=== PATIENT | female | born 1930 | race Caucasian/White ===

== ENCOUNTER 2017-08-19 16:10 | Emergency (ER) | payer MEDICARE ==
--- NOTE | 2017-08-19 16:47 | ER Document Report ---
ED Medical Screen (RME) - General Mode of Arrival: Ambulatory Information source: Patient TRAVEL OUTSIDE OF THE U.S. IN LAST 30 DAYS: No - General Chief Complaint: Laceration Stated Complaint: LEG LACERATION Time Seen by Provider: 08/19/17 16:30 Notes: Patient is an 86 year old female presenting to the emergency department complaining of a laceration to her left leg. Patient states she was sitting down when her daughters dog jumped over her and scratched her left leg. Patient' s daughter states she is currently on blood thinners and is unaware of her last tetanus. I have greeted and performed a rapid initial assessment of this patient. A comprehensive ED assessment and evaluation of the patient, analysis of test results and completion of the medical decision making process will be conducted by additional ED providers. (ALYCIA GAFFNEY) - Related Data Allergies/Adverse Reactions: morphine Allergy (Verified 08/19/17 16:16) phenobarbital Allergy (Verified 08/19/17 16:16) Past Medical History - General Information source: Patient, Relative Physical Exam - General General appearance: Appears well, Alert In distress: None - Extremities General lower extremity: Other - Laceration to the posterior left leg. Triangular shaped with oozing. - Vital signs Vitals: Temp Pulse Resp BP Pulse Ox 98.7 F 93 18 134/85 H 96 08/19/17 16:18 08/19/17 16:18 08/19/17 16:18 08/19/17 16:18 08/19/17 16:18 Course - Re-evaluation Re-evalutation: 08/19/17 18:27 I personally performed the services described in the documentation, reviewed and edited the documentation which was dictated to the scribe in my presence, and it accurately records my words and actions. (LULI HOLGUIN) - Vital Signs Vital signs: Temp Pulse Resp BP Pulse Ox 97.6 F 94 20 114/69 94 08/19/17 17:51 08/19/17 17:51 08/19/17 17:51 08/19/17 17:51 08/19/17 17:51 Doctor's Discharge - Discharge Clinical Impression: Skin laceration Disposition: HOME, SELF-CARE Instructions: Laceration Care ([facility]) Prescriptions: Sulfamethoxazole/Trimethoprim [Bactrim Ds Tablet] 1 each PO BID #14 tablet Scribe Documentation - Scribe Written by Corona:: Corona Monge, 08/19/2017 16:47 acting as scribe for :: Yuly
[2017-08-19] MEDS ORDERED: DIPH/PERTUSS(ACELL)/TETANUS VAC/PF 0.5 ML SYR (>=10YO) IM ONE (16:48)
--- NOTE | 2017-08-19 17:09 | ER Document Report ---
ED Wound - General Chief Complaint: Laceration Stated Complaint: LEG LACERATION Time Seen by Provider: 08/19/17 16:30 Mode of Arrival: Ambulatory Information source: Patient, Relative Notes: 86 years old elderly female was sleeping with her dog and the jaw dog jumped the dog's nail scratched on the left lower leg posteriorly and sustain a small laceration therefore she was brought to the ED. She is not complaining of any pain or discomfort. She is on blood thinners had bled but not currently. TRAVEL OUTSIDE OF THE [place]. IN LAST 30 DAYS: No - Related Data Allergies/Adverse Reactions: morphine Allergy (Verified 08/19/17 16:16) phenobarbital Allergy (Verified 08/19/17 16:16) Past Medical History - General Information source: Patient, Relative - Social History Smoking Status: Never Smoker Chew tobacco use (# tins/day): No Frequency of alcohol use: None Drug Abuse: None Family History: CVA, Hypertension Patient has suicidal ideation: No Patient has homicidal ideation: No Renal/ Medical History: Denies: Hx Peritoneal Dialysis - Kidney transplant Review of Systems - Review of Systems Notes: REVIEW OF SYSTEMS: CONSTITUTIONAL : Denies fever, chills, or sweats. Denies recent illness. EENT: Denies eye, ear, throat, or mouth pain or symptoms. Denies nasal or sinus congestion or discharge. Denies throat, tongue, or mouth swelling or difficulty swallowing. CARDIOVASCULAR: Denies chest pain. Denies palpitations or racing or irregular heart beat. Denies ankle edema. RESPIRATORY: Denies cough, cold, or chest congestion. Denies shortness of breath, difficulty breathing, or wheezing. GASTROINTESTINAL: Denies abdominal pain or distention. Denies nausea, vomiting , or diarrhea. Denies blood in vomitus, stools, or per rectum. Denies black, tarry stools. Denies constipation. GENITOURINARY: Denies difficulty urinating, painful urination, burning, frequency, blood in urine, or discharge. FEMALE GENITOURINARY: Denies vaginal bleeding, heavy or abnormal periods, irregular periods. Denies vaginal discharge or odor. MUSCULOSKELETAL: As per history of complain SKIN: Denies rash, lesions or sores. HEMATOLOGIC : Denies easy bruising or bleeding. LYMPHATIC: Denies swollen, enlarged glands. NEUROLOGICAL: Denies confusion or altered mental status. Denies passing out or loss of consciousness. Denies dizziness or lightheadedness. Denies headache. Denies weakness or paralysis or loss of use of either side. Denies problems with gait or speech. Denies sensory loss, numbness, or tingling. Denies seizures. PSYCHIATRIC: Denies anxiety or stress. Denies depression, suicidal ideation, or homicidal ideation. ALL OTHER SYSTEMS REVIEWED AND NEGATIVE. PHYSICAL EXAMINATION: GENERAL: Elderly female not in any major distress HEAD: Atraumatic, normocephalic. Musculoskeletal: Normal range of motion, no pitting or edema. No cyanosis. NEUROLOGICAL: Cranial nerves grossly intact. Normal speech, normal gait. Normal sensory, motor exams PSYCH: Normal mood, normal affect. SKIN: Skin over the left lower leg has a V-shaped laceration of total length of about 4 cm noted which is a full skin thickness more for skin tag. Dictation was performed using [employer] voice recognition software Physical Exam - Vital signs Vitals: Temp Pulse Resp BP Pulse Ox 98.7 F 93 18 134/85 H 96 08/19/17 16:18 08/19/17 16:18 08/19/17 16:18 08/19/17 16:18 08/19/17 16:18 Course - Re-evaluation Re-evalutation: 08/19/17 17:07 Skin was cleaned and adhered with Steri-Strips, given antibiotic - Vital Signs Vital signs: Temp Pulse Resp BP Pulse Ox 98.7 F 93 18 134/85 H 96 08/19/17 16:18 08/19/17 16:18 08/19/17 16:18 08/19/17 16:18 08/19/17 16:18 Discharge - Discharge Clinical Impression: Skin laceration Disposition: HOME, SELF-CARE Instructions: Laceration Care ([facility]) Prescriptions: Sulfamethoxazole/Trimethoprim [Bactrim Ds Tablet] 1 each PO BID #14 tablet
[2017-08-19 17:52] VITALS: BP 114/69
== END 2017-08-19 18:02 | disposition home or self-care (01) ==
LOC: ER 16:10
DX: S81.812A Laceration without foreign body, left lower leg, initial encounter (principal); W54.1XXA Struck by dog, initial encounter; Y93.84 Activity, sleeping; Z79.01 Long term (current) use of anticoagulants; Z88.5 Allergy status to narcotic agent; Z88.8 Allergy status to other drugs, medicaments and biological substances
CPT/HCPCS: 99283

== ENCOUNTER 2017-12-08 16:03 | Emergency (ER) | payer MEDICARE ==
--- NOTE | 2017-12-08 19:13 | ER Document Report ---
ED Medical Screen (RME) - General Chief Complaint: Shortness Of Breath Stated Complaint: SHORTNESS OF BREATH Time Seen by Provider: 12/08/17 18:59 Notes: Patient presents with heaviness in her chest that is worse with lying down. Patient was recently hospitalized in [place] for pneumonia and was there for approximately 5 days. She was discharged on November 29 and was provided Levaquin until December 03. She states that the heaviness is worse with lying down any has been going on since she left the hospital but it is been worse over the last several days so comes to the emergent she. She also states that the leg swelling bilaterally is become mildly increased from her baseline. She does not have a history of atrial fibrillation but she does have cardiac stents is on Plavix and aspirin with her last stent approximately 2 years ago. I have greeted and performed a rapid initial assessment of this patient. A comprehensive ED assessment and evaluation of the patient, analysis of test results and completion of the medical decision making process will be conducted by additional ED providers. PHYSICAL EXAMINATION: GENERAL: Frail elderly patient and in no acute distress. HEAD: Atraumatic, normocephalic. EYES: Pupils equal round extraocular movements intact, conjunctiva are normal. ENT: Nares patent NECK: Normal range of motion LUNGS: No respiratory distress, lung urban clear Musculoskeletal: Normal range of motion NEUROLOGICAL: Normal speech, normal gait. PSYCH: Normal mood, normal affect. SKIN: Warm, Dry, stasis dermatitis bilateral lower extremities with +1 pedal edema TRAVEL OUTSIDE OF THE U.S. IN LAST 30 DAYS: No - Related Data Allergies/Adverse Reactions: morphine Allergy (Verified 08/19/17 16:16) phenobarbital Allergy (Verified 08/19/17 16:16) Past Medical History - Social History Chew tobacco use (# tins/day): No Frequency of alcohol use: Rare Drug Abuse: None - Past Medical History Cardiac Medical History: Reports: Hx Heart Attack, Hx Hypercholesterolemia, Hx Hypertension - controlled Renal/ Medical History: Denies: Hx Peritoneal Dialysis Past Surgical History: Reports: Hx Kidney (Renal Surgery) - transplant Physical Exam - Vital signs Vitals: Temp Pulse Resp BP Pulse Ox 97.3 F 98 18 107/71 96 12/08/17 16:26 12/08/17 16:26 12/08/17 16:26 12/08/17 16:26 12/08/17 16:26 Course - Vital Signs Vital signs: Temp Pulse Resp BP Pulse Ox 97.3 F 98 18 107/71 96 12/08/17 16:26 12/08/17 16:26 12/08/17 16:26 12/08/17 16:26 12/08/17 16:26
--- NOTE | 2017-12-08 20:40 | ER Document Report ---
ED Respiratory Problem - General Chief Complaint: Shortness Of Breath Stated Complaint: SHORTNESS OF BREATH Time Seen by Provider: 12/08/17 18:59 Mode of Arrival: Ambulatory Information source: Patient, Relative TRAVEL OUTSIDE OF THE [place] IN LAST 30 DAYS: No - HPI Patient complains to provider of: Short of breath Onset: Other - 2-3 days Duration: Intermittent episodes Quality of pain: Pressure Severity: Moderate Context: Hx COPD Short of Breath: Mild Cough: Nonproductive Associated symptoms: Chest pain/discomfort, Short of breath Similar symptoms previously: Yes Recently seen / treated by doctor: Yes Notes: Patient is an 87-year-old female brought to the emergency room by daughter for complaints of chest heaviness with shortness of breath worsens at nighttime when she lies down to go to sleep, it has been going on for the past 3 nights, she was recently admitted at outside hospital for pneumonia, has completed a course of antibiotics on 12/03, denies any fevers, denies any symptoms at present time, she did recently travel to [place] to attend a family , patient does not use oxygen at home but has a history of COPD as well as coronary artery disease, denies a history of atrial fibrillation - Related Data Allergies/Adverse Reactions: morphine Allergy (Verified 08/19/17 16:16) phenobarbital Allergy (Verified 08/19/17 16:16) Past Medical History - General Information source: Patient - Social History Smoking Status: Never Smoker Chew tobacco use (# tins/day): No Frequency of alcohol use: Rare Drug Abuse: None Family History: CVA, Hypertension Patient has suicidal ideation: No Patient has homicidal ideation: No - Past Medical History Cardiac Medical History: Reports: Hx Heart Attack, Hx Hypercholesterolemia, Hx Hypertension - controlled Renal/ Medical History: Denies: Hx Peritoneal Dialysis Past Surgical History: Reports: Hx Kidney (Renal Surgery) - transplant Review of Systems - Review of Systems Constitutional: No symptoms reported EENT: No symptoms reported Cardiovascular: Chest pain Respiratory: Short of breath Gastrointestinal: No symptoms reported Genitourinary: No symptoms reported Female Genitourinary: No symptoms reported Musculoskeletal: No symptoms reported Skin: No symptoms reported Hematologic/Lymphatic: No symptoms reported Neurological/Psychological: No symptoms reported -: Yes All other systems reviewed and negative Physical Exam - Vital signs Vitals: Temp Pulse Resp BP Pulse Ox 97.3 F 98 18 107/71 96 12/08/17 16:26 12/08/17 16:26 12/08/17 16:26 12/08/17 16:26 12/08/17 16:26 Interpretation: Normal - General General appearance: Appears well, Alert - HEENT Head: Normocephalic, Atraumatic Eyes: Normal Pupils: PERRL - Respiratory Respiratory status: No respiratory distress Chest status: Nontender Breath sounds: Normal Chest palpation: Normal - Cardiovascular Rhythm: Regular Heart sounds: Normal auscultation Murmur: No - Abdominal Inspection: Normal Distension: No distension Bowel sounds: Normal Tenderness: Nontender Organomegaly: No organomegaly - Back Back: Normal, Nontender - Extremities General upper extremity: Normal inspection, Nontender, Normal color, Normal ROM , Normal temperature General lower extremity: Nontender, Edema, Normal ROM, Normal temperature. No: Christin's sign - Neurological Neuro grossly intact: Yes Cognition: Normal Orientation: AAOx4 Verna Coma Scale Eye Opening: Spontaneous [place] Coma Scale Verbal: Oriented [place] Coma Scale Motor: Obeys Commands Verna Coma Scale Total: 15 Speech: Normal Motor strength normal: LUE, RUE, LLE, RLE Sensory: Normal - Psychological Associated symptoms: Normal affect, Normal mood - Skin Skin Temperature: Warm Skin Moisture: Dry Skin Color: Normal Course - Re-evaluation Re-evalutation: 12/08/17 22:22 Medical records were received from outside hospital that patient recently stated , EKG is consistent with atrial fibrillation, therefore today's EKG is not new onset A. fib, patient is already on Xarelto, findings today consistent with mild congestive heart failure, findings discussed with patient and daughter at bedside, she was offered IV Lasix which she refused but she was agreeable to taking p.o. Lasix at home, was given a prescription for 1 week's worth and advised to follow-up with her primary care provider for further evaluation and treatment, patient acknowledges understanding and agreement with this plan - Vital Signs Vital signs: Temp Pulse Resp BP Pulse Ox 97.3 F 98 21 H 134/87 H 94 12/08/17 16:26 12/08/17 16:26 12/08/17 23:24 12/08/17 23:24 12/08/17 23:24 - Laboratory Result Diagrams: 12/08/17 21:08 12/08/17 21:08 Laboratory results interpreted by me: 12/08/17 12/08/17 12/08/17 21:08 21:08 21:08 RBC 3.63 L MCV 103 H MCH 34.7 H RDW 15.9 H Carbon Dioxide 31 H Creatinine 0.51 L NT-Pro-B Natriuret Pep 7540 H Total Protein 5.7 L - Diagnostic Test Radiology reviewed: Image reviewed, Reports reviewed - EKG Interpretation by Me Rhythm: A.Fib Additional EKG results interpreted by me: 12/08/17 22:23 Ventricular paced rhythm at a rate of 116 Discharge - Discharge Clinical Impression: Congestive heart failure Qualifiers: Heart failure type: other Qualified Code(s): I50.9 - Heart failure, unspecified Condition: Stable Disposition: HOME, SELF-CARE Instructions: Congestive Heart Failure ([facility]) Additional Instructions: Follow up with your primary care provider in one to 2 days. Return to the emergency room immediately if symptoms worsen or any additional concerns. Prescriptions: Furosemide [Lasix 40 mg Tablet] 40 mg PO QAM #7 tablet
[2017-12-08 21:44] LABS: ABSOLUTE LYMPHOCYTES (AUTO) 1.1 10^3/uL (0.5-4.7); ABSOLUTE MONOCYTES (AUTO) 0.5 10^3/uL (0.1-1.4); BASOPHILS % (AUTO) 0.4 % (0-2); EOSINOPHILS % (AUTO) 0.7 % (0-6); HEMATOCRIT 37.5 % (36.0-47.0); HEMOGLOBIN 12.6 g/dL (12.0-15.5); LYMPHOCYTES % (AUTO) 24.4 % (13-45); MEAN CORPUSCULAR HEMOGLOBIN 34.7 pg (27.0-33.4); MEAN CORPUSCULAR HGB CONC 33.6 g/dL (32.0-36.0); MEAN CORPUSCULAR VOLUME 103 fl (80-97); MONOCYTES % (AUTO) 9.7 % (3-13); PLATELET COUNT 150 10^3/uL (150-450); RED BLOOD COUNT 3.63 10^6/uL (3.72-5.28); RED CELL DISTRIBUTION WIDTH 15.9 % (11.5-14.0); SEGMENTED NEUTROPHILS % (AUTO) 64.8 % (42-78); TOTAL CELLS COUNTED % (AUTO) 100 %; WHITE BLOOD COUNT 4.7 10^3/uL (4.0-10.5)
--- NOTE | 2017-12-08 21:55 | RADIOLOGY REPORT (SQ) ---
EXAM DESCRIPTION: CHEST 2 VIEWS COMPLETED DATE/TIME: 12/08/2017 9:38 pm REASON FOR STUDY: chest heaviness COMPARISON: None. EXAM PARAMETERS: NUMBER OF VIEWS: two views TECHNIQUE: Digital Frontal and Lateral radiographic views of the chest acquired. RADIATION DOSE: NA LIMITATIONS: none FINDINGS: LUNGS AND PLEURA: Interstitial changes. Increased opacification in the medial right base. Minimal right pleural effusion. MEDIASTINUM AND HILAR STRUCTURES: No masses or contour abnormalities. HEART AND VASCULAR STRUCTURES: Cardiomegaly. Pulmonary vascular congestion. No brandon failure. BONES: No acute findings. HARDWARE: None in the chest. OTHER: No other significant finding. IMPRESSION: Cardiomegaly without failure. Chronic lung changes. Cannot exclude a minimal infiltrat e in the medial right base. TECHNICAL DOCUMENTATION: JOB ID: [id number] [employer]- All Rights Reserved Reading location - IP/workstation name: [email or web address]
[2017-12-08 21:59] LABS: INTERNATIONAL RATION (INR) 1.06; PROTHROMBIN TIME 14.4 SEC (11.4-15.4)
[2017-12-08 22:07] LABS: ALANINE AMINOTRANSFERASE 41 U/L (9-52); ALBUMIN 3.7 g/dL (3.5-5.0); ALKALINE PHOSPHATASE 90 U/L (38-126); ANION GAP 7 (5-19); ASPARTATE AMINO TRANSFERASE 35 U/L (14-36); BILIRUBIN,DIRECT 0.2 mg/dL (0.0-0.4); BILIRUBIN,TOTAL 0.4 mg/dL (0.2-1.3); BLOOD UREA NITROGEN 20 mg/dL (7-20); CALCIUM 9.5 mg/dL (8.4-10.2); CARBON DIOXIDE 31 mmol/L (22-30); CHLORIDE 103 mmol/L (98-107); GLUCOSE 90 mg/dL (75-110); POTASSIUM 4.4 mmol/L (3.6-5.0); SODIUM 141.1 mmol/L (137-145); TOTAL PROTEIN 5.7 g/dL (6.3-8.2)
[2017-12-08 22:15] LABS: NT PRO BNP 7540 pg/mL (<450)
[2017-12-08 22:16] LABS: TROPONIN I < 0.012 ng/mL
--- NOTE | 2017-12-08 22:58 | EKG REPORT ---
SEVERITY:- ABNORMAL ECG - ATRIAL FIBRILLATION MULTIFORM VENTRICULAR PREMATURE COMPLEXES LEFT VENTRICULAR HYPERTROPHY : Confirmed by: Ben Purdy 08-Dec-2017 22:57:27
[2017-12-08] MEDS ORDERED: FUROSEMIDE INJ/PF 40 MG/4 ML SDV IV ONE (23:17)
[2017-12-08 23:27] VITALS: BP 134/87
== END 2017-12-09 00:08 | disposition home or self-care (01) ==
LOC: ER 16:03
DX: I50.9 Heart failure, unspecified (principal); R06.02 Shortness of breath; R07.9 Chest pain, unspecified; I48.91 Unspecified atrial fibrillation; E78.00 Pure hypercholesterolemia, unspecified; I11.0 Hypertensive heart disease with heart failure; Z88.6 Allergy status to analgesic agent; I25.2 Old myocardial infarction
CPT/HCPCS: 36415; 71046; 80053; 83735; 83880; 84443; 84484; 85025; 85610; 93005; 93010; 99285

== ENCOUNTER → 2017-12-27 | Outpatient (CLI) | payer MEDICARE ==
[2017-12-27 14:22] LABS: ABSOLUTE MONOCYTES (AUTO) 0.3 10^3/uL (0.1-1.4); ABSOLUTE NEUT (AUTO) 3.2 10^3/uL (1.7-8.2); BASOPHILS % (AUTO) 0.7 % (0-2); EOSINOPHILS % (AUTO) 0.8 % (0-6); HEMOGLOBIN 13.3 g/dL (12.0-15.5); LYMPHOCYTES % (AUTO) 22.3 % (13-45); MEAN CORPUSCULAR HEMOGLOBIN 34.6 pg (27.0-33.4); MEAN CORPUSCULAR HGB CONC 33.3 g/dL (32.0-36.0); MEAN CORPUSCULAR VOLUME 104 fl (80-97); MONOCYTES % (AUTO) 7.1 % (3-13); PLATELET COUNT 146 10^3/uL (150-450); RED BLOOD COUNT 3.85 10^6/uL (3.72-5.28); RED CELL DISTRIBUTION WIDTH 16.1 % (11.5-14.0); SEGMENTED NEUTROPHILS % (AUTO) 69.1 % (42-78); TOTAL CELLS COUNTED % (AUTO) 100 %; WHITE BLOOD COUNT 4.7 10^3/uL (4.0-10.5)
[2017-12-27 14:22] LABS: APPEARANCE,URINE SLIGHTLY-CLOUDY; BILIRUBIN,URINE NEGATIVE (NEGATIVE); COLOR,URINE YELLOW; GLUCOSE, URINE NEGATIVE (NEGATIVE); KETONES,URINE NEGATIVE (NEGATIVE); LEUKOCYTE ESTERASE,URINE LARGE (NEGATIVE); NITRITE,URINE NEGATIVE (NEGATIVE); PROTEIN,URINE 30 mg/dL (NEGATIVE); URINE SPECIFIC GRAVITY 1.021; UROBILINOGEN,URINE NEGATIVE mg/dL (<2.0)
[2017-12-27 14:42] LABS: ALANINE AMINOTRANSFERASE 33 U/L (9-52); ALBUMIN 4.1 g/dL (3.5-5.0); ALKALINE PHOSPHATASE 89 U/L (38-126); ANION GAP 12 (5-19); ASPARTATE AMINO TRANSFERASE 32 U/L (14-36); BILIRUBIN,DIRECT 0.2 mg/dL (0.0-0.4); BILIRUBIN,TOTAL 0.2 mg/dL (0.2-1.3); BLOOD UREA NITROGEN 32 mg/dL (7-20); CALCIUM 9.8 mg/dL (8.4-10.2); CARBON DIOXIDE 30 mmol/L (22-30); CHLORIDE 103 mmol/L (98-107); GLUCOSE 102 mg/dL (75-110); POTASSIUM 4.4 mmol/L (3.6-5.0); SODIUM 145.2 mmol/L (137-145); TOTAL PROTEIN 6.7 g/dL (6.3-8.2)
== END ==
LOC: OD 13:10
PROVIDERS: ATTEND Internal Medicine Nephrology
DX: I50.9 Heart failure, unspecified (principal); R60.9 Edema, unspecified; Z94.0 Kidney transplant status
CPT/HCPCS: 36415; 80053; 81001; 83735; 85025

== ENCOUNTER 2018-01-15 13:56 | Inpatient (IN) | payer MEDICARE ==
--- NOTE | 2018-01-15 14:28 | RADIOLOGY REPORT (SQ) ---
EXAM DESCRIPTION: CHEST SINGLE VIEW COMPLETED DATE/TIME: 01/15/2018 2:17 pm REASON FOR STUDY: cough COMPARISON: None. EXAM PARAMETERS: NUMBER OF VIEWS: One view. TECHNIQUE: Single frontal radiographic view of the chest acquired. RADIATION DOSE: NA LIMITATIONS: None. FINDINGS: LUNGS AND PLEURA: Chronic bibasilar pleuroparenchymal changes. MEDIASTINUM AND HILAR STRUCTURES: No masses. Contour normal. HEART AND VASCULAR STRUCTURES: Cardiomegaly with aortic atherosclerosis. The pulmonary vasculature a ppears less prominent. BONES: Dorsal scoliosis convex left. HARDWARE: None in the chest. OTHER: No other significant finding. IMPRESSION: Cardiomegaly. Chronic bibasilar pleuroparenchymal changes. TECHNICAL DOCUMENTATION: JOB ID: [id number] [employer]- All Rights Reserved Reading location - IP/workstation name: [email or web address]
[2018-01-15] MEDS ORDERED: METOPROLOL TARTRATE PF/INJ 5 MG/5 ML SDV IV ONE (14:42)
--- NOTE | 2018-01-15 14:42 | ER Document Report ---
ED General - General Chief Complaint: General Weakness Stated Complaint: GENERAL WEAKNESS Time Seen by Provider: 01/15/18 14:04 Notes: The patient is an 87-year-old female, past medical history kidney transplant in 1959, prior [place] in the , prior stroke in the , CHF, A fib (on Plavix and 325 mg ASA), presents after having generalized weakness for a few minutes earlier today. Symptoms completely resolved upon arrival to the ER. She recently moved from [facility] to live with her grandchildren. She denies any focal weakness, palpitations, fevers, cough, shortness of breath , nausea, vomiting, ataxia, headache, blurry vision, numbness, tingling or syncope. TRAVEL OUTSIDE OF THE [place] IN LAST 30 DAYS: No - Related Data Allergies/Adverse Reactions: morphine Allergy (Verified 08/19/17 16:16) phenobarbital Allergy (Verified 08/19/17 16:16) Past Medical History - General Information source: Patient, Relative - Social History Smoking Status: Unknown if Ever Smoked Family History: CVA, Hypertension - Past Medical History Cardiac Medical History: Reports: Hx Heart Attack, Hx Hypercholesterolemia, Hx Hypertension - controlled Renal/ Medical History: Denies: Hx Peritoneal Dialysis Past Surgical History: Reports: Hx Kidney (Renal Surgery) - transplant Review of Systems - Review of Systems Notes: REVIEW OF SYSTEMS: CONSTITUTIONAL: -fevers, -chills EENT: -eye pain, -difficulty swallowing, -nasal congestion CARDIOVASCULAR: -chest pain, -syncope. RESPIRATORY: -cough, -SOB GASTROINTESTINAL: -abdominal pain, -nausea, -vomiting, -diarrhea GENITOURINARY: -dysuria, -hematuria MUSCULOSKELETAL: -back pain, -neck pain SKIN: -rash or skin lesions. HEMATOLOGIC: -easy bruising or bleeding. LYMPHATIC: -swollen, enlarged glands. NEUROLOGICAL: -altered mental status or loss of consciousness, -headache, - neurologic symptoms PSYCHIATRIC: -anxiety, -depression. ALL OTHER SYSTEMS REVIEWED AND NEGATIVE. Physical Exam - Vital signs Vitals: Resp Pulse Ox 20 97 01/15/18 14:29 01/15/18 14:29 - Notes Notes: PHYSICAL EXAMINATION: GENERAL: Well-appearing, well-nourished and in no acute distress. HEAD: Atraumatic, normocephalic. EYES: Chronic right eyelid droop, pupils equal round and reactive to light, conjunctiva are normal. ENT: nares patent, oropharynx clear without exudates. Moist mucous membranes. NECK: Normal range of motion, supple without lymphadenopathy LUNGS: Breath sounds clear to auscultation bilaterally and equal. No wheezes rales or rhonchi. HEART: Irregularly irregular rhythm, tachycardia ABDOMEN: Soft, nontender, normoactive bowel sounds. No guarding, no rebound. No masses appreciated. EXTREMITIES: Normal range of motion, no pitting or edema. No cyanosis. NEUROLOGICAL: Cranial nerves grossly intact. Normal speech, normal gait. Normal sensory and motor exams. 5/5 strength in all 4 extremities. Initial tremor present. PSYCH: Normal mood, normal affect. SKIN: Warm, Dry, normal turgor, no rashes or lesions noted. Course - Re-evaluation Re-evalutation: Patient appears well. She has no acute focal neuro symptoms on physical exam. She is in A fib. w/ RVR with rates of 100's-130's. BP is remaining normal. She is unsure if she took her morning Metoprolol dose. 01/15/18 15:10 Pt went into about 8 seconds of polymorphic ventricular tachycardia, consistent with torsades. She was asymptomatic at this time and it resolved spontaneously. Labs are still pending, but patient provided 2 g of magnesium. Spoke to Dr. Byrd (cardiology consult) and he does not recommend beginning antiarrhythmics at this time. He will consult on patient and recommends admission to [place] to [facility]. She has not seen a PMD in [facility] since moving here a few months ago. Pt would like to be a FULL CODE at this time. 01/15/18 16:13 Labs are unremarkable, other than elevated pro-BNP, but she does not appear fluid overloaded and has no pulmonary edema on CXR. Spoke to Clair Walden NP (Hospitalist) and she has accepted patient to [facility] as Inpatient. Pt' s HR is 90's-100's after 2.5 mg IV metoprolol and she remains asymptomatic. - Vital Signs Vital signs: Temp Pulse Resp BP Pulse Ox 21 H 112/77 97 01/15/18 15:48 01/15/18 15:48 01/15/18 15:48 - Laboratory Result Diagrams: 01/15/18 14:58 01/15/18 14:58 Laboratory results interpreted by me: 01/15/18 01/15/18 01/15/18 14:58 14:58 14:58 RBC 3.58 L MCV 103 H MCH 34.3 H RDW 15.8 H Plt Count 127 L BUN 33 H Glucose 112 H Creatine Kinase 23 L NT-Pro-B Natriuret Pep 9530 H Total Protein 6.0 L Urine Protein Urine Ascorbic Acid 01/15/18 15:30 RBC MCV MCH RDW Plt Count BUN Glucose Creatine Kinase NT-Pro-B Natriuret Pep Total Protein Urine Protein 100 H Urine Ascorbic Acid 40 H - Diagnostic Test Radiology reviewed: Image reviewed, Reports reviewed Radiology results interpreted by me: CXR: Cardiomegaly. Chronic bibasilar pleuroparenchymal changes. - EKG Interpretation by Me EKG shows normal: Intervals, ST-T Waves Rate: Tachycardia Rhythm: A.Fib Critical Care Note - Critical Care Note Total time excluding time spent on procedures (mins): 36 Discharge - Discharge Clinical Impression: Polymorphic ventricular tachycardia, Atrial fibrillation with rapid ventricular response, Generalized weakness Condition: Stable Disposition: ADMITTED INPATIENT Admitting Provider: Hospitalist [facility] Unit Admitted: [facility]
[2018-01-15 15:16] LABS: ABSOLUTE MONOCYTES (AUTO) 0.4 10^3/uL (0.1-1.4); ABSOLUTE NEUT (AUTO) 3.6 10^3/uL (1.7-8.2); BASOPHILS % (AUTO) 0.7 % (0-2); EOSINOPHILS % (AUTO) 0.4 % (0-6); HEMATOCRIT 36.8 % (36.0-47.0); HEMOGLOBIN 12.3 g/dL (12.0-15.5); LYMPHOCYTES % (AUTO) 19.7 % (13-45); MEAN CORPUSCULAR HEMOGLOBIN 34.3 pg (27.0-33.4); MEAN CORPUSCULAR HGB CONC 33.4 g/dL (32.0-36.0); MEAN CORPUSCULAR VOLUME 103 fl (80-97); MONOCYTES % (AUTO) 7.8 % (3-13); PLATELET COUNT 127 10^3/uL (150-450); RED BLOOD COUNT 3.58 10^6/uL (3.72-5.28); RED CELL DISTRIBUTION WIDTH 15.8 % (11.5-14.0); SEGMENTED NEUTROPHILS % (AUTO) 71.4 % (42-78); TOTAL CELLS COUNTED % (AUTO) 100 %
[2018-01-15 15:35] LABS: ALANINE AMINOTRANSFERASE 27 U/L (9-52); ALBUMIN 3.5 g/dL (3.5-5.0); ALKALINE PHOSPHATASE 96 U/L (38-126); ANION GAP 11 (5-19); ASPARTATE AMINO TRANSFERASE 28 U/L (14-36); BILIRUBIN,DIRECT 0.3 mg/dL (0.0-0.4); BILIRUBIN,TOTAL 0.5 mg/dL (0.2-1.3); BLOOD UREA NITROGEN 33 mg/dL (7-20); CALCIUM 9.2 mg/dL (8.4-10.2); CARBON DIOXIDE 26 mmol/L (22-30); CHLORIDE 106 mmol/L (98-107); CREATINE KINASE 23 U/L (30-135); GLUCOSE 112 mg/dL (75-110); POTASSIUM 3.9 mmol/L (3.6-5.0); SODIUM 143.2 mmol/L (137-145)
[2018-01-15 15:46] LABS: NT PRO BNP 9530 pg/mL (<450)
[2018-01-15] MEDS: MAGNESIUM SULFATE/D5W 1 GM/100 ML RTUPB IV SCH ×2 (15:47→16:12)
[2018-01-15 15:49] LABS: TROPONIN I < 0.012 ng/mL
[2018-01-15 15:52] LABS: FREE T3 3.72 pg/mL (2.77-5.27); FREE T4 (FREE THYROXINE) 1.5 ng/dL (0.78-2.19)
[2018-01-15 16:01] LABS: APPEARANCE,URINE CLEAR; BILIRUBIN,URINE NEGATIVE (NEGATIVE); COLOR,URINE AMBER; GLUCOSE, URINE NEGATIVE (NEGATIVE); KETONES,URINE NEGATIVE (NEGATIVE); LEUKOCYTE ESTERASE,URINE NEGATIVE (NEGATIVE); NITRITE,URINE NEGATIVE (NEGATIVE); PROTEIN,URINE 100 mg/dL (NEGATIVE); URINE SPECIFIC GRAVITY 1.023; UROBILINOGEN,URINE NEGATIVE mg/dL (<2.0)
[2018-01-15 16:05] LABS: THYROID STIMULATING HORMONE 1.79 uIU/mL (0.47-4.68)
[2018-01-15] MEDS ORDERED: NORMAL SALINE 1000 ML 1,000 ML IV PRN (16:51)
[2018-01-15] MEDS ORDERED: ASPIRIN 81 MG TABLET, CHEWABLE PO ONE (17:15)
[2018-01-15] MEDS ORDERED: CLOPIDOGREL BISULFATE 75 MG TABLET PO ONE (17:15)
--- NOTE | 2018-01-15 17:41 | PDOC H&P ---
History of Present Illness Patient complains of: Generalized weakness History of Present Illness: YAHIR MERAZ is a 87 year old female who was a poor historian; unfortunately , her daughter is also a poor historian and her home medications are not available. It is known that the patient has a past medical history of kidney transplant in the 1960s, prior PR, possible CVA, apparent CHF (although the patient and family member deny), A. fib (on Plavix and aspirin), Gonzalez's palsy and an intention tremor who presented to the emergency department today by EMS for complaint of generalized weakness 24 hours. The patient denies any other symptoms; she denies fever, chills, body aches, chest pain, palpitations, dyspnea, orthopnea, abdominal pain, nausea vomiting or diarrhea. While in the emergency department she was noted on telemetry to be in A. fib with a heart rate of 110-130. She briefly had a period of polymorphic ventricular tachycardia suspicious for torsades. The emergency department has provided 2 g of IV magnesium. Chest x-ray reveals cardiomegaly, chemistry shows a BUN of 33, elevated proBNP of 9530, normal potassium, magnesium, creatinine, and thyroid panel. The patient appears to be cachectic and significantly dehydrated; breath sounds are clear, skin tenting is present, and dry mucous membranes. The emergency department has already consulted Dr. Ryan who is agreed to assist in managing this patient. He recommends initiating diltiazem 30 mg p.o. every 6 hours. She is referred to the hospitalist service for admission and management of generalized weakness, atrial fibrillation, dysrhythmia, and dehydration. Past Medical History Cardiac Medical History: Reports: Atrial Fibrillation, Congestive Heart Failure , Myocardial Infarction, Hyperlipidema, Hypertension Pulmonary Medical History: Reports: None EENT Medical History: Reports: None Neurological Medical History: Reports: Ischemic CVA, Other - Armbrust palsy Denies: Seizures Endocrine Medical History: Reports: None Renal/ Medical History: Reports: Other - Kidney transplant Malignancy Medical History: Reports: None GI Medical History: Reports: None Musculoskeltal Medical History: Reports: None Skin Medical History: Reports: None Psychiatric Medical History: Reports: None Traumatic Medical History: Reports: None Hematology: Reports: None Infectious Medical History: Reports: None Past Surgical History Past Surgical History: Reports: Renal Transplant Denies: Internal Defibrillator, Pacemaker Social History Information Source: Patient, Relative Lives with: Family Smoking Status: Never Smoker Frequency of Alcohol Use: None Hx Recreational Drug Use: No Drugs: None - Advance Directive Resuscitation Status: Full Code Surrogate healthcare decision maker:: The patient's daughter, Kathie Lim, Family History Family History: CVA, Hypertension Family History: Limited 2/2 poor historian Parental Family History Reviewed: Yes Children Family History Reviewed: Yes Sibling(s) Family History Reviewed.: Yes Medication/Allergy Home Medications: Sulfamethoxazole/Trimethoprim [Bactrim Ds Tablet] 1 each PO BID #14 tablet 08/19 Furosemide [Lasix 40 mg Tablet] 40 mg PO QAM #7 tablet 12/08/17 Allergies/Adverse Reactions: morphine Allergy (Verified 08/19/17 16:16) phenobarbital Allergy (Verified 08/19/17 16:16) Review of Systems Constitutional: PRESENT: fatigue, weakness. ABSENT: chills, fever(s), headache( s), weight gain, weight loss Eyes: ABSENT: visual disturbances Ears: ABSENT: hearing changes Cardiovascular: ABSENT: chest pain, dyspnea on exertion, edema, orthropnea, palpitations Respiratory: ABSENT: cough, hemoptysis Gastrointestinal: ABSENT: abdominal pain, constipation, diarrhea, hematemesis, hematochezia, nausea, vomiting Genitourinary: PRESENT: difficulty urinating. ABSENT: dysuria, hematuria Musculoskeletal: ABSENT: joint swelling Integumentary: ABSENT: rash, wounds Neurological: PRESENT: weakness. ABSENT: abnormal gait, abnormal speech, confusion, dizziness, focal weakness, syncope Psychiatric: ABSENT: anxiety, depression, homidical ideation, suicidal ideation Endocrine: ABSENT: cold intolerance, heat intolerance, polydipsia, polyuria Hematologic/Lymphatic: ABSENT: easy bleeding, easy bruising Physical Exam Vital Signs: Temp Pulse Resp BP Pulse Ox 19 99/71 L 96 01/15/18 16:31 01/15/18 16:31 01/15/18 16:31 General appearance: PRESENT: no acute distress, cooperative, disheveled, hard of hearing, well-developed, other - Cachectic, poor hygiene Head exam: PRESENT: atraumatic, normocephalic Eye exam: PRESENT: conjunctiva pink, EOMI, PERRLA, other - Limited elevation of right upper eyelid secondary to Gonzalez's palsy. ABSENT: scleral icterus Ear exam: PRESENT: normal external ear exam Mouth exam: PRESENT: dry mucosa, tongue midline Teeth exam: PRESENT: edentulous Neck exam: ABSENT: carotid bruit, JVD, lymphadenopathy, thyromegaly Respiratory exam: PRESENT: clear to auscultation funmi, symmetrical, unlabored. ABSENT: rales, rhonchi, wheezes Cardiovascular exam: PRESENT: irregular rhythm, +S1, +S2, tachycardia. ABSENT: diastolic murmur, rubs, systolic murmur Pulses: PRESENT: normal dorsalis pedis pul, other - Trace right pedal pulse; unable to find left pedal pulse Vascular exam: PRESENT: normal capillary refill - Bilateral upper extremities and right foot, other - Lt foot dusky, cold to touch, with delayed 4-5 sec cap refill GI/Abdominal exam: PRESENT: normal bowel sounds, soft, other - Left abdominal bulge secondary to kidney transplant. ABSENT: distended, guarding, mass, organolmegaly, rebound, tenderness Rectal exam: PRESENT: deferred Extremities exam: PRESENT: full ROM, pedal edema - Bilateral, Rt>Lt. ABSENT: calf tenderness, clubbing Neurological exam: PRESENT: alert, awake, oriented to person, oriented to place , oriented to time, oriented to situation, CN II-XII grossly intact, other - Forgetful. ABSENT: motor sensory deficit Psychiatric exam: PRESENT: appropriate affect, normal mood. ABSENT: homicidal ideation, suicidal ideation Skin exam: PRESENT: dry, intact, warm, other - Crusts to bilateral upper and lower extremities. +tenting of skin over sternum >10 sec. ABSENT: cyanosis, rash Results Laboratory Results: 01/15/18 14:58 01/15/18 14:58 01/15/18 01/15/18 01/15/18 14:58 14:58 14:58 WBC 5.0 RBC 3.58 L Hgb 12.3 Hct 36.8 MCV 103 H MCH 34.3 H MCHC 33.4 RDW 15.8 H Plt Count 127 L Seg Neutrophils % 71.4 Lymphocytes % 19.7 Monocytes % 7.8 Eosinophils % 0.4 Basophils % 0.7 Absolute Neutrophils 3.6 Absolute Lymphocytes 1.0 Absolute Monocytes 0.4 Absolute Eosinophils 0.0 Absolute Basophils 0.0 Sodium 143.2 Potassium 3.9 Chloride 106 Carbon Dioxide 26 Anion Gap 11 BUN 33 H Creatinine 0.53 Est GFR ( Amer) > 60 Est GFR (Non-Af Amer) > 60 Glucose 112 H Calcium 9.2 Magnesium 2.1 Total Bilirubin 0.5 AST 28 ALT 27 Alkaline Phosphatase 96 Total Protein 6.0 L Albumin 3.5 TSH Free T4 Free T3 pg/mL Urine Color Urine Appearance Urine pH Ur Specific [place] Urine Protein Urine Glucose (UA) Urine Ketones Urine Blood Urine Nitrite Ur Leukocyte Esterase Urine WBC (Auto) Urine RBC (Auto) 01/15/18 01/15/18 14:58 15:30 WBC RBC Hgb Hct MCV MCH MCHC RDW Plt Count Seg Neutrophils % Lymphocytes % Monocytes % Eosinophils % Basophils % Absolute Neutrophils Absolute Lymphocytes Absolute Monocytes Absolute Eosinophils Absolute Basophils Sodium Potassium Chloride Carbon Dioxide Anion Gap BUN Creatinine Est GFR ( Amer) Est GFR (Non-Af Amer) Glucose Calcium Magnesium Total Bilirubin AST ALT Alkaline Phosphatase Total Protein Albumin TSH 1.79 Free T4 1.50 Free T3 pg/mL 3.72 Urine Color JOSE Urine Appearance CLEAR Urine pH 5.0 Ur Specific [place] 1.023 Urine Protein 100 H Urine Glucose (UA) NEGATIVE Urine Ketones NEGATIVE Urine Blood NEGATIVE Urine Nitrite NEGATIVE Ur Leukocyte Esterase NEGATIVE Urine WBC (Auto) 1 Urine RBC (Auto) 2 01/15/18 01/15/18 14:58 14:58 Creatine Kinase 23 L Troponin I < 0.012 NT-Pro-B Natriuret Pep 9530 H Impressions: Chest X-Ray 01/15/18 14:05 IMPRESSION: Cardiomegaly. Chronic bibasilar pleuroparenchymal changes. Assessment & Plan - Diagnosis (1) Atrial fibrillation with rapid ventricular response Is this a current diagnosis for this admission?: Yes Plan: The patient presented with complaint of generalized weakness and was found to be in atrial fibrillation with a rapid ventricular response. She is rhythm unaware. EKG demonstrates atrial fibrillation with a ventricular rate of 77-167, nonspecific T-wave abnormalities to diffuse leads. BMP unremarkable. TSH panel normal. Chest x-ray demonstrates cardiomegaly. Initial troponin is normal. The patient is admitted to [facility] on continuous cardiac telemetry. She is provided supplemental oxygen as needed to maintain oxygen saturations greater than 90%. Cardiology has been consulted; appreciate their evaluation recommendations. I spoke with Dr. Byrd over the phone who recommends that we start the patient on diltiazem 30 mg every 6 hours p.o. Continue daily aspirin and Plavix therapy. Remaining plan per cardiology's recommendations. (2) Polymorphic ventricular tachycardia Is this a current diagnosis for this admission?: Yes Plan: While in the emergency department on cardiac telemetry the patient was noted to have a brief episode of polymorphic ventricular tachycardia consistent with torsades to point the resolved spontaneously. The patient was rhythm aware and did not experience chest pain, palpitations, shortness of breath, dizziness, or worsening weakness during the episode. EKG demonstrates atrial fibrillation with a rapid ventricular rate. BMP and magnesium are unremarkable. ED has provided the patient with 2 g IV magnesium. Will trend troponins. Cardiology has been consulted; appreciate their evaluation recommendations. Remaining plan per cardiology. (3) Generalized weakness Is this a current diagnosis for this admission?: Yes Plan: The patient presented to the emergency department with a complaint of 1 day of generalized weakness. This is likely multifactorial secondary to atrial fibrillation with rapid ventricular response, dehydration, poor nutrition, and admitted noncompliance with cardiac medications. She will be admitted to [facility] on continuous cardiac telemetry. We will address atrial fibrillation and CHF; cardiology has been consulted. Echocardiogram pending. Remaining plan per Dr. Prescott. The patient appears to be severely volume depleted. Will provide gentle IV fluid rehydration. ST/PT/OT are consulted. exercise planner is consulted. (4) CHF (congestive heart failure) Qualifiers: Heart failure type: unspecified Is this a current diagnosis for this admission?: Yes Plan: The patient and family are unaware of diagnosis of CHF. They do not know the complete list of her medications and her pill bottles are not available, however the to know that the patient is on aspirin, Plavix, Toprol, and Lasix. The patient's daughter admits that they frequently skip doses of medications at home "when she does not feel good." Cardiomegaly by chest x-ray. proBNP elevated > 9k Initial troponin is negative Echocardiogram pending. The patient appears to be volume depleted and so I will provide gentle IV fluids ; normal saline at 100 mils per hour 1 L. We will repeat proBNP with a.m. labs. She is placed on a cardiac diet. Strict I's and O's and daily weights. Cardiology has been consulted; appreciate their evaluation recommendations. (5) Dehydration Is this a current diagnosis for this admission?: Yes Plan: Dehydration evidenced by hypotension (Blood pressure is 96/60), tachycardia, elevated BUN, skin tenting, poor capillary refill, dry mucous membranes. Although the patient's BNP is elevated there is no indication of fluid volume overload. Will provide gentle IVF x1L. As the patient appears quite brittle and I am concerned that she will easily become overloaded, will only order 1 L at this time and reevaluate in the morning prior to infusing additional fluids. (6) Underweight Is this a current diagnosis for this admission?: Yes Plan: Evidenced by cachexia, minimal subcutaneous fat, and poor muscle mass. We will ask the registered dietitian to evaluate and make recommendations. (7) Impaired circulation of left lower extremity Is this a current diagnosis for this admission?: Yes Plan: The patient is noted to have bilateral lower extremity edema; +1 on the right, + 2 on left. Upon taking the patient's socks off to examine further, I found that her left foot to her ankle was dusky, cold to touch, with a sluggish cap refill > 4-5 sec. I was unable to palpate pedal or posterior tibial pulses on the left extremity. Pulses are +1 to the right. The patient denies numbness and pain. Will evaluate with duplex ultrasound. (8) History of renal transplant Is this a current diagnosis for this admission?: Yes Plan: The patient reports renal transplant in the 1960s. Patient and family believe that she is on daily Bactrim and prednisone for antirejection. Unfortunately, they do not have the medication list or her pill bottles with her. I have asked the family to try to obtain this information as soon as possible. - Time Time Spent: Greater than 70 Minutes Medications reviewed and adjusted accordingly: No - Medication list/bottles were not available - Inpatient Certification Based on my medical assessment, after consideration of the patient's comorbidities, presenting symptoms, or acuity I expect that the services needed warrant INPATIENT care.: Yes I certify that my determination is in accordance with my understanding of Medicare's requirements for reasonable and necessary INPATIENT services [42 CFR 412.3e].: Yes Medical Necessity: Need Close Monitoring Due to Risk of Patient Decompensation, Need For IV Fluids, Need For Continuous Telemetry Monitoring
[2018-01-15] MEDS: DILTIAZEM HCL 30 MG TABLET PO SCH (18:40)
[2018-01-15] MEDS: HEPARIN SOD (PORCINE) 5,000 UNIT/ML 1 ML SYRINGE SUBCUT SCH (23:17)
--- NOTE | 2018-01-15 23:25 | EKG REPORT ---
SEVERITY:- ABNORMAL ECG - ATRIAL FIBRILLATION, V-RATE 77-167 NONSPECIFIC T ABNORMALITIES, DIFFUSE LEADS : Confirmed by: Bruce Hodge MD 15-Jan-2018 23:23:49
[2018-01-16] MEDS: DILTIAZEM HCL 30 MG TABLET PO SCH ×2 (01:19→06:33)
[2018-01-16 05:08] LABS: ABSOLUTE EOSINOPHILS # (AUTO) 0.1 10^3/uL (0.0-0.6); ABSOLUTE LYMPHOCYTES (AUTO) 1.1 10^3/uL (0.5-4.7); ABSOLUTE MONOCYTES (AUTO) 0.4 10^3/uL (0.1-1.4); ABSOLUTE NEUT (AUTO) 2.8 10^3/uL (1.7-8.2); BASOPHILS % (AUTO) 0.5 % (0-2); EOSINOPHILS % (AUTO) 1.2 % (0-6); HEMATOCRIT 35.3 % (36.0-47.0); HEMOGLOBIN 11.8 g/dL (12.0-15.5); LYMPHOCYTES % (AUTO) 24.5 % (13-45); MEAN CORPUSCULAR HEMOGLOBIN 34.6 pg (27.0-33.4); MEAN CORPUSCULAR HGB CONC 33.3 g/dL (32.0-36.0); MEAN CORPUSCULAR VOLUME 104 fl (80-97); MONOCYTES % (AUTO) 8.4 % (3-13); PLATELET COUNT 111 10^3/uL (150-450); RED CELL DISTRIBUTION WIDTH 16.1 % (11.5-14.0); SEGMENTED NEUTROPHILS % (AUTO) 65.4 % (42-78); TOTAL CELLS COUNTED % (AUTO) 100 %; WHITE BLOOD COUNT 4.3 10^3/uL (4.0-10.5)
[2018-01-16 05:35] LABS: ANION GAP 9 (5-19); BLOOD UREA NITROGEN 31 mg/dL (7-20); CARBON DIOXIDE 28 mmol/L (22-30); CHLORIDE 108 mmol/L (98-107); GLUCOSE 93 mg/dL (75-110); POTASSIUM 4.2 mmol/L (3.6-5.0); SODIUM 144.8 mmol/L (137-145)
[2018-01-16 05:38] LABS: NT PRO BNP 6510 pg/mL (<450)
[2018-01-16 05:43] LABS: TROPONIN I < 0.012 ng/mL
[2018-01-16] MEDS: HEPARIN SOD (PORCINE) 5,000 UNIT/ML 1 ML SYRINGE SUBCUT SCH ×3 (06:34→21:33)
[2018-01-16] MEDS ORDERED: NORMAL SALINE 1000 ML 1,000 ML IV PRN (08:23)
[2018-01-16] MEDS: METOPROLOL TARTRATE 25 MG TABLET PO SCH ×2 (09:22→21:33)
[2018-01-16] MEDS: ASPIRIN 81 MG TABLET, CHEWABLE PO SCH (09:24)
[2018-01-16] MEDS: FAMOTIDINE 20 MG TABLET PO SCH ×2 (09:25→21:33)
[2018-01-16] MEDS: MINERAL OIL/PETROLATUM,WHITE CREAM 114 GM TP SCH (10:39)
--- NOTE | 2018-01-16 13:20 | RADIOLOGY REPORT (SQ) ---
EXAM DESCRIPTION: VENOUS UNILATERAL LOWER COMPLETED DATE/TIME: 01/16/2018 1:00 pm REASON FOR STUDY: LLE edema, erythema, pain COMPARISON: None. TECHNIQUE: Dynamic and static vences scale and color images acquired of the left leg venous system. Se lected spectral images acquired with additional compression and augmentation maneuvers. The contralat eral common femoral vein and saphenofemoral junction were also imaged. Images stored on PACS. LIMITATIONS: None. FINDINGS: COMMON FEMORAL: Normal phasicity, compression and augmentation. No visualized echogenic ma terial on vences scale. No defects on color images. FEMORAL: Normal compression and augmentation. No visualized echogenic material on vences scale. No defe cts on color images. POPLITEAL: Normal compression, augmentation. No visualized echogenic material on vences scale. No defec ts on color images. CALF VESSELS: Normal compression, augmentation. No visualized echogenic material on vences scale. No de fects on color images. GSV and SSV: Thrombus in the greater saphenous vein extending to the saphenous femoral junction. ANY DEEP VENOUS INSUFFICIENCY: Not evaluated. ANY EVIDENCE OF POPLITEAL CYST: No. OTHER: No other significant finding. CONTRALATERAL COMMON FEMORAL VEIN AND SAPHENOFEMORAL JUNCTION: Normal phasicity, compression and augmentation. No visualized echogenic material on vences scale. No de fects on color images. IMPRESSION: Thrombosis greater saphenous vein. No evidence of deep vein thrombosis. TECHNICAL DOCUMENTATION: JOB ID: [id number] [employer]- All Rights Reserved Reading location - IP/workstation name: [email or web address]
[2018-01-16] MEDS ORDERED: ACETAMINOPHEN 325 MG TABLET PO PRN (13:47)
--- NOTE | 2018-01-16 13:57 | PDOC PROGRESS REPORT ---
Subjective Progress Note for:: 01/16/18 Subjective:: The patient is an 87-year-old female with limited past medical history ( secondary to poor historian) but known to have a kidney transplant in the 1960s , prior CT (unknown if she has cardiac stents), possible CVA (family members disagree with regard to this), probable CHF, atrial fibrillation (on Plavix and aspirin), Gonzalez's palsy, an intention tremor, and obvious dementia who was admitted 01/15/18 for generalized weakness, atrial fibrillation with RVR, and dehydration. The patient is seen on morning rounds. She is found sleeping when I enter the room but wakes easily when I say her name. She says that she is feeling well today and denies chest pain, palpitations, dyspnea, orthopnea, abdominal pain, nausea vomiting and diarrhea. She has not yet been out of bed and so does not know if she is feeling stronger today. She is very hard of hearing, difficult to understand, and forgetful. She has no questions or concerns today. Unfortunately, there are no family members present at this time. 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 ABSENT: scleral icterus Ear exam: PRESENT: normal external ear exam Mouth exam: PRESENT: moist, tongue midline Neck exam: ABSENT: carotid bruit, JVD, lymphadenopathy, thyromegaly Respiratory exam: PRESENT: clear to auscultation funmi, symmetrical, unlabored. ABSENT: rales, rhonchi, wheezes Cardiovascular exam: PRESENT: irregular rhythm, +S1, +S2. ABSENT: diastolic murmur, rubs, systolic murmur Pulses: PRESENT: other - +1 pedal pulse to right foot, left foot pedal pulse identified with Doppler Vascular exam: PRESENT: normal capillary refill GI/Abdominal exam: PRESENT: normal bowel sounds, soft. ABSENT: distended, guarding, mass, organolmegaly, rebound, tenderness Rectal exam: PRESENT: deferred Extremities exam: PRESENT: full ROM. ABSENT: calf tenderness, clubbing, pedal edema Neurological exam: PRESENT: alert, awake, oriented to person, oriented to place , oriented to time, oriented to situation, CN II-XII grossly intact, other - Forgetful, easily confused. ABSENT: motor sensory deficit Psychiatric exam: PRESENT: appropriate affect, normal mood. ABSENT: homicidal ideation, suicidal ideation Skin exam: PRESENT: dry, intact, warm, other - Skin tenting present but improved , erythema to left foot which is hot and tender to touch. Skin crusts to bilateral upper and lower extremities. ABSENT: cyanosis, rash Results Laboratory Results: 01/16/18 04:29 01/16/18 04:29 01/16/18 01/16/18 04:29 04:29 WBC 4.3 RBC 3.40 L Hgb 11.8 L Hct 35.3 L MCV 104 H MCH 34.6 H MCHC 33.3 RDW 16.1 H Plt Count 111 L Seg Neutrophils % 65.4 Lymphocytes % 24.5 Monocytes % 8.4 Eosinophils % 1.2 Basophils % 0.5 Absolute Neutrophils 2.8 Absolute Lymphocytes 1.1 Absolute Monocytes 0.4 Absolute Eosinophils 0.1 Absolute Basophils 0.0 Sodium 144.8 Potassium 4.2 Chloride 108 H Carbon Dioxide 28 Anion Gap 9 BUN 31 H Creatinine 0.51 L Est GFR ( Amer) > 60 Est GFR (Non-Af Amer) > 60 Glucose 93 Calcium 9.0 Magnesium 2.6 H 01/15/18 01/16/18 01/16/18 21:11 04:29 10:49 Troponin I < 0.012 < 0.012 < 0.012 NT-Pro-B Natriuret Pep 6510 H Impressions: Chest X-Ray 01/15/18 14:05 IMPRESSION: Cardiomegaly. Chronic bibasilar pleuroparenchymal changes. Venous Doppler Study 01/16/18 00:00 IMPRESSION: Thrombosis greater saphenous vein. No evidence of deep vein thrombosis. Assessment & Plan - Diagnosis (1) Atrial fibrillation with rapid ventricular response Is this a current diagnosis for this admission?: Yes Plan: The patient presented with complaint of generalized weakness and was found to be in atrial fibrillation with a rapid ventricular response. She is rhythm unaware. EKG demonstrates atrial fibrillation with a ventricular rate of 77-167, nonspecific T-wave abnormalities to diffuse leads. BMP unremarkable. TSH panel normal. Chest x-ray demonstrates cardiomegaly. Troponins are negative 4. The patient is admitted to [facility] on continuous cardiac telemetry. She is provided supplemental oxygen as needed to maintain oxygen saturations greater than 90%. Cardiology has been consulted; appreciate their evaluation recommendations. Currently on daily aspirin and Plavix therapy. Remaining plan and medication adjustments per cardiology. (2) Polymorphic ventricular tachycardia Is this a current diagnosis for this admission?: Yes Plan: No further episodes. While in the emergency department on cardiac telemetry the patient was noted to have a brief episode of polymorphic ventricular tachycardia consistent with torsades to point the resolved spontaneously. The patient was rhythm aware and did not experience chest pain, palpitations, shortness of breath, dizziness, or worsening weakness during the episode. EKG demonstrates atrial fibrillation with a rapid ventricular rate. BMP and magnesium are unremarkable. Troponins are negative 4 ED has provided the patient with 2 g IV magnesium. Cardiology has been consulted; appreciate their evaluation recommendations. Medication adjustments per cardiology. (3) Generalized weakness Is this a current diagnosis for this admission?: Yes Plan: The patient presented to the emergency department with a complaint of 1 day of generalized weakness. This is likely multifactorial secondary to atrial fibrillation with rapid ventricular response, dehydration, poor nutrition, and admitted noncompliance with cardiac medications. She will be admitted to [facility] on continuous cardiac telemetry. We will address atrial fibrillation and CHF; cardiology has been consulted. Echocardiogram pending. Remaining plan per Dr. Prescott. The patient appears to be severely volume depleted. Will provide gentle IV fluid rehydration. ST/PT/OT are consulted. interstate planner is consulted. (4) CHF (congestive heart failure) Qualifiers: Heart failure type: unspecified Is this a current diagnosis for this admission?: Yes Plan: The patient and family are unaware of diagnosis of CHF. Cardiomegaly by chest x-ray. proBNP trending down to 6K today. Troponins negative. Echocardiogram pending. The patient tolerated 1 L of IV fluids well; clear lung sounds bilaterally due to evidence of dehydration (poor skin turgor, elevated BUN). Will provide an additional 1 L of IV fluids at 50/h. I did discuss with nursing concern for potential fluid volume overload, they will watch closely for signs and symptoms. We will repeat proBNP with a.m. labs. She is placed on a cardiac diet. Strict I's and O's and daily weights. Holding home dose furosemide. Cardiology has been consulted; appreciate their evaluation recommendations. (5) Dehydration Is this a current diagnosis for this admission?: Yes Plan: Improving. Dehydration evidenced by hypotension (Blood pressure is 96/60), tachycardia, elevated BUN, skin tenting, poor capillary refill, dry mucous membranes. Although the patient's BNP is elevated there is no indication of fluid volume overload. Holding furosemide. The patient has received 1 L of normal saline; tolerated well. We will continue to provide gentle IV fluid hydration with normal saline at 50/ h 1 L. Observe closely for evidence of fluid volume overload. Reassess in the morning for need of additional IV fluids. (6) Underweight Is this a current diagnosis for this admission?: Yes Plan: Evidenced by cachexia, minimal subcutaneous fat, and poor muscle mass. We will ask the registered dietitian to evaluate and make recommendations. (7) History of renal transplant Is this a current diagnosis for this admission?: Yes Plan: The patient reports renal transplant in the 1960s. Potassium is normal, creatinine is stable, BUN trending down. We will resume the patient's home medications; Imuran, daily prednisone, and bactrim for UTI prophylaxis. (8) Impaired circulation of left lower extremity Is this a current diagnosis for this admission?: Yes Plan: Improved; today the left foot is edematous +2 nonpitting, erythematous, hot and and tender to touch. Pedal and posterior tibial pulses were confirmed with handheld Doppler. Yesterday, the left foot was found to be edematous +2, dusky , cool to touch, with delayed capillary refill (45 seconds) and nonpalpable pulses. Doppler revealed thrombus in the greater saphenous vein extending to the saphenous femoral junction. Tylenol as needed for pain. LEEANN hose as tolerated. Early ambulation; PT/OT ordered. Elevate extremities as able when not ambulatory. With extension to the femoral junction, anticoagulation is considered. However , I had previously discussed chronic anticoagulant therapy with Dr. Byrd given the patient's history of atrial fibrillation with CT and possible CVA. He advised against chronic anticoagulation due to bleeding risk. (9) Acute superficial venous thrombosis of left lower extremity Is this a current diagnosis for this admission?: Yes Plan: As above. - Time Time Spent with patient: 25-34 minutes
[2018-01-16] MEDS: ATORVASTATIN CALCIUM 40 MG TABLET PO SCH (21:34)
--- NOTE | 2018-01-16 23:05 | CONSULTATION REPORT E ---
Consultation Report NAME: YAHIR MERAZ : 1930 AGE: 87Y DATE: 01/16/2018 ROOM: 321 B TO: SABAS JAEGER M.D. FROM: Rolando HANNA, Requesting Physician REASON FOR CONSULTATION: The patient reported to have ventricular tachycardia/torsades, and also atrial fibrillation with slightly fast ventricular response. TIME SPENT: Note that the patient was seen at around 3:30 this afternoon. A total of 60 minutes was spent on this patient with more than 50% of the time spent on direct patient care. INFORMANT: Note the patient is not a very good historian, as well as the daughter is not a very good historian but history obtained from the patient and the patient's daughter. HISTORY OF PRESENT ILLNESS: The patient is an 87-year-old female who appears to be chronically ill. Admitted with nonspecific complaints of generalized fatigue and weakness. There are no complaints of chest pain or palpitations or PND or orthopnea or cough or sputum production or shortness of breath. The patient in the ER was found to be in atrial fibrillation with a ventricular response in the 115 range and also an EKG strip in the emergency room was interpreted as ventricular tachycardia/ torsades and the patient was given magnesium. Note that the review of the rhythm strip by me shows that this is artifact and not any ventricular arrhythmia. Of course she does have atrial fibrillation with a ventricular response in the 115 beats per minute range. She does have a history of chronic leg edema, which is intermittent, at present she has some discomfort in the left thigh region and also a little more swelling of the left lower extremity. There is no recurrence of TIA or CVA. There are no anginal symptoms. There is no syncope. PAST MEDICAL HISTORY: Positive for a history of hypertension. She also has a history of atrial fibrillation, at least present since the last 2 years. Looking at her medicines she has not been on any SA or AV salma block agents. At the time when Coumadin was broached with the patient and the patient's daughter they had refused since the patient already had some superficial skin abrasions and they did not want the patient to be on Coumadin. She has had a history of Gonzalez's palsy many years ago but no history of CVA. But 2 years ago the patient was admitted to a [id number] where she was treated for pneumonia and was also told that the patient had a myocardial infarction. Since the patient has a renal transplant they did not do a catheterization and treated her medically with aspirin and Plavix and nitrates. Although she is on isosorbide dinitrate 40 mg once a day. She has a history of hypertension which is well-controlled on Norvasc 2.5 mg p.o. daily. She has a history of renal transplant in 1959 and is on chronic therapy with prednisone and also Bactrim to prevent rejection. There have been no rejections. There is no definite history of congestive heart failure, although she has intermittent leg swelling. There is no history of seizures. There is no history of diabetes mellitus. There is no history of asthma or COPD. There is no history of sleep apnea. SOCIAL HISTORY: The patient does not smoke. ALLERGIES: The patient is allergic to MORPHINE and PHENOBARBITAL. PAST SURGICAL HISTORY: History of renal transplantation. No other surgeries done. FAMILY HISTORY: Positive for aneurysms in the lower extremity arteries and also coronary artery disease and hypertension. Apart from the aneurysm and the hypertension and coronary artery disease, there is no history of CVA in the family. ADVANCE DIRECTIVES: The patient is a full code. Her daughter is the surrogate healthcare decision maker. Her name is Kathie Lim. MEDICATIONS: 1. Tylenol 650 mg p.o. q.4 hours p.r.n. 2. Aspirin 81 mg p.o. daily. 3. Atorvastatin 40 mg at bedtime. 4. Imuran 50 mg p.o. Tuesday, Tuesday, Tuesday. 5. Imuran 25 mg p.o. Tuesday, Tuesday, , and Tuesday. 6. Heparin 5000 units *------*. 7. Pepcid 20 mg a day q.12 hours. 8. She was on Cardizem 30 mg p.o. q.6 hours. 9. Prednisone 2 mg p.o. daily. 10. Bactrim a half a tablet p.o. daily. REVIEW OF SYSTEMS: CONSTITUTIONAL: Complains of generalized fatigue and weakness, but no history of fever, chills, or rigors. HEAD: Denies any headaches or head injury. EYES: No history of amblyopia or diplopia. No history of amaurosis fugax. EARS: The patient does have difficulty in hearing, she is hard of hearing in both ears but can hear if you talk to her loudly. There is no tinnitus. There are no recurrent ear infections. NOSE: There are no nosebleeds. There is no hay fever. There are no nasal polyps. MOUTH: The patient complains of dry mouth. There are no ulcers in the mouth. There is no bleeding from the gums. THROAT: There is no odynophagia or dysphagia. There are no recurrent sore throats. SKIN: There are some superficial skin abrasions, but no petechiae. There is no psoriasis or yellowish discoloration of the skin. No history of pruritus. She does have a dry skin as per history. NECK: No painful or painless enlargement or swelling in the neck. No neck pain. LUNGS: No history of asthma or COPD. No history of wheezing. No history of cough or sputum production. No history of pulmonary embolism. No history of hemoptysis. No history of pleuritic chest pain. No history of sleep apnea. No history of asthma. No history of sleep apnea. CARDIAC: History of hypertension present. History of chronic atrial fibrillation. History of myocardial infarction in the past, treated medically although she does not appear to be on full treatment for coronary artery disease. No anginal symptoms. No history of congestive heart failure. History of leg swelling off and on. As per the patient and the patient's daughter there is a family history of peripheral vascular disease and on the physical examination the patient does have peripheral vascular disease, but she does not have claudication but the patient does not ambulate much. There is no history of syncope. There is no history of PND, orthopnea. Denies any palpitations. GASTROINTESTINAL: No history of peptic ulcer disease. No history of GI bleed. No history of fatty food intolerance. No history of altered bowel movements. No history of hematochezia, melena, or hematemesis. No abdominal pain. No history of cirrhosis. MUSCULOSKELETAL: Denies any arthritis or collagen vascular disease. RENAL: History of renal transplant. Kidney function seems to be normal. There are no symptom of UTI. No history of hematuria, pyuria, or dysuria. METABOLIC: Denies hyperlipidemia or gout. 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 No history of ischemia CVAs per the patient and the family. No history of seizures. No history of headaches, migraines. 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 She has not fallen often, although she does appear to have the propensity to fall. PSYCHIATRIC: No history of anxiety or depression. No suicidal ideation. VASCULAR: Physical exam suggests that the patient has peripheral vascular disease, although asymptomatic, although there is intermittent leg swelling and there is no definite history of DVT in the past, but at present the patient will be getting a DVT done as well as arterial Doppler, the results of which are awaited. HEMATOLOGICAL: The patient has no clotting disorders or bleeding diathesis, but the patient is not a very good candidate for anticoagulation chronically since the patient is very debilitated, chronically ill-looking, very frail, and hence has a high risk of bleeding complications. ENDOCRINE: No history of diabetes mellitus. No history thyroid disease. No history of polydipsia or polyuria. No history of heat or cold intolerance. The rest of the review of systems suggest that the patient appears to be dehydrated. She has not been eating or drinking much in the past few days. She also appears to be chronically ill and debilitated and malnourished. PHYSICAL EXAMINATION: GENERAL: On examination, as mentioned earlier, the patient appears older than her stated age. She appears to be emaciated and debilitated and chronically ill. She is very frail. VITAL SIGNS: She is afebrile with a temperature of 97.4 degrees Fahrenheit, pulse is 115 beats per minute irregularly irregular, blood pressure is 114/79, respirations are 20 per minute, O2 saturations are 98% on 2 liters nasal cannula. HEENT: Head is atraumatic, normocephalic. Eyes: Pupils are equal, round and regular, reactive to light and accommodation. Extraocular movements are normal. Face; there is residual right facial droop due to a prior Gonzalez's palsy. Ears: Tympanic membranes are intact, external auditory canals are clear. Nose: There is no deviation of the nasal septum, there is no inflammation of the nasal mucous membranes. Mouth: Mucous membranes of the mouth are dry, tongue is dry, there is no ulcer, there is no bleeding from the gums. Throat: There is no redness of the oropharynx, there is no exudate. SKIN: The skin appears to be dry. There is no ecchymosis or petechiae, although there are some real superficial abrasions. NECK: Supple. There is no JVD. There is no lymphadenopathy. There is no goiter. Carotids are equal. There is no bruit. There is no neck stiffness. LUNGS: Clear to auscultation and percussion. HEART: S1, S2 is heard. S1 is of variable intensity. There is no S3 gallop. There is no S4 gallop. There is a systolic murmur in the left sternal border and the apex. There is no rub. ABDOMEN: Soft, nontender. There is no hepatosplenomegaly. Bowel sounds are well heard. There are no tender areas or masses. EXTREMITIES: Femorals are very much diminished. There are no femoral bruits. Unable to palpate the left leg pulses, the right is very much diminished. There is 1- edema of the right lower extremity and 1+ edema on the left lower extremity. There is diminished capillary refill in both lower extremities. There is chronic venous stasis dermatitis changes in both lower extremities. There is no evidence of cellulitis. There is no clubbing. There is no cyanosis. There is no calf tenderness. CENTRAL NERVOUS SYSTEM: The patient is conscious, awake, alert. Seems to be oriented x3 with no focal deficits. PSYCHIATRIC: The patient's judgment and insight are intact, although slightly slow. This may be age related but the patient does not appear to be anxious or agitated. DIAGNOSTICS: The patient's chest x-ray shows chronic bibasilar pleural parenchyma changes and cardiomegaly. The patient's EKG shows atrial fibrillation, nonspecific *------* diffuse leads. The patient's white count is 4300, hemoglobin is 11.8, hematocrit is 35.8, MCV is elevated at 104, and the platelet count is 111,000. The patient's sodium is 144, potassium 4.2, chloride 108, CO2 is 28, chloride is 108. The patient's BUN is 31, creatinine 0.51, GFR is greater than 60, glucose is 93, calcium is 9.4. Her magnesium yesterday was 2.1, after she received 2 grams of magnesium sulfate in the emergency room intravenously her magnesium today is 2.6. Her NT-proBNP is 6510. Her troponin I is negative x3. The patient's TSH is 1.79, free T4 is 1.50, free T3 is 3.72. IMPRESSION: 1. Note, no evidence of ventricular tachycardia or torsades, this is artifact. The strips have been reviewed by me. She even had an episode this morning which showed clearly that this is artifact. The patient had no symptoms when she had this. 2. Atrial fibrillation with slightly fast ventricular response. Would recommend adding beta bernadette to the patient to slow down the patient's ventricular response. Note the patient is not a candidate for any chronic anticoagulation due to high risk of bleeding given the patient being frail, chronically ill, debilitated, and probably history of propensity to falls. Also the family does not want the patient to be on anticoagulation as they are aware of the risks of not being on anticoagulation including stroke, which could be massive. 3. Hypertension, which is well-controlled. 4. Coronary artery disease, history of NE. No anginal symptoms. Later once the blood pressure stabilizes we will place the patient on Imdur. Continue the patient on aspirin and Plavix since she has been on it chronically. 5. History of leg swelling. Needs venous Doppler to make sure that she does not have DVT or venous insufficiency causing leg swelling. Also needs an echocardiogram in view of the patient's systolic murmur, atrial fibrillation, and leg edema to make sure that the patient's left ventricular systolic function is preserved. 6. Peripheral vascular disease by exam. Although asymptomatic, would recommend getting a lower extremity arterial Doppler to assess the significance or extend of peripheral vascular disease if at all present. 7. History of renal transplant. The patient on anti-rejection therapy including Imuran, prednisone, and also the patient's on Bactrim. 8. Dehydration. Continue IV fluids. RECOMMENDATIONS: The case discussed with the patient and patient's daughter. Her medications have been reviewed. Discussed the case with the hospitalist. Would not treat the patient as having ventricular tachycardia. Await echo. Her medications have been reviewed and medications have been adjusted and new medications added. Her EKG and chest x-ray have been reviewed by me personally. At least 55 minutes spent on the patient with more than 50% of the time spent on direct patient care. Note medical decision making is of high complexity in view of the multiple medical problems. We will follow with you. Discussed with the hospitalist. DICTATING PHYSICIAN: SABAS JAEGER M.D. [id number] PHY#: [id number] ID: [id number] JOB#: [id number] ACCT: [id number] cc:SABAS JAEGER M.D. >
[2018-01-17] MEDS ORDERED: METOPROLOL TARTRATE 25 MG TABLET PO ONE (00:30)
[2018-01-17 05:25] LABS: HEMATOCRIT 36.6 % (36.0-47.0); HEMOGLOBIN 12.3 g/dL (12.0-15.5); MEAN CORPUSCULAR HEMOGLOBIN 34.6 pg (27.0-33.4); MEAN CORPUSCULAR HGB CONC 33.7 g/dL (32.0-36.0); MEAN CORPUSCULAR VOLUME 103 fl (80-97); PLATELET COUNT 135 10^3/uL (150-450); RED BLOOD COUNT 3.56 10^6/uL (3.72-5.28); RED CELL DISTRIBUTION WIDTH 16.4 % (11.5-14.0); WHITE BLOOD COUNT 5.3 10^3/uL (4.0-10.5)
[2018-01-17 05:50] LABS: ANION GAP 10 (5-19); BLOOD UREA NITROGEN 23 mg/dL (7-20); CALCIUM 9.1 mg/dL (8.4-10.2); CARBON DIOXIDE 25 mmol/L (22-30); CHLORIDE 109 mmol/L (98-107); GLUCOSE 132 mg/dL (75-110); POTASSIUM 4.3 mmol/L (3.6-5.0); SODIUM 143.5 mmol/L (137-145)
[2018-01-17] MEDS: HEPARIN SOD (PORCINE) 5,000 UNIT/ML 1 ML SYRINGE SUBCUT SCH ×3 (05:59→22:57)
[2018-01-17] MEDS: METOPROLOL TARTRATE 25 MG TABLET PO SCH ×2 (09:52→22:54)
[2018-01-17] MEDS: SULFAMETHOXAZOLE/TRIMETHOPRIM 800-160 MG TABLET PO SCH (09:53)
[2018-01-17] MEDS: ASPIRIN 81 MG TABLET, CHEWABLE PO SCH (09:53)
[2018-01-17] MEDS: FAMOTIDINE 20 MG TABLET PO SCH ×2 (09:54→22:57)
[2018-01-17] MEDS: PREDNISONE 1 MG TABLET PO SCH (09:55)
[2018-01-17] MEDS: MINERAL OIL/PETROLATUM,WHITE CREAM 114 GM TP SCH (09:59)
[2018-01-17] MEDS ORDERED: (PENDING PHARMACY ID) (Sulfamethoxazole/Trimethoprim [Bactrim 400-80 Mg Tablet] 1 EACH) PO SCH (10:00)
[2018-01-17] MEDS ORDERED: AZATHIOPRINE 50 MG TABLET PO SCH (10:00)
--- NOTE | 2018-01-17 14:27 | XCELERA REPORT ---
[address] [address] Lower Extremity Arterial Evaluation Name: YAHIR MERAZ Age: 87 yrs Gender: Female : 1930 Patient Status: Inpatient Patient Location: [address] [place] [address] Study Date: 01/17/2018 11:00 AM Procedure: A color flow and duplex scan of the lower extremity arteries was performed bilaterally with velocity and waveform anaylsis. Ankle brachial indicies performed. 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 Biphasic in the Popliteal and to the infrageniculate vessels. lower velocities in the Popliteal and Posterior tibial. Occluded distal Posterior Tibial artery. 0-19 % stenosis . At the Femoral, Sequential disease. Ankle Brachial index is 1.13. In the Dorsalis Pedis, Occluded Posterior Tibial. Left Side Arterial Evaluation Normal velocity and triphasic waveforms noted in the Common Femoral artery. Biphasic in the Popliteal and to the infrageniculate vessels. lower velocities in the Anterior and Posterior tibial. Occluded distal Posterior Tibial artery. 0-19 % stenosis . At the Femoral, Ankle Brachial index is 1.22. Interpretation Summary Moderate hemodynamically significant lesions in the bilateral lower extremities, on duplex imaging, at rest. A bit worse on the right. Vessels calcification noted throughout. : SABAS JAEGER > Jesse Iraheta
--- NOTE | 2018-01-17 14:45 | XCELERA REPORT ---
[address] [address] Transthoracic Echocardiogram Report Name: YAHIR MERAZ Age: 87 yrs Gender: Female : 1930 Patient Status: Inpatient Patient Location: [address] [place] [address] Study Date: 01/17/2018 10:14 AM Height: 60 in Weight: 115 lb BSA: 1.5 m2 Procedure: A two-dimensional transthoracic echocardiogram with color flow and Doppler was performed. The study was technically difficult with many images being suboptimal in quality. Reason For Study: CHF / ATRAIL FIBRILLATION History: CHF / ATRAIL FIBRILLATION. Ordering Physician: SABAS JAEGER Performed By: Hermelinda Thornton Interpretation Summary The left ventricle is normal in size. There is normal left ventricular wall thickness. LV EF is > than 55% Left ventricular systolic function is normal. LV diastolic function could not be adequately assessed due to atrial fibrilation. The left ventricular wall motion is normal. The right ventricle is not well visualized secondary to technical limitations The right atrium is normal. The left atrium is mildly dilated. There is no evidence of mitral valve prolapse. There is no vegetation seen on the mitral valve. There is no mitral valve stenosis. There is a moderate amount of mitral regurgitation The aortic valve is mildly calcified There is no aortic valve stenosis There is no LVOT obstruction. There is a mild amount of aortic regurgitation There is no tricuspid stenosis. There is a moderate amount of tricuspid regurgitation RVSP is 61 mm of Hg , with RA mean of 10. There is moderate pulmonary hypertension by echo There is a mild amount of pulmonic regurgitation There is no pulmonic valvular stenosis. There is no pericardial effusion. MMode/2D Measurements & Calculations RVDd: 3.2 cm LVIDd: 3.9 cm FS: 28.6 % Ao root diam: 2.6 cm IVSd: 1.0 cm LVIDs: 2.8 cm EDV(Teich): LVPWd: 0.95 cm 64.4 ml Ao root area: 5.3 cm2 ESV(Teich): LA dimension: 4.1 cm 28.4 ml EF(Teich): 55.8 % LA A2Cs: LA A4Cs: LA length: 5.3 cmLA Vol Index (BP): 22.3 cm2 21.7 cm2 53.1 ml/m2 LA Volume: 78.3 ml Doppler Measurements & Calculations MV E max driss: MV P1/2t max driss: Ao V2 max: AI max driss: 107.8 cm/sec 108.3 cm/sec 89.6 cm/sec 284.5 cm/sec MV A max driss: MV P1/2t: 50.9 msec Ao max PG: AI max P.0 cm/sec 3.2 mmHg 32.4 mmHg MV E/A: 2.4 MVA(P1/2t): 4.3 cm2 AI dec slope: MV dec slope: 622.4 cm/sec2 142.8 cm/sec2 MV dec time: AI P1/2t: 0.17 sec 583.6 msec LV V1 max PG: PA V2 max: PI end-d driss: TR max driss: 2.3 mmHg 44.7 cm/sec 160.2 cm/sec 354.3 cm/sec LV V1 max: PA max P.80 mmHg TR max P.6 cm/sec 50.2 mmHg Left Ventricle The left ventricle is normal in size. There is normal left ventricular wall thickness. LV EF is > than 55%. Left ventricular systolic function is normal. LV diastolic function could not be adequately assessed due to atrial fibrilation. The left ventricular wall motion is normal. There is no thrombus. Right Ventricle The right ventricle is not well visualized secondary to technical limitations. Atria The right atrium is normal. The left atrium is mildly dilated. Mitral Valve There is no evidence of mitral valve prolapse. There is no vegetation seen on the mitral valve. There is no mitral valve stenosis. There is a moderate amount of mitral regurgitation. Aortic Valve The aortic valve is mildly calcified. There is no aortic valvular vegetation. There is no aortic valve stenosis. There is no LVOT obstruction. There is a mild amount of aortic regurgitation. Tricuspid Valve There is no tricuspid stenosis. There is a moderate amount of tricuspid regurgitation. RVSP is 61 mm of Hg , with RA mean of 10. There is moderate pulmonary hypertension by echo. Pulmonic Valve There is no pulmonic valvular stenosis. There is a mild amount of pulmonic regurgitation. Great Vessels The aortic root is normal size. Effusions There is no pericardial effusion. : SABAS JAEGER > Sabas Jaeger
[2018-01-17] MEDS ORDERED: DIGOXIN INJ 0.5 MG/2 ML AMPULE IV ONE (15:30)
--- NOTE | 2018-01-17 15:40 | PROGRESS NOTE E ---
Progress Note NAME: YAHIR MERAZ : 1930 AGE: 87Y DATE: 01/17/2018 ROOM: 321 SUBJECTIVE: The patient denies any chest pain or discomfort. There is no PND or orthopnea or leg edema. There is no TIA or CVA symptoms. The patient denies any dizziness, syncope, or near syncope. She appears older than her stated age. She appears to be emaciated, debilitated, and chronically ill and malnourished. She is very frail. PHYSICAL EXAMINATION: VITAL SIGNS: She is afebrile with a temperature of 97.3 degrees Fahrenheit. Pulse is 103 beats per minute. Blood pressure is 106/78. Respirations are 20 per minute. O2 sats are 93% on 2 L nasal cannula. HEENT: Head is atraumatic, normocephalic. Eyes - Pupils are equal, round, regular, reactive to light and accommodation. Extraocular movements are normal. There is no conjunctival pallor. There is no scleral icterus. ENT is negative. NECK: Supple. There is no JVD. Carotids are equal. There is no bruit. There is no goiter. There is no lymphadenopathy. Trachea is central. LUNGS: Clear to auscultation and percussion. HEART: S1, S2 is heard. S1 is of variable intensity. There is no S3 gallop. There is no S4 gallop. There is a murmur of mitral regurgitation and tricuspid regurgitation present. There is no rub. ABDOMEN: Soft, nontender. There is no hepatosplenomegaly. Bowel sounds are well heard. There are no tender areas or masses felt. There is no rebound, guarding, or rigidity. EXTREMITIES: Femorals are diminished. There are no femoral bruits. Leg pulses: I cannot feel the right pedal pulses, but the left is weak. There is bilateral trace edema. There is chronic venous stasis and dermatitis changes. There is no cyanosis or clubbing. CENTRAL NERVOUS SYSTEM: The patient is conscious, awake, alert, oriented x3 with no focal deficits. 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 PSYCHIATRIC: The patient's judgement and insight are intact. Her affect is normal. DIAGNOSTICS: The patient's 24-hour intake is 2780 mL, output is 1055 mL. The patient's echocardiogram shows that the left ventricular size is normal. There is no LVH. There is no wall motion abnormality. LV ejection fraction is normal at greater than 55%. There is mild aortic regurgitation with aortic sclerosis without stenosis. There is mild aortic regurgitation. There is moderate tricuspid regurgitation with moderate pulmonary hypertension. Right ventricular systolic pressure is 61 mmHg. There is moderate mitral regurgitation. The patient's lower extremity arterial Doppler shows moderate hemodynamically significant lesions in her bilateral lower extremities on duplex imaging at rest, a bit worse on the right *------*; please see report. The patient's white count is 5300, hemoglobin is 12.3, hematocrit is 36.6, platelet count is 135,000. The patient's sodium is 143.5, potassium 4.3, chloride is 109, CO2 is 25. The patient's BUN is 23, creatinine 0.46, GFR is greater than 60. Glucose is 132, calcium is 9.1. NT-proBNP is down to 6280; this may be because of the patient's pulmonary hypertension. IMPRESSION AND PLAN: 1. Of note, there is no evidence of ventricular arrhythmia. Review of the monitor shows no ventricular ectopic activity of any type. 2. Atrial fibrillation with ventricular response in the 100s. Continue beta bernadette. I will add a small dose of IV digoxin x1 now. We will also place the patient on isosorbide mononitrate from tomorrow at 30 mg p.o. daily. Continue aspirin and Plavix. 3. Hypertension, well controlled. 4. Coronary artery disease. History of ND, most likely [id number] ND since no significant wall motion abnormality is seen on the echo. Patient has no anginal symptoms. Continue aspirin and Plavix. I will place the patient on Imdur from tomorrow. 5. History of leg swelling. The patient has right greater saphenous vein thrombosis which is superficial vein thrombosis. 6. Peripheral vascular disease by physical exam and by the patient's lower extremity Doppler. Patient is symptomatic. 7. History of renal transplant. Patient is on anti-rejection therapy, including Imuran, prednisone, and Bactrim. 8. Dehydration. I would recommend to continue with IV fluids but at a lesser rate. Of note, the echo findings with recommendation as mentioned earlier. We will do a small dose of digoxin IV now x1 and I will start the patient on Imdur, continue aspirin and Plavix and the patient's beta bernadette and Lasix. Continue anti-rejection medications due to renal transplant status. Of note, the patient is not a candidate for any form of chronic anticoagulation in view of the risks of bleeding. The echo findings have been discussed with the patient and the patient's daughter. 9. Pulmonary hypertension. 10. Moderate mitral regurgitation. 11. Moderate tricuspid regurgitation. NOTE: Medical decision making is of high complexity in view of the echo findings and need to adjust treatment. Her medications have been reviewed and medications added. Discussed with the hospitalist taking care of the patient. Note, 35 minutes were spent on the patient with more than 50% of the time spent on direct patient care. Will follow with you. DICTATING PHYSICIAN: SABAS JAEGER M.D. [id number] LISSETT#: [id number] ID: [id number] JOB#: [id number] ACCT: [id number] cc: >
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
[2018-01-17] MEDS: ATORVASTATIN CALCIUM 40 MG TABLET PO SCH (22:54)
[2018-01-18 05:26] LABS: HEMATOCRIT 35.8 % (36.0-47.0); MEAN CORPUSCULAR HEMOGLOBIN 34.3 pg (27.0-33.4); MEAN CORPUSCULAR HGB CONC 33.5 g/dL (32.0-36.0); MEAN CORPUSCULAR VOLUME 103 fl (80-97); PLATELET COUNT 135 10^3/uL (150-450); RED BLOOD COUNT 3.49 10^6/uL (3.72-5.28); RED CELL DISTRIBUTION WIDTH 16.2 % (11.5-14.0); WHITE BLOOD COUNT 4.6 10^3/uL (4.0-10.5)
[2018-01-18 05:48] LABS: ANION GAP 9 (5-19); BLOOD UREA NITROGEN 24 mg/dL (7-20); CALCIUM 9.3 mg/dL (8.4-10.2); CARBON DIOXIDE 27 mmol/L (22-30); CHLORIDE 107 mmol/L (98-107); GLUCOSE 102 mg/dL (75-110); PHOSPHORUS 3.6 mg/dL (2.5-4.5)
[2018-01-18] MEDS: HEPARIN SOD (PORCINE) 5,000 UNIT/ML 1 ML SYRINGE SUBCUT SCH ×2 (06:19→13:52)
[2018-01-18] MEDS: METOPROLOL TARTRATE 25 MG TABLET PO SCH (09:10)
[2018-01-18] MEDS: ASPIRIN 81 MG TABLET, CHEWABLE PO SCH (09:11)
[2018-01-18] MEDS: SULFAMETHOXAZOLE/TRIMETHOPRIM 800-160 MG TABLET PO SCH (09:12)
[2018-01-18] MEDS: FAMOTIDINE 20 MG TABLET PO SCH (09:12)
[2018-01-18] MEDS: PREDNISONE 1 MG TABLET PO SCH (09:16)
[2018-01-18] MEDS: MINERAL OIL/PETROLATUM,WHITE CREAM 114 GM TP SCH (09:21)
[2018-01-18] MEDS ORDERED: AZATHIOPRINE 50 MG TABLET PO SCH (10:00)
[2018-01-18] MEDS ORDERED: FERROUS SULFATE 325 MG TABLET PO SCH (10:00)
[2018-01-18] MEDS ORDERED: CLOPIDOGREL BISULFATE 75 MG TABLET PO SCH (10:00)
[2018-01-18] MEDS ORDERED: ISOSORBIDE MONONITRATE 30 MG TAB.ER.24H PO SCH (10:00)
--- NOTE | 2018-01-18 14:50 | PROGRESS NOTE E ---
Progress Note NAME: YAHIR MERAZ : 1930 AGE: 87Y DATE: 01/18/2018 ROOM: 321 SUBJECTIVE: Note, the patient denies any chest pain or chest discomfort. She is in atrial fibrillation with ventricular response in the 90s. She denies any chest pain or discomfort. There is no PND or orthopnea. There is only trace leg edema present, with chronic venous stasis changes. She continues to be in atrial fibrillation. There are no TIA or CVA symptoms. Note that the patient is not a candidate for chronic anticoagulation. She denies any TIA or CVA symptoms. Monitor reviews show that there are no ventricular arrhythmias seen. OBJECTIVE: GENERAL: On examination, the patient appears to be much older than her stated age. She is debilitated and appears to be chronically ill and malnourished. VITAL SIGNS: She is afebrile, with a temperature of 97.3 degrees Fahrenheit. Her pulse is 96 beats per minute, irregularly irregular. Blood pressure 106/77. Her respirations are 18 per minute. O2 sats are 96% on 2 liters nasal cannula. HEENT: Head is atraumatic, normocephalic. Eyes: Pupils are equal, round, regular and reactive to light and accommodation. Extraocular movements are normal. There is no conjunctival pallor. There is no scleral icterus. ENT is negative. NECK: Supple. There is no JVD. Carotids are equal. There is no bruit. There is no goiter. There is no lymphadenopathy. Trachea is central. LUNGS: Clear to auscultation and percussion. There is no chest wall tenderness. HEART: S1, S2 are heard. S1 is of variable intensity. There is no S3 gallop, there is no S4 gallop. There is murmur of mitral regurgitation present, and a murmur of tricuspid regurgitation also present. There is no rub. ABDOMEN: Soft, nontender. There is no hepatosplenomegaly. Bowel sounds are well-heard. There are no tender areas or masses felt. There is no rebound, guarding or rigidity. EXTREMITIES: Femorals are diminished. There are no femoral bruits. Leg pulses on the left side are weak. On the right side, I cannot feel the pedal pulses. There is bilateral trace edema. There are chronic venous stasis dermatitis changes. There is no cyanosis or clubbing. CENTRAL NERVOUS SYSTEM: The patient is conscious, awake, alert, oriented x3, with no focal deficit. 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 The patient moves all 4 extremities. PSYCHIATRIC: The patient's judgment and insight are intact. Her affect is normal. LABORATORY DATA: The patient's white count is 4600, hemoglobin is 12, hematocrit is 35.8, platelet count is 135,000. The patient's sodium is 143.0, potassium is 5.0, chloride 107, CO2 of 27. The patient's BUN is 24, creatinine 0.48. GFR is greater than 60. Her glucose is 102. Calcium is 9.3, phosphorus 3.6, magnesium is 2.1. IMPRESSION: 1. THERE IS NO EVIDENCE OF VENTRICULAR ARRHYTHMIA AT ANY TIME. Monitor has been reviewed fully. 2. ATRIAL FIBRILLATION WITH VENTRICULAR RESPONSE, NOW MUCH IMPROVED. Continue the patient on Lopressor twice a day. 3. HYPERTENSION, WELL-CONTROLLED. 4. CORONARY ARTERY DISEASE. HISTORY OF MYOCARDIAL INFARCTION. No anginal symptoms. Continue beta blockers. Note, patient has been started on Imdur 30 mg p.o. daily. 5. HISTORY OF LEG SWELLING. Patient has right greater saphenous vein thrombosis, which is superficial vein thrombosis. This is being treated. The patient has no pain in her extremities, on the right side, especially. 6. PERIPHERAL VASCULAR DISEASE, ASYMPTOMATIC. 7. HISTORY OF RENAL TRANSPLANT. Patient is on anti-rejection therapy, including Imuran, prednisone and Bactrim. Would recommend continuing the same. 8. DEHYDRATION. The patient has been rehydrated. 9. PULMONARY HYPERTENSION. 10. MODERATE MITRAL REGURGITATION. 11. MODERATE TRICUSPID REGURGITATION. RECOMMENDATIONS: The patient appears to be stable cardiac-mora. She is not a candidate for chronic anticoagulation therapy for reasons mentioned earlier. Also, the patient is not a candidate for any aggressive treatment. Would recommend continuing medical treatment. The patient and the family desire to follow up with me. Will give the patient an appointment. Her medications have been reviewed. Medical decision-making at present is of moderate complexity. Note, 35 minutes spent on the patient, with more than 50% of the time spent on direct patient care. Her medications have been reviewed, and her plan of care has been discussed with the hospitalist taking care of the patient. Will follow the patient in the office. Will sign off. Thank you. DICTATING PHYSICIAN: SABAS JAEGER M.D. [id number] PHY#: [id number] ID: [id number] JOB#: [id number] ACCT: [id number] cc: >
[2018-01-18 18:38] VITALS: BP 116/83
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
== END 2018-01-18 16:00 | disposition home health service (06) | DRG 309 ==
LOC: ER 13:56 → EH 16:29 → 3W 18:22
PROVIDERS: ADMIT Internal Medicine; ATTEND Internal Medicine
DX: I48.91 Unspecified atrial fibrillation (principal); I82.812 Embolism and thrombosis of superficial veins of left lower extremity; Z94.0 Kidney transplant status; T74.01XA Adult neglect or abandonment, confirmed, initial encounter; I50.9 Heart failure, unspecified; I47.2 Ventricular tachycardia; I11.0 Hypertensive heart disease with heart failure; I27.20 Pulmonary hypertension, unspecified; I08.1 Rheumatic disorders of both mitral and tricuspid valves; E86.0 Dehydration; I73.89 Other specified peripheral vascular diseases; R53.1 Weakness; R63.6 Underweight; G51.0 Bell's palsy; I25.2 Old myocardial infarction; Z79.01 Long term (current) use of anticoagulants; Z79.82 Long term (current) use of aspirin; Z68.23 Body mass index [BMI] 23.0-23.9, adult; Z86.73 Personal history of transient ischemic attack (TIA), and cerebral infarction without residual deficits
CPT/HCPCS: 36415; 71045; 80048; 80053; 81001; 82550; 83735; 83880; 84100; 84439; 84443; 84481; 84484; 85025; 85027; 93005; 93010; 93306; 93925; 93971; 96374; 96375; 96376; 99291; G8978-GP; G8979-GP; G8987-GO; G8988-GO; G8996-GN; G8997-GN; G8998-GN; J1160; J1644; J3475; J3490; J7030; J7500; J7512

== ENCOUNTER 2018-01-19 14:11 | Inpatient (IN) | payer MEDICARE ==
[2018-01-19 15:09] LABS: ABSOLUTE LYMPHOCYTES (AUTO) 0.6 10^3/uL (0.5-4.7); ABSOLUTE MONOCYTES (AUTO) 0.3 10^3/uL (0.1-1.4); ABSOLUTE NEUT (AUTO) 4.7 10^3/uL (1.7-8.2); BASOPHILS % (AUTO) 0.3 % (0-2); EOSINOPHILS % (AUTO) 0.1 % (0-6); HEMATOCRIT 34.7 % (36.0-47.0); HEMOGLOBIN 11.6 g/dL (12.0-15.5); LYMPHOCYTES % (AUTO) 10.8 % (13-45); MEAN CORPUSCULAR HEMOGLOBIN 34.3 pg (27.0-33.4); MEAN CORPUSCULAR HGB CONC 33.3 g/dL (32.0-36.0); MEAN CORPUSCULAR VOLUME 103 fl (80-97); MONOCYTES % (AUTO) 6.1 % (3-13); PLATELET COUNT 160 10^3/uL (150-450); RED BLOOD COUNT 3.37 10^6/uL (3.72-5.28); RED CELL DISTRIBUTION WIDTH 16.1 % (11.5-14.0); SEGMENTED NEUTROPHILS % (AUTO) 82.7 % (42-78); TOTAL CELLS COUNTED % (AUTO) 100 %; WHITE BLOOD COUNT 5.7 10^3/uL (4.0-10.5)
--- NOTE | 2018-01-19 15:13 | ER Document Report ---
ED General <DEREK SANCHEZ - Last Filed: 01/19/18 16:48> - General Mode of Arrival: Ambulatory Information source: Patient TRAVEL OUTSIDE OF THE [place] IN LAST 30 DAYS: No <ALYCIA GAFFNEY - Last Filed: 01/19/18 22:28> - General Chief Complaint: Shortness Of Breath Stated Complaint: DIFFICULTY BREATHING Time Seen by Provider: 01/19/18 14:29 Notes: Patient is an 87 year old female with CHF, chronic a-fib, COPD presents to the emergency department complaining of shortness of breath onset last night. Patient was admitted to the hospital on 01/15/2018 for generalized weakness and discharged on 01/18/2018. Daughter states the patient began to have shortness of breath last night which has progressively worsened today. Daughter also mentions the patient vomiting this afternoon which is abnormal to the patient. Patient is currently taking Prednisone (2mg daily), Plavix, Pepsid, Metoprolol, Imuran. Patient has an appointment with Dr. Tovar on 01/23/[address] Prescott on 01/26/2018. (ALYCIA GAFFNEY) - Related Data Allergies/Adverse Reactions: morphine Allergy (Verified 08/19/17 16:16) phenobarbital Allergy (Verified 08/19/17 16:16) Past Medical History - Social History Smoking Status: Never Smoker Chew tobacco use (# tins/day): No Drug Abuse: None Family History: CVA, Hypertension Patient has suicidal ideation: No Patient has homicidal ideation: No - Past Medical History Cardiac Medical History: Reports: Hx Atrial Fibrillation, Hx Congestive Heart Failure, Hx Heart Attack, Hx Hypercholesterolemia, Hx Hypertension Past Surgical History: Reports: Hx Kidney (Renal Surgery) - transplant in 1975. Denies: Hx Internal Defibrillator <ALYCIA GAFFNEY - Last Filed: 01/19/18 22:28> Physical Exam <DEREK SANCHEZ - Last Filed: 01/19/18 16:48> <ALYCIA GAFFNEY - Last Filed: 01/19/18 22:28> - Vital signs Vitals: Temp Pulse Resp BP Pulse Ox 97.7 F 118 H 22 H 117/70 90 L 01/19/18 14:55 01/19/18 14:55 01/19/18 14:55 01/19/18 14:55 01/19/18 14:55 - Notes Notes: GENERAL: Alert, interacts well. No acute distress. HEAD: Normocephalic, atraumatic. EYES: Pupils equal, round, and reactive to light. Extraocular movements intact. ENT: Oral mucosa moist, tongue midline. NECK: Full range of motion. Supple. Trachea midline. LUNGS: Coarse breath sounds. No respiratory distress. HEART: Irregularly irregular.No murmurs, gallops, or rubs. ABDOMEN: Soft, non-tender. Protuberant abdomen. Non-distended. Bowel sounds present in all 4 quadrants. EXTREMITIES: Moves all 4 extremities spontaneously. 1+ pitting edema.No cyanosis. NEUROLOGICAL: Alert and oriented x3. Normal speech. PSYCH: Normal affect, normal mood. SKIN: Warm, dry. Dry crusting of the BLE and BUE. (ALYCIA GAFFNEY) Course - Laboratory Result Diagrams: 01/19/18 14:47 01/19/18 14:47 - Diagnostic Test Radiology reviewed: Image reviewed, Reports reviewed - Fluid overload or congestive failure with perihilar pulmonary edema moderate bilateral pleural effusions - EKG Interpretation by Ak EKG shows normal: [place], Intervals, QRS Complexes, ST-T Waves Rate: Tachycardia Rhythm: A.Fib, A.Flutter [place]/QRS: Right axis deviation - Consults Dr. Gomez Time consulted: 16:45 Consulted provider: will come to ER <DEREK SANCHEZ - Last Filed: 01/19/18 16:48> - Laboratory Result Diagrams: 01/19/18 14:47 01/19/18 14:47 <ALYCIA GAFFNEY - Last Filed: 01/19/18 22:28> - Vital Signs Vital signs: Temp Pulse Resp BP Pulse Ox 97.7 F 118 H 22 H 117/70 87 L 01/19/18 14:55 01/19/18 14:55 01/19/18 14:55 01/19/18 14:55 01/19/18 14:56 - Laboratory Laboratory results interpreted by me: 01/19/18 01/19/18 01/19/18 14:47 14:47 14:47 RBC 3.37 L Hgb 11.6 L Hct 34.7 L MCV 103 H MCH 34.3 H RDW 16.1 H Seg Neutrophils % 82.7 H Lymphocytes % 10.8 L VBG pH BUN 26 H Creatinine 0.51 L Glucose 154 H Lactic Acid Creatine Kinase < 20 L NT-Pro-B Natriuret Pep 73927 H Total Protein 5.9 L Albumin 3.4 L Urine Ascorbic Acid 01/19/18 01/19/18 01/19/18 14:47 14:47 15:32 RBC Hgb Hct MCV MCH RDW Seg Neutrophils % Lymphocytes % VBG pH 7.47 H BUN Creatinine Glucose Lactic Acid 2.4 H Creatine Kinase NT-Pro-B Natriuret Pep Total Protein Albumin Urine Ascorbic Acid 40 H Critical Care Note - Critical Care Note Total time excluding time spent on procedures (mins): 35 <DEREK SANCHEZ - Last Filed: 01/19/18 16:48> Discharge - Discharge Admitting Provider: Hospitalist Unit Admitted: Telemetry <DEREK SANCHEZ - Last Filed: 01/19/18 16:48> <ALYCIA GAFFNEY - Last Filed: 01/19/18 22:28> - Discharge Clinical Impression: Atrial fibrillation with rapid ventricular response, Shortness of breath Congestive heart failure (CHF) Qualifiers: Heart failure type: diastolic Heart failure chronicity: acute on chronic Qualified Code(s): I50.33 - Acute on chronic diastolic (congestive) heart failure Condition: Stable Disposition: ADMITTED INPATIENT Scribe Attestation: 01/19/18 15:31 I personally performed the services described in the documentation, reviewed and edited the documentation which was dictated to the scribe in my presence, and it accurately records my words and actions. (DEREK SANCHEZ) Scribe Documentation - Scribe Written by Corona:: Corona Monge, 01/19/2018 15:29 acting as scribe for :: Alvin <ALYCIA GAFFNEY - Last Filed: 01/19/18 22:28>
--- NOTE | 2018-01-19 15:15 | RADIOLOGY REPORT (SQ) ---
EXAM DESCRIPTION: CHEST SINGLE VIEW COMPLETED DATE/TIME: 01/19/2018 3:06 pm REASON FOR STUDY: sob COMPARISON: Chest films 01/15/2018, 12/08/2017 EXAM PARAMETERS: NUMBER OF VIEWS: One view. TECHNIQUE: Single frontal radiographic view of the chest acquired. RADIATION DOSE: NA LIMITATIONS: None. FINDINGS: LUNGS AND PLEURA: Moderate bilateral pleural effusions are present. There is perihilar pu lmonary edema bilaterally. Bibasilar consolidation atelectasis versus pneumonia. No pneumothorax. MEDIASTINUM AND HILAR STRUCTURES: No masses. Contour normal. HEART AND VASCULAR STRUCTURES: Moderate cardiomegaly BONES: Osteoporotic. No gross fracture HARDWARE: None in the chest. OTHER: No other significant finding. IMPRESSION: Fluid overload or congestive failure with perihilar pulmonary edema and moderate bilater al pleural effusions. Bibasilar atelectasis/ pneumonia could not be excluded. TECHNICAL DOCUMENTATION: JOB ID: [id number] [employer]- All Rights Reserved Reading location - IP/workstation name: [facility]
[2018-01-19 15:27] LABS: ALANINE AMINOTRANSFERASE 25 U/L (9-52); ALBUMIN 3.4 g/dL (3.5-5.0); ALKALINE PHOSPHATASE 83 U/L (38-126); ANION GAP 12 (5-19); ASPARTATE AMINO TRANSFERASE 23 U/L (14-36); BILIRUBIN,DIRECT 0.3 mg/dL (0.0-0.4); BILIRUBIN,TOTAL 0.3 mg/dL (0.2-1.3); BLOOD UREA NITROGEN 26 mg/dL (7-20); CALCIUM 9.6 mg/dL (8.4-10.2); CARBON DIOXIDE 28 mmol/L (22-30); CHLORIDE 101 mmol/L (98-107); GLUCOSE 154 mg/dL (75-110); POTASSIUM 4.6 mmol/L (3.6-5.0); SODIUM 140.6 mmol/L (137-145); TOTAL PROTEIN 5.9 g/dL (6.3-8.2); VENOUS BLOOD BASE EXCESS 3.7 mmol/L; VENOUS BLOOD HCO3 27.5 mmol/L (20-32); VENOUS BLOOD PCO2 38.8 mmHg (35-63); VENOUS BLOOD PH 7.47 (7.30-7.42)
[2018-01-19 15:31] LABS: CREATINE KINASE < 20 U/L (30-135)
[2018-01-19 15:41] LABS: CREATINE KINASE MB 1.74 ng/mL (<4.55); TROPONIN I 0.015 ng/mL
[2018-01-19] MEDS ORDERED: FUROSEMIDE INJ/PF 40 MG/4 ML SDV IV ONE (15:55)
[2018-01-19] MEDS ORDERED: GLUCAGON,HUMAN RECOMB 1 MG INJ SUBCUT PRN (17:43)
[2018-01-19] MEDS ORDERED: DEXTROSE 50%-WATER 25 GM/50 ML DISP.SYRIN IV PRN ×2 (17:43)
[2018-01-19] MEDS ORDERED: DEXTROSE 40% GEL 15 GM TUBE PO PRN ×2 (17:43)
[2018-01-19 17:54] LABS: APPEARANCE,URINE SLIGHTLY-CLOUDY; BILIRUBIN,URINE NEGATIVE (NEGATIVE); COLOR,URINE YELLOW; GLUCOSE, URINE NEGATIVE (NEGATIVE); KETONES,URINE NEGATIVE (NEGATIVE); LEUKOCYTE ESTERASE,URINE NEGATIVE (NEGATIVE); NITRITE,URINE NEGATIVE (NEGATIVE); PROTEIN,URINE NEGATIVE (NEGATIVE); URINE SPECIFIC GRAVITY 1.013; UROBILINOGEN,URINE NEGATIVE mg/dL (<2.0)
--- NOTE | 2018-01-19 18:02 | EKG REPORT ---
SEVERITY:- ABNORMAL ECG - ATRIAL FIBRILLATION, V-RATE 82-146 BORDERLINE RIGHT AXIS DEVIATION REPOLARIZATION ABNORMALITY, PROB RATE RELATED : Confirmed by: Ben Purdy 19-Jan-2018 18:01:11
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
[2018-01-19] MEDS ORDERED: DIGOXIN INJ 0.5 MG/2 ML AMPULE IV ONE (21:30)
[2018-01-20 04:42] LABS: HEMATOCRIT 37.4 % (36.0-47.0); HEMOGLOBIN 12.6 g/dL (12.0-15.5); MEAN CORPUSCULAR HEMOGLOBIN 34.6 pg (27.0-33.4); MEAN CORPUSCULAR HGB CONC 33.7 g/dL (32.0-36.0); MEAN CORPUSCULAR VOLUME 103 fl (80-97); PLATELET COUNT 156 10^3/uL (150-450); RED BLOOD COUNT 3.64 10^6/uL (3.72-5.28); RED CELL DISTRIBUTION WIDTH 15.7 % (11.5-14.0); WHITE BLOOD COUNT 4.7 10^3/uL (4.0-10.5)
[2018-01-20 04:51] LABS: ANION GAP 11 (5-19); BLOOD UREA NITROGEN 23 mg/dL (7-20); CALCIUM 9.8 mg/dL (8.4-10.2); CARBON DIOXIDE 35 mmol/L (22-30); CHLORIDE 99 mmol/L (98-107); GLUCOSE 87 mg/dL (75-110); POTASSIUM 3.9 mmol/L (3.6-5.0); SODIUM 145.4 mmol/L (137-145)
[2018-01-20] MEDS: ENOXAPARIN SODIUM INJ 40 MG/0.4 ML DISP.SYRIN SUBCUT SCH (09:36)
[2018-01-20] MEDS: METOPROLOL TARTRATE 50 MG TABLET PO SCH ×2 (09:37→22:40)
[2018-01-20] MEDS ORDERED: HYDROCODONE/ACETAMINOPHEN 5-325 MG TABLET PO PRN (09:51)
[2018-01-20] MEDS ORDERED: TRIMETHOPRIM PO SCH (10:00)
[2018-01-20] MEDS ORDERED: [UNRECOGNIZED DRUG - OTHER] PO SCH (10:00)
[2018-01-20] MEDS ORDERED: PRIMIDONE 50 MG TABLET PO SCH (10:00)
[2018-01-20] MEDS ORDERED: (PENDING PHARMACY ID) (Cholecalciferol (Vitamin D3) [Vitamin D3 2000 Unit Tablet] 2,000 UN PO SCH (10:00)
[2018-01-20] MEDS ORDERED: VIT E PO SCH (10:00)
[2018-01-20] MEDS ORDERED: VIT A PO SCH (10:00)
[2018-01-20] MEDS ORDERED: COPPER PO SCH (10:00)
[2018-01-20] MEDS ORDERED: SULFAMETHOXAZOLE PO SCH (10:00)
[2018-01-20] MEDS ORDERED: METOPROLOL TARTRATE 25 MG TABLET PO SCH (10:00)
[2018-01-20] MEDS ORDERED: FUROSEMIDE INJ/PF 20 MG/2 ML SDV IV SCH (10:00)
[2018-01-20] MEDS ORDERED: ZINC PO SCH (10:00)
[2018-01-20] MEDS ORDERED: VIT C PO SCH (10:00)
[2018-01-20] MEDS ORDERED: DIGOXIN INJ 0.5 MG/2 ML AMPULE IV ONE ×2 (10:47→14:00)
[2018-01-20] MEDS ORDERED: ENOXAPARIN SODIUM INJ 40 MG/0.4 ML DISP.SYRIN SUBCUT ONE (11:00)
[2018-01-20] MEDS: ASPIRIN 325 MG TABLET PO SCH (12:43)
[2018-01-20] MEDS: CLOPIDOGREL BISULFATE 75 MG TABLET PO SCH (12:43)
[2018-01-20] MEDS: AZATHIOPRINE 50 MG TABLET PO SCH (12:46)
[2018-01-20] MEDS: PREDNISONE 1 MG TABLET PO SCH (12:48)
[2018-01-20] MEDS: CALCIUM CARBONATE 500 MG TABLET PO SCH (13:11)
[2018-01-20] MEDS: FAMOTIDINE 20 MG TABLET PO SCH ×2 (13:11→22:40)
--- NOTE | 2018-01-20 15:14 | PDOC PROGRESS REPORT ---
Subjective Progress Note for:: 01/20/18 Subjective:: 87 yr old female with Kidney transplant History of [place], CAD A fib on Plavix and Aspirin Gonzalez's palsy Intentional tremor Dementia Lives at home with her daughter and was recently discharge home after being treated for dehydration and Afib RVR. She presented back to the hospital on 01/19/18 for generalized weakness, nausea and dyspnea and was found to have Afib with RVR and bilateral pleural effusions most likely due to diastolic CHF exacerbation secondary to uncontrolled A fib. Reason For Visit: HEART FAILURE Physical Exam Vital Signs: Temp Pulse Resp BP Pulse Ox 98.2 F 100 17 116/85 96 01/20/18 10:00 01/20/18 10:00 01/20/18 10:00 01/20/18 10:00 01/20/18 10:00 Intake & Output 01/19/18 01/20/18 01/21/18 06:59 06:59 06:59 Weight 50.8 kg General appearance: PRESENT: no acute distress, well-developed Head exam: PRESENT: normocephalic Eye exam: ABSENT: scleral icterus Ear exam: PRESENT: normal external ear exam Mouth exam: PRESENT: moist Teeth exam: PRESENT: edentulous Neck exam: ABSENT: JVD, tracheal deviation Respiratory exam: PRESENT: decreased breath sounds, symmetrical, unlabored Cardiovascular exam: PRESENT: irregular rhythm, tachycardia GI/Abdominal exam: PRESENT: normal bowel sounds, soft. ABSENT: tenderness Rectal exam: PRESENT: deferred Extremities exam: ABSENT: calf tenderness Neurological exam: PRESENT: alert, awake Psychiatric exam: PRESENT: appropriate affect Results Laboratory Results: 01/20/18 04:29 01/20/18 04:29 01/19/18 01/20/18 01/20/18 19:50 04:29 04:29 WBC 4.7 RBC 3.64 L Hgb 12.6 Hct 37.4 MCV 103 H MCH 34.6 H MCHC 33.7 RDW 15.7 H Plt Count 156 Sodium 145.4 H Potassium 3.9 Chloride 99 Carbon Dioxide 35 H Anion Gap 11 BUN 23 H Creatinine 0.52 Est GFR ( Amer) > 60 Est GFR (Non-Af Amer) > 60 Glucose 87 Lactic Acid 1.5 Calcium 9.8 01/20/18 04:29 WBC RBC Hgb Hct MCV MCH MCHC RDW Plt Count Sodium Potassium Chloride Carbon Dioxide Anion Gap BUN Creatinine Est GFR ( Amer) Est GFR (Non-Af Amer) Glucose Lactic Acid 1.0 Calcium 01/19/18 19:50 Troponin I 0.014 Impressions: Chest X-Ray 01/19/18 14:26 IMPRESSION: Fluid overload or congestive failure with perihilar pulmonary edema and moderate bilateral pleural effusions. Bibasilar atelectasis/ pneumonia could not be excluded. Assessment & Plan - Diagnosis (1) Diastolic CHF, acute on chronic Is this a current diagnosis for this admission?: Yes Plan: IV Lasix, monitor kidney function and intake and output. (2) Atrial fibrillation with rapid ventricular response Is this a current diagnosis for this admission?: Yes Plan: Continue Metoprolol, did receive 2 doses of IV Digoxin. Cardiology input appreciated (3) Acute superficial venous thrombosis of left lower extremity Is this a current diagnosis for this admission?: No Plan: Seen on recent admission (4) History of renal transplant Is this a current diagnosis for this admission?: Yes Plan: Continue outpatient meds - Time Time Spent with patient: 35 or more minutes
[2018-01-20] MEDS: SULFAMETHOXAZOLE/TRIMETHOPRIM 800-160 MG TABLET PO SCH (18:19)
[2018-01-20] MEDS ORDERED: (PENDING PHARMACY ID) (Pravastatin Sodium [Pravachol] 40 MG) PO SCH (22:00)
[2018-01-20] MEDS: FUROSEMIDE INJ/PF 20 MG/2 ML SDV IV SCH (22:39)
[2018-01-20] MEDS: ATORVASTATIN CALCIUM 10 MG TABLET PO SCH (22:39)
[2018-01-20] MEDS: ISOSORBIDE MONONITRATE 30 MG TAB.ER.24H PO SCH (22:40)
[2018-01-20] MEDS: PRIMIDONE 50 MG TABLET PO SCH (22:44)
[2018-01-21] MEDS: LOSARTAN POTASSIUM 25 MG TABLET PO SCH ×3 (00:48→22:36)
[2018-01-21] MEDS: LANSOPRAZOLE 30 MG TAB.RAP.DR PO SCH (05:57)
[2018-01-21 06:03] LABS: ANION GAP 9 (5-19); BLOOD UREA NITROGEN 26 mg/dL (7-20); CALCIUM 9.7 mg/dL (8.4-10.2); CARBON DIOXIDE 35 mmol/L (22-30); CHLORIDE 95 mmol/L (98-107); GLUCOSE 103 mg/dL (75-110); PHOSPHORUS 4.8 mg/dL (2.5-4.5); POTASSIUM 4.1 mmol/L (3.6-5.0); SODIUM 139.4 mmol/L (137-145)
--- NOTE | 2018-01-21 08:08 | RADIOLOGY REPORT (SQ) ---
EXAM DESCRIPTION: CHEST SINGLE VIEW COMPLETED DATE/TIME: 01/21/2018 6:34 am REASON FOR STUDY: CHF / SOB COMPARISON: CT from 01/21/2018 in x-ray from 01/19/2018 EXAM PARAMETERS: NUMBER OF VIEWS: One view. TECHNIQUE: Single frontal radiographic view of the chest acquired. RADIATION DOSE: NA LIMITATIONS: None. FINDINGS: LUNGS AND PLEURA: Underlying emphysema. Improved aeration of the lung bases with persiste nt pleural effusions. MEDIASTINUM AND HILAR STRUCTURES: No masses. Contour normal. HEART AND VASCULAR STRUCTURES: Heart stable in size. Normal vasculature. BONES: No acute findings. HARDWARE: None in the chest. OTHER: No other significant finding. IMPRESSION: RESULTS PULMONARY EDEMA WITH PERSISTENT PLEURAL EFFUSIONS. TECHNICAL DOCUMENTATION: JOB ID: [id number] [email or web address]- All Rights Reserved Reading location - IP/workstation name: [email or web address]
--- NOTE | 2018-01-21 08:32 | RADIOLOGY REPORT (SQ) ---
EXAM DESCRIPTION: CT CHEST WITHOUT COMPLETED DATE/TIME: 01/21/2018 6:12 am REASON FOR STUDY: HI-RES : Assess Abnormal Chest X-RAy. COMPARISON: Chest radiograph from 01/19/2018. TECHNIQUE: CT scan performed of the chest without intravenous contrast. Images reviewed with lung, soft tissue and bone windows. Reconstructed coronal and sagittal MPR images reviewed. All images st ored on PACS. All CT scanners at this facility use dose modulation, iterative reconstruction, and/or weight based d osing when appropriate to reduce radiation dose to as low as reasonably achievable (ALARA). [facility]: Dose Right [facility]: CareDose [facility]: Dose Right [facility]: Teradose 4D [facility]: Smart [employer] RADIATION DOSE: CT Rad equipment meets quality standard of care and radiation dose reduction techniq ues were employed. CTDIvol: 4.9 mGy. DLP: 200 mGy-cm. mGy. LIMITATIONS: No technical limitations. FINDINGS: LUNGS AND PLEURA: There is a moderate right-sided pleural effusion with associated jaquelin sive atelectasis. There is a trace left-sided pleural effusion. No focal consolidation, significant pulmonary nodules, or mass. No pneumothorax. HILAR AND MEDIASTINAL STRUCTURES: No identified masses or abnormal nodes. No obvious aneurysm. HEART AND VASCULAR STRUCTURES: Multichamber cardiomegaly in the setting of coronary artery calcific d isease. Aortic valvular calcifications. No aneurysm. No pericardial effusion. UPPER ABDOMEN: Marked atrophy of the kidneys. Cholelithiasis. No acute findings. THYROID AND OTHER SOFT TISSUES: No masses. No adenopathy. BONES: Scoliosis and degenerative change of the spine. No acute fracture or suspicious osseous lesio n. HARDWARE: None in the chest. OTHER: No other significant findings. IMPRESSION: INTERVAL IMPROVEMENT OF PREVIOUS IDENTIFIED PULMONARY EDEMA WITH MODERATE RIGHT-SIDED PL EURAL EFFUSION AND TRACE LEFT PLEURAL EFFUSION. ADDITIONAL CHRONIC CHANGES ABOVE. TECHNICAL DOCUMENTATION: JOB ID: [id number] Quality ID # [id number]: Final reports with documentation of one or more dose reduction techniques (e.g., Au tomated exposure control, adjustment of the mA and/or kV according to patient size, use of iterative reconstruction technique) 2010 [employer]- All Rights Reserved Reading location - IP/workstation name: [email or web address]
[2018-01-21] MEDS: METOPROLOL TARTRATE 50 MG TABLET PO SCH ×2 (09:59→22:36)
[2018-01-21] MEDS: ASPIRIN 325 MG TABLET PO SCH (09:59)
[2018-01-21] MEDS: PREDNISONE 1 MG TABLET PO SCH (09:59)
[2018-01-21] MEDS: ENOXAPARIN SODIUM INJ 40 MG/0.4 ML DISP.SYRIN SUBCUT SCH (09:59)
[2018-01-21] MEDS: FUROSEMIDE INJ/PF 20 MG/2 ML SDV IV SCH ×2 (09:59→22:36)
[2018-01-21] MEDS: SULFAMETHOXAZOLE/TRIMETHOPRIM 800-160 MG TABLET PO SCH ×2 (09:59→18:39)
[2018-01-21] MEDS: AZATHIOPRINE 50 MG TABLET PO SCH (10:00)
[2018-01-21] MEDS: FAMOTIDINE 20 MG TABLET PO SCH ×2 (10:00→22:36)
[2018-01-21] MEDS ORDERED: ENOXAPARIN SODIUM INJ 40 MG/0.4 ML DISP.SYRIN SUBCUT SCH (10:00)
[2018-01-21] MEDS: CHOLECALCIFEROL (D3) 1,000 UNIT TABLET PO SCH (10:00)
[2018-01-21] MEDS: CALCIUM CARBONATE 500 MG TABLET PO SCH (10:00)
[2018-01-21] MEDS: CLOPIDOGREL BISULFATE 75 MG TABLET PO SCH (10:01)
[2018-01-21] MEDS: PRIMIDONE 50 MG TABLET PO SCH ×2 (10:01→22:36)
--- NOTE | 2018-01-21 14:44 | PDOC PROGRESS REPORT ---
Subjective Progress Note for:: 01/21/18 Subjective:: 87 yr old female with Kidney transplant History of [place], CAD A fib on Plavix and Aspirin Gonzalez's palsy Intentional tremor Dementia the patient lives at home with her daughter and was recently discharge home after being treated for dehydration and Afib RVR. She presented to the hospital on 01/19/18 for generalized weakness, nausea and dyspnea and was found to have Afib with RVR and bilateral pleural effusions most likely due to diastolic CHF exacerbation secondary to uncontrolled A fib. A fib is being managed by the Cardiology service. Ct of the chest was done by Dr. Prescott and it shows a moderate R sided pleural effusion. Patient feels better overall. Reason For Visit: HEART FAILURE Physical Exam Vital Signs: Temp Pulse Resp BP Pulse Ox 97.8 F 74 18 114/83 96 01/21/18 13:44 01/21/18 13:44 01/21/18 13:44 01/21/18 13:44 01/21/18 13:44 Intake & Output 01/20/18 01/21/18 01/22/18 06:59 06:59 06:59 Intake Total 29 Balance 29 Weight 50.8 kg 49.6 kg General appearance: PRESENT: no acute distress Head exam: PRESENT: normocephalic Eye exam: ABSENT: scleral icterus Ear exam: PRESENT: normal external ear exam Mouth exam: PRESENT: moist Respiratory exam: PRESENT: decreased breath sounds, symmetrical. ABSENT: wheezes Cardiovascular exam: PRESENT: irregular rhythm GI/Abdominal exam: PRESENT: normal bowel sounds, soft. ABSENT: tenderness Rectal exam: PRESENT: deferred Extremities exam: PRESENT: pedal edema Neurological exam: PRESENT: alert, awake, oriented to person, oriented to place , oriented to time Psychiatric exam: PRESENT: appropriate affect Results Laboratory Results: 01/20/18 04:29 01/21/18 04:58 01/21/18 04:58 Sodium 139.4 Potassium 4.1 Chloride 95 L Carbon Dioxide 35 H Anion Gap 9 BUN 26 H Creatinine 0.55 Est GFR ( Amer) > 60 Est GFR (Non-Af Amer) > 60 Glucose 103 Calcium 9.7 Phosphorus 4.8 H Magnesium 1.8 01/19/18 01/21/18 19:50 04:58 Troponin I 0.014 NT-Pro-B Natriuret Pep 4430 H Impressions: Chest CT 01/21/18 06:00 IMPRESSION: INTERVAL IMPROVEMENT OF PREVIOUS IDENTIFIED PULMONARY EDEMA WITH MODERATE RIGHT-SIDED PLEURAL EFFUSION AND TRACE LEFT PLEURAL EFFUSION. ADDITIONAL CHRONIC CHANGES ABOVE. Chest X-Ray 01/21/18 06:00 IMPRESSION: RESULTS PULMONARY EDEMA WITH PERSISTENT PLEURAL EFFUSIONS. Assessment & Plan - Diagnosis (1) Diastolic CHF, acute on chronic Is this a current diagnosis for this admission?: Yes Plan: IV Lasix, monitor kidney function and intake and output. (2) Atrial fibrillation with rapid ventricular response Is this a current diagnosis for this admission?: Yes Plan: Continue Metoprolol, received 2 doses of IV Digoxin. Cardiology input appreciated. Continue to monitor. Not on anticoagulation due to advanced age and fall risk. Continue Aspirin and Plavix. (3) Acute superficial venous thrombosis of left lower extremity Is this a current diagnosis for this admission?: No Plan: Seen on recent admission, no indication for anticoagulation (4) History of renal transplant Is this a current diagnosis for this admission?: Yes Plan: Continue outpatient meds. Monitor renal function. (5) Pleural effusion Is this a current diagnosis for this admission?: Yes Plan: Likely transudative given CHF exacerbation. Pulmonology consult requested for possible thoracentesis. (6) DVT prophylaxis Is this a current diagnosis for this admission?: Yes Plan: Lovenox s/c (7) Full code status Is this a current diagnosis for this admission?: Yes - Time Time Spent with patient: 35 or more minutes
--- NOTE | 2018-01-21 21:34 | PROGRESS NOTE E ---
Progress Note NAME: YAHIR MERAZ : 1930 AGE: 87Y DATE: 01/21/2018 ROOM: 535 SUBJECTIVE: Note that the patient states her shortness of breath is much better. She denies any PND but does have some severe orthopnea. She denies any cough or sputum production. There is no chest pain or discomfort. The patient continues to be in atrial fibrillation with fairly well-controlled heart rate but occasionally the patient's heart rate goes into the 110-115. The patient denies any TIA or CVA symptoms. The patient has no leg edema at present. OBJECTIVE: GENERAL: On examination, the patient appears to be much older than her stated age. She is debilitated and appears to be chronically ill and malnourished. VITAL SIGNS: She is afebrile, with a temperature of 97.8 degrees Fahrenheit. Her pulse is 74 beats per minute. Blood pressure 114/83. Her respirations are 18 per minute. O2 sats are 96% on room air. HEENT: Head is atraumatic, normocephalic. Eyes: Pupils are equal, round, regular and reactive to light and accommodation. Extraocular movements are normal. There is no conjunctival pallor. There is no scleral icterus. ENT is negative. NECK: Supple. There is no JVD. Carotids are equal. There is no bruit. There is no goiter. There is no lymphadenopathy. Trachea is central. LUNGS: Show absent breath sounds in the right base with dullness. The left is fairly clear. The rest of the right lung field is clear. There is no rhonchi, rale or wheezing. HEART: S1, S2 are heard. There is no S3 gallop, there is no S4 gallop. S1 is of variable intensity. There is systolic murmur of mitral regurgitation present. There is no rub. ABDOMEN: Soft, nontender. There is no hepatosplenomegaly. Bowel sounds are well heard. EXTREMITIES: Femorals are diminished. There are no femoral bruits. Leg pulses are very much diminished on the left side. Unable to palpate leg pulse on the right lower extremity. There is no pedal edema. There is no cyanosis or clubbing. There is no DVT. There is no calf tenderness. CENTRAL NERVOUS SYSTEM: The patient is conscious, awake, alert, oriented x3, with no focal deficit. PSYCHIATRIC: The patient's judgment and insight seem to be intact. Her affect is normal. LABORATORY DATA: The patient's sodium is 139.4, potassium 4.1, chloride is 95, CO2 is 35. The patient's BUN is 26, creatinine 0.55. GFR is greater than 60. Glucose is 103. Her calcium is 9.7. Her phosphorous is 4.8. Magnesium is 1.8. Her troponin I was negative on the 31 and 0.014. NT-proBNP is 4,430. Note, the patient's chest x-ray was reviewed by me. Shows a moderate right-sided pleural effusion but left lung is clear. There is no evidence of CHF on this exam. There is cardiomegaly. IMPRESSION: 1. CONGESTIVE HEART FAILURE AT PRESENT/PULMONARY EDEMA, RESOLVED, MOST LIKELY SECONDARY TO OVERHYDRATION AND EFFECT OF MYOCARDIAL DEPRESSION DUE TO THE PATIENT'S HYPOXEMIA AND ALSO THE PATIENT'S MITRAL REGURGITATION AND LOSS OF ATRIAL KICK DUE TO THE PATIENT BEING IN ATRIAL FIBRILLATION AND HENCE ATRIAL NONCONTRIBUTION TO THE CARDIAC OUTPUT. This seemed to be improving at present. The patient's congestive heart failure has resolved. Continue the patient on Lasix 20 mg IV q.12 hours. 2. PLEURAL EFFUSION, MODERATE RIGHT PLEURAL EFFUSION, ? CAUSE. 3. NOTE PATIENT IS ON IMURAN AND STEROIDS BUT THERE IS NO CLEAR CUT X-RAY EVIDENCE OF IMURAN INDUCED NONTOXITY. 4. ATRIAL FIBRILLATION AT PRESENT WITH CONTROLLED HEART VENTRICULAR RESPONSE. 5. CORONARY ARTERY DISEASE WITHOUT ANGINAL SYMPTOMS. SHE HAS A PAST HISTORY OF MYOCARDIAL INFARCTION. Continue the patient on Imdur 30 mg p.o. daily. 6. HISTORY OF LEG SWELLING, MOST LIKELY THIS IS DUE TO CHRONIC VENOUS INSUFFICIENCY. The patient on the last recent admission had a right greater saphenous vein thrombosis. At present, she has no pain in the right groin area. 7. PERIPHERAL VASCULAR DISEASE, ASYMPTOMATIC. 8. HISTORY OF RENAL TRANSPLANT. Patient is on anti-rejection therapy, including Imuran, prednisone and Bactrim. 9. PULMONARY HYPERTENSION WHICH SEEMS TO BE MILD. 10. MODERATE MITRAL REGURGITATION. 11. MODERATE TRICUSPID REGURGITATION. RECOMMENDATIONS: Continue current treatment. Continue Imdur. Continue the patient on metoprolol 50 mg p.o. q.12 hours. Would recommend getting a pulmonary consult to make sure that the patient does not have a atypical pneumonia with a pleural effusion. Discussed with the family that if the etiology of the pleural effusion is still obscure, then the patient may need a pleural symphysis to evaluate and analyze the fluid to see if that gives us a clue as to what pleural effusion is from. Also would recommend getting a pulmonary consult as mentioned earlier. Would continue the patient on aspirin and Plavix. Patient not a candidate for anticoagulation. Would recommend putting the patient on a small dose of digoxin. Note that the patient's MCV was high at 103. Will get B12 levels on her and other iron levels and other anemia workup. Note, that discussed with patient *------* discussed with the hospitalist. Note, 40 minutes spent on the patient, with more than 50% of the time spent on direct patient care. Note, the patient is a FULL CODE. Her daughter is her surrogate healthcare decision-maker. Will follow with you. Thank you. DICTATING PHYSICIAN: SABAS JAEGER M.D. [id number] PHY#: [id number] ID: [id number] JOB#: [id number] ACCT: [id number] cc: >
[2018-01-21] MEDS: ISOSORBIDE MONONITRATE 30 MG TAB.ER.24H PO SCH (22:19)
[2018-01-21] MEDS: ATORVASTATIN CALCIUM 10 MG TABLET PO SCH (22:36)
[2018-01-22] MEDS: LANSOPRAZOLE 30 MG TAB.RAP.DR PO SCH (05:11)
[2018-01-22 06:22] LABS: RETICULOCYTE COUNT (AUTO) 2.15 % (0.66-2.85)
[2018-01-22 06:35] LABS: ANION GAP 9 (5-19); BLOOD UREA NITROGEN 45 mg/dL (7-20); CALCIUM 9.8 mg/dL (8.4-10.2); CARBON DIOXIDE 36 mmol/L (22-30); CHLORIDE 91 mmol/L (98-107); GLUCOSE 101 mg/dL (75-110); IRON(TIBC) 52.4 ug/dL (37-170); POTASSIUM 4.1 mmol/L (3.6-5.0); SODIUM 136.2 mmol/L (137-145)
[2018-01-22] MEDS: FAMOTIDINE 20 MG TABLET PO SCH ×2 (09:43→22:08)
[2018-01-22] MEDS: LOSARTAN POTASSIUM 25 MG TABLET PO SCH ×2 (09:43→22:09)
[2018-01-22] MEDS: CLOPIDOGREL BISULFATE 75 MG TABLET PO SCH (09:43)
[2018-01-22] MEDS: CHOLECALCIFEROL (D3) 1,000 UNIT TABLET PO SCH (09:43)
[2018-01-22] MEDS: METOPROLOL TARTRATE 50 MG TABLET PO SCH ×2 (09:44→22:08)
[2018-01-22] MEDS: ASPIRIN 325 MG TABLET PO SCH (09:44)
[2018-01-22] MEDS: FUROSEMIDE INJ/PF 20 MG/2 ML SDV IV SCH (09:45)
[2018-01-22] MEDS: CALCIUM CARBONATE 500 MG TABLET PO SCH (09:46)
[2018-01-22] MEDS: PRIMIDONE 50 MG TABLET PO SCH ×2 (09:48→22:08)
[2018-01-22] MEDS: SULFAMETHOXAZOLE/TRIMETHOPRIM 800-160 MG TABLET PO SCH ×2 (09:48→18:33)
[2018-01-22] MEDS: PREDNISONE 1 MG TABLET PO SCH (09:49)
[2018-01-22] MEDS: AZATHIOPRINE 50 MG TABLET PO SCH (09:50)
[2018-01-22] MEDS: DIGOXIN 0.125 MG TABLET PO SCH (09:50)
[2018-01-22] MEDS: ENOXAPARIN SODIUM INJ 40 MG/0.4 ML DISP.SYRIN SUBCUT SCH (09:54)
--- NOTE | 2018-01-22 12:39 | RADIOLOGY REPORT (SQ) ---
EXAM DESCRIPTION: CHEST SINGLE VIEW COMPLETED DATE/TIME: 01/22/2018 12:21 pm REASON FOR STUDY: Pleural Effusion COMPARISON: 01/21/2018 EXAM PARAMETERS: NUMBER OF VIEWS: One view. TECHNIQUE: Single frontal radiographic view of the chest acquired. RADIATION DOSE: NA LIMITATIONS: None. FINDINGS: LUNGS AND PLEURA: Underlying emphysema. Stable pleural effusions with associated airspace disease. MEDIASTINUM AND HILAR STRUCTURES: No masses. Contour normal. HEART AND VASCULAR STRUCTURES: Heart stable in size. Normal vasculature. BONES: No acute findings. HARDWARE: None in the chest. OTHER: No other significant finding. IMPRESSION: STABLE APPEARANCE OF THE CHEST WITH PLEURAL EFFUSIONS AND AIRSPACE DISEASE. TECHNICAL DOCUMENTATION: JOB ID: [id number] [employer]- All Rights Reserved Reading location - IP/workstation name: [email or web address]
--- NOTE | 2018-01-22 12:45 | PDOC PROGRESS REPORT ---
Subjective Progress Note for:: 01/22/18 Subjective:: 87 yr old female with Kidney transplant History of [place], CAD A fib on Plavix and Aspirin Gonzalez's palsy Intentional tremor Dementia the patient lives at home with her daughter and was recently discharge home after being treated for dehydration and Afib RVR. She presented to the hospital on 01/19/18 for generalized weakness, nausea and dyspnea and was found to have Afib with RVR and bilateral pleural effusions most likely due to diastolic CHF exacerbation secondary to uncontrolled A fib. The patient feels much better today. Digoxin has been started for better HR control. Not a candidate for anticoagulation due to advanced age and comorbidities Reason For Visit: HEART FAILURE Physical Exam Vital Signs: Temp Pulse Resp BP Pulse Ox 97.7 F 74 18 117/75 96 01/22/18 08:48 01/22/18 08:48 01/22/18 08:48 01/22/18 08:48 01/22/18 08:48 Intake & Output 01/21/18 01/22/18 01/23/18 06:59 06:59 06:59 Intake Total 29 1395 Output Total 1650 Balance 29 -255 Weight 49.6 kg 49.2 kg General appearance: PRESENT: no acute distress, thin Head exam: PRESENT: normocephalic Mouth exam: PRESENT: moist Neck exam: ABSENT: tracheal deviation Respiratory exam: PRESENT: symmetrical, unlabored Cardiovascular exam: PRESENT: irregular rhythm, systolic murmur GI/Abdominal exam: PRESENT: normal bowel sounds, soft. ABSENT: tenderness Rectal exam: PRESENT: deferred Extremities exam: ABSENT: pedal edema Neurological exam: PRESENT: alert, awake, oriented to person, oriented to place , oriented to time, oriented to situation Psychiatric exam: PRESENT: appropriate affect Results Laboratory Results: 01/20/18 04:29 01/22/18 05:49 01/22/18 01/22/18 05:49 05:49 Retic Count (auto) 2.15 Absolute Retic 0.080 Sodium 136.2 L Potassium 4.1 Chloride 91 L Carbon Dioxide 36 H Anion Gap 9 BUN 45 H Creatinine 0.89 Est GFR ( Amer) > 60 Est GFR (Non-Af Amer) > 60 Glucose 101 Calcium 9.8 Iron 52.4 TIBC 312 % Saturation 17 Ferritin 34.60 Vitamin B12 452.0 Folate 12.30 01/19/18 01/21/18 19:50 04:58 Troponin I 0.014 NT-Pro-B Natriuret Pep 4430 H Impressions: Chest CT 01/21/18 06:00 IMPRESSION: INTERVAL IMPROVEMENT OF PREVIOUS IDENTIFIED PULMONARY EDEMA WITH MODERATE RIGHT-SIDED PLEURAL EFFUSION AND TRACE LEFT PLEURAL EFFUSION. ADDITIONAL CHRONIC CHANGES ABOVE. Chest X-Ray 01/22/18 00:00 IMPRESSION: STABLE APPEARANCE OF THE CHEST WITH PLEURAL EFFUSIONS AND AIRSPACE DISEASE. Assessment & Plan - Diagnosis (1) Diastolic CHF, acute on chronic Is this a current diagnosis for this admission?: Yes Plan: Continue Lasix, monitor kidney function and intake and output. (2) Atrial fibrillation with rapid ventricular response Is this a current diagnosis for this admission?: Yes Plan: Continue Metoprolol, Digoxin, ASA and Plavix Continue to monitor. Not on anticoagulation due to advanced age and fall risk. (3) Acute superficial venous thrombosis of left lower extremity Is this a current diagnosis for this admission?: No Plan: Seen on recent admission, no indication for anticoagulation (4) History of renal transplant Is this a current diagnosis for this admission?: Yes Plan: Continue outpatient meds. Monitor renal function. (5) Pleural effusion Is this a current diagnosis for this admission?: Yes Plan: Likely transudative given CHF exacerbation. Pulmonology consult requested for possible thoracentesis. (6) DVT prophylaxis Is this a current diagnosis for this admission?: Yes Plan: Lovenox s/c (7) Full code status Is this a current diagnosis for this admission?: Yes - Time Time Spent with patient: 25-34 minutes
--- NOTE | 2018-01-22 20:29 | PROGRESS NOTE E ---
Progress Note NAME: YAHIR MERAZ : 1930 AGE: 87Y DATE: 01/22/2018 ROOM: 535 SUBJECTIVE: The patient denies any shortness of breath. There is no PND or orthopnea. There is no cough or sputum production. There is no leg edema. There are no anginal symptoms. The patient appears to be in atrial fibrillation, with controlled ventricular response. OBJECTIVE: GENERAL: On examination, the patient appears to be much older than his stated age. She is debilitated and appears to be chronically ill and malnourished. She is very frail. VITAL SIGNS: She is afebrile, with a temperature of 97.7 degrees Fahrenheit. Pulse is 74 beats per minute, blood pressure 117/75, respirations are 18 per minute. O2 sats are 96% on room air. HEENT: Head is atraumatic, normocephalic. Eyes: Pupils are equal, round, regular, react to light and accommodation. Extraocular movements are normal. There is no conjunctival pallor. There is no scleral icterus. ENT is negative. NECK: Supple. There is no JVD. Carotids are equal. There is no bruit. There is no goiter. There is no lymphadenopathy. Trachea is central. LUNGS: Show a small area of absent breath sounds in both bases, which is much smaller than yesterday. There are bibasilar dry crackles. No rales or CHF. CHEST: There is no chest wall tenderness. HEART: S1, S2 heard. There is no S3 gallop. There is no S4 gallop. S1 is of variable intensity. There is a systolic murmur of mitral regurgitation present. There is no rub. ABDOMEN: Soft, nontender. There is no hepatosplenomegaly. Bowel sounds are well-heard. EXTREMITIES: Femorals are diminished. There are no femoral bruits. The pulses on the left are very much diminished; right lower extremity, unable to feel the pulse. There is no pedal edema. There is no cyanosis or clubbing. There is no DVT. There is no calf tenderness. [employer]OR: The patient is conscious, awake, alert, oriented x3, with no focal deficits. PSYCHIATRIC: The patient's judgment and insight are intact. Her affect is normal. The patient's 24-hour intake is 1395 mL, output is 1650 mL. DIAGNOSTICS: The patient's chest x-ray shows bibasilar air space disease, improved. Effusions are much improved compared to yesterday. The patient's sodium is 136.2, potassium is 4.1, chloride 91, CO2 is 36. The patient's BUN is 25, creatinine 0.89. GFR is greater than 62. Glucose is 101. Calcium is 9.8. The patient's iron is 52.4. TIBC is 312, percentage saturation is *------*. The patient's ferritin is 34.6. The patient's B12 is 452. Folate is 12.3. ASSESSMENT: 1. CONGESTIVE HEART FAILURE, MOST LIKELY SECONDARY TO MITRAL REGURGITATION, VOLUME OVERLOAD AND ATRIAL FIBRILLATION, AT PRESENT COMPENSATED. No evidence of congestive heart failure by physical exam or by chest x-ray. Note that chest x-ray shows normal vasculature. 2. PLEURAL EFFUSIONS, MUCH IMPROVED. 3. LOWER LOBE LUNG INFILTRATES, QUESTION PNEUMONIA. 4. NO DEFINITE EVIDENCE OF IMURAN-INDUCED LUNG TOXICITY. 5. ATRIAL FIBRILLATION. At present, controlled ventricular response. Note that the patient is on digoxin. Will recheck the patient's dig level in the a.m. 6. MITRAL REGURGITATION. Note that the patient has been started on an ARB. Will see if this helps the patient's MR. 7. CORONARY ARTERY DISEASE WITHOUT ANGINAL SYMPTOMS. There are no anginal symptoms. There is no evidence of an CT. Continue the patient on Imdur 30 mg p.o. daily. 8. HISTORY OF LEG SWELLING, CHRONIC, MOST LIKELY SECONDARY TO CHRONIC VENOUS INSUFFICIENCY. The patient, last admission, had greater saphenous vein thrombosis, which now the patient is asymptomatic from. Looks like it has resolved. 9. *------*, ASYMPTOMATIC. 10. HISTORY OF RENAL TRANSPLANT. Continue patient in Imuran. Presently on Bactrim. 11. PULMONARY HYPERTENSION. 12. MODERATE MITRAL REGURGITATION. 13. MODERATE TRICUSPID REGURGITATION. RECOMMENDATIONS: Continue metoprolol. Continue digoxin. Continue Imdur. Continue aspirin and Plavix. Would change the Lasix from 20 mg IV q.12 hours to 20 mg p.o. daily, since the BUN is rising. The patient is asymptomatic and clinically, there is no much pleural effusion bilaterally. Await Pulmonary consultation. Discussed with the patient and patient's daughter. Note, 40 minutes spent on the patient, with more than 50% of the time spent in direct patient care. Her medications have been reviewed and medications adjusted. Note, medical decision-making is of moderate complexity. Dr. Spaulding will follow the in the a.m. DICTATING PHYSICIAN: SABAS JAEGER M.D. [id number] PHY#: [id number] ID: [id number] JOB#: [id number] ACCT: [id number] cc: >
[2018-01-22] MEDS: ATORVASTATIN CALCIUM 10 MG TABLET PO SCH (22:08)
[2018-01-22] MEDS: ISOSORBIDE MONONITRATE 30 MG TAB.ER.24H PO SCH (22:09)
[2018-01-23] MEDS: LANSOPRAZOLE 30 MG TAB.RAP.DR PO SCH (06:21)
[2018-01-23 07:09] LABS: ANION GAP 7 (5-19); BLOOD UREA NITROGEN 50 mg/dL (7-20); CALCIUM 9.7 mg/dL (8.4-10.2); CARBON DIOXIDE 38 mmol/L (22-30); CHLORIDE 93 mmol/L (98-107); DIGOXIN 0.96 ng/mL (0.8-2.0); GLUCOSE 91 mg/dL (75-110); POTASSIUM 4.2 mmol/L (3.6-5.0); SODIUM 138.2 mmol/L (137-145)
--- NOTE | 2018-01-23 07:23 | CONSULTATION REPORT E ---
Consultation Report NAME: YAHIR MERAZ : 1930 AGE: 87Y DATE: 01/20/2018 ROOM: 535 A TO: SABAS JAEGER M.D. FROM: Requesting Physician REASON FOR CONSULTATION: Atrial fibrillation with fast ventricular response and also congestive heart failure. HISTORY OF PRESENT ILLNESS: The patient is well-known to me from recent admission. She is an 87-year-old female with a history of renal transplant in 1959 on anti-rejection therapy with Imuran and steroids who was recently admitted with atrial fibrillation with fast ventricular response, dehydration, and generalized weakness. She was discharged on 01/18, and went home and states then, as per the patient and the daughter who are both poor historians, the patient started having more shortness of breath with orthopnea. There was no cough or fever. The daughter states that the oxygen saturations dropped every now and then into the low 80s to the high 70s. She was brought in and found to be in atrial fibrillation with a fast ventricular response and also she had a chest x-ray report perihilar infiltrates suggestive of heart failure and bilateral pleural effusions which are moderate, and bibasilar atelectasis/pneumonia could not be excluded. The patient denies any palpitations, although she is in atrial fibrillation with a ventricular response in the 120s. She does have orthopnea but no PND, no chest pain or discomfort. She denies any cough or sputum production. There is no wheezing. DICTATION ENDED DICTATING PHYSICIAN: SABAS JAEGER M.D. [id number] Y#: [id number] ID: [id number] JOB#: [id number] ACCT: [id number] cc:SABAS JAEGER M.D. >
[2018-01-23] MEDS: CHOLECALCIFEROL (D3) 1,000 UNIT TABLET PO SCH (11:01)
[2018-01-23] MEDS: FAMOTIDINE 20 MG TABLET PO SCH ×2 (11:01→20:38)
[2018-01-23] MEDS: ASPIRIN 325 MG TABLET PO SCH (11:01)
[2018-01-23] MEDS: SULFAMETHOXAZOLE/TRIMETHOPRIM 800-160 MG TABLET PO SCH ×2 (11:02→17:25)
[2018-01-23] MEDS: CLOPIDOGREL BISULFATE 75 MG TABLET PO SCH (11:02)
[2018-01-23] MEDS: FUROSEMIDE 20 MG TABLET PO SCH (11:02)
[2018-01-23] MEDS: LACTOBACILLUS ACIDOPHILUS 250 MG TAB PO SCH ×2 (11:04→17:25)
[2018-01-23] MEDS: METOPROLOL TARTRATE 50 MG TABLET PO SCH ×2 (11:04→20:39)
[2018-01-23] MEDS: DIGOXIN 0.125 MG TABLET PO SCH (11:05)
[2018-01-23] MEDS: MAGNESIUM OXIDE 400 MG TABLET PO SCH (11:05)
[2018-01-23] MEDS: CALCIUM CARBONATE 500 MG TABLET PO SCH (11:05)
[2018-01-23] MEDS: LOSARTAN POTASSIUM 25 MG TABLET PO SCH ×2 (11:06→20:38)
[2018-01-23] MEDS: ENOXAPARIN SODIUM INJ 40 MG/0.4 ML DISP.SYRIN SUBCUT SCH (11:06)
[2018-01-23] MEDS: PRIMIDONE 50 MG TABLET PO SCH ×2 (11:07→20:39)
[2018-01-23] MEDS: PREDNISONE 1 MG TABLET PO SCH (11:08)
[2018-01-23] MEDS: AZATHIOPRINE 50 MG TABLET PO SCH (11:09)
--- NOTE | 2018-01-23 12:17 | PDOC PROGRESS REPORT ---
Subjective Progress Note for:: 01/23/18 Subjective:: 87 yr old female with Kidney transplant History of [place], CAD A fib on Plavix and Aspirin Gonzalez's palsy Intentional tremor Dementia the patient lives at home with her daughter and was recently discharge home after being treated for dehydration and Afib RVR. She presented to the hospital on 01/19/18 for generalized weakness, nausea and dyspnea and was found to have Afib with RVR and bilateral pleural effusions most likely due to diastolic CHF exacerbation secondary to uncontrolled A fib. The patient feels much better today. HR well controlled with Dig and Lopressor Not a candidate for anticoagulation due to advanced age and comorbidities. Has a moderate R sided pleural effusion, possible thoracentesis. No complaints. Feels well. Reason For Visit: HEART FAILURE Physical Exam Vital Signs: Temp Pulse Resp BP Pulse Ox 97.5 F 79 16 118/70 95 01/23/18 08:00 01/23/18 08:00 01/23/18 08:00 01/23/18 08:00 01/23/18 08:00 Intake & Output 01/22/18 01/23/18 01/24/18 06:59 06:59 06:59 Intake Total 1395 1855 Output Total 1650 1850 Balance -255 5 Weight 49.2 kg 48.6 kg General appearance: PRESENT: no acute distress Head exam: PRESENT: normocephalic Eye exam: ABSENT: scleral icterus Ear exam: PRESENT: normal external ear exam Mouth exam: PRESENT: moist Neck exam: ABSENT: tracheal deviation Respiratory exam: PRESENT: symmetrical, unlabored. ABSENT: wheezes Cardiovascular exam: PRESENT: irregular rhythm, systolic murmur GI/Abdominal exam: PRESENT: normal bowel sounds, soft. ABSENT: tenderness Rectal exam: PRESENT: deferred Gentrourinary exam: ABSENT: indwelling catheter Extremities exam: ABSENT: pedal edema Neurological exam: PRESENT: alert, awake, oriented to person, oriented to place , oriented to time, oriented to situation Psychiatric exam: PRESENT: appropriate affect Skin exam: PRESENT: other - chronic venous stasis changes b/l LE Results Laboratory Results: 01/20/18 04:29 01/23/18 05:55 01/23/18 05:55 Sodium 138.2 Potassium 4.2 Chloride 93 L Carbon Dioxide 38 H Anion Gap 7 BUN 50 H Creatinine 0.75 Est GFR ( Amer) > 60 Est GFR (Non-Af Amer) > 60 Glucose 91 Calcium 9.7 01/19/18 01/21/18 19:50 04:58 Troponin I 0.014 NT-Pro-B Natriuret Pep 4430 H Impressions: Chest CT 01/21/18 06:00 IMPRESSION: INTERVAL IMPROVEMENT OF PREVIOUS IDENTIFIED PULMONARY EDEMA WITH MODERATE RIGHT-SIDED PLEURAL EFFUSION AND TRACE LEFT PLEURAL EFFUSION. ADDITIONAL CHRONIC CHANGES ABOVE. Chest X-Ray 01/22/18 00:00 IMPRESSION: STABLE APPEARANCE OF THE CHEST WITH PLEURAL EFFUSIONS AND AIRSPACE DISEASE. Assessment & Plan - Diagnosis (1) Diastolic CHF, acute on chronic Is this a current diagnosis for this admission?: Yes Plan: Continue Lasix, monitor kidney function and intake and output. (2) Atrial fibrillation with rapid ventricular response Is this a current diagnosis for this admission?: Yes Plan: Continue Metoprolol, Digoxin, ASA and Plavix Continue to monitor. Not on anticoagulation due to advanced age and fall risk. (3) Acute superficial venous thrombosis of left lower extremity Is this a current diagnosis for this admission?: No Plan: Seen on recent admission, no indication for anticoagulation. No pain or swelling of lower extremity (4) History of renal transplant Is this a current diagnosis for this admission?: Yes Plan: Continue outpatient meds. Monitor renal function. (5) Pleural effusion Is this a current diagnosis for this admission?: Yes Plan: Likely transudative given CHF exacerbation. Pulmonology consult requested for possible thoracentesis. (6) DVT prophylaxis Is this a current diagnosis for this admission?: Yes Plan: Lovenox s/c (7) Full code status Is this a current diagnosis for this admission?: Yes (8) Moderate mitral regurgitation Is this a current diagnosis for this admission?: Yes Plan: Continue medical management (9) Moderate tricuspid regurgitation Is this a current diagnosis for this admission?: Yes Plan: medical management - Time Time Spent with patient: 25-34 minutes
--- NOTE | 2018-01-23 13:54 | PDOC CONSULTATION ---
Consultation Consult Date: 01/23/18 Attending physician:: SUNITA JAMESON Consult reason:: Shortness of breath History of Present Illness Admission Date/PCP: 01/19/18 17:18 History of Present Illness: YAHIR MERAZ is a 87 year old female,with multiple medical problems she status post renal transplant as he is on Imuran and prednisone she was recently discharged from hospital but returned to the emergency room complaining of shortness of breath orthopnea and restlessness she denies nausea vomiting diarrhea fevers chills chest pain but has chronic edema. She denies any hemoptysis PPD status is unknown no history of chronic lung disease as a child or adolescent. 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 Overall information was limited by patient's limited historical perspective. Past Medical History Cardiac Medical History: Reports: Atrial Fibrillation, Congestive Heart Failure , Myocardial Infarction, Hyperlipidema, Hypertension Neurological Medical History: Denies: Seizures Skin Medical History: Denies: Psoriasis Psychiatric Medical History: Reports: Dementia Denies: Substance Abuse Traumatic Medical History: Denies: Traumatic Brain Injury Hematology: Denies: Hemophilia, Sickle Cell Disease Infectious Medical History: Denies: HIV Past Surgical History Past Surgical History: Denies: Internal Defibrillator, Pacemaker Social History Information Source: [facility] Records Lives with: Family Smoking Status: Never Smoker Frequency of Alcohol Use: None Hx Recreational Drug Use: No Drugs: None Hx Prescription Drug Abuse: No - Advance Directive Resuscitation Status: Full Code Family History Family History: CVA, Hypertension Parental Family History Reviewed: No Children Family History Reviewed: No Sibling(s) Family History Reviewed.: No Medication/Allergy Home Medications: Aspirin [Aspirin 325 mg Tablet] 325 mg PO DAILY 01/19/18 Azathioprine [Imuran 50 mg Tablet] 25 mg PO SUTUTHSA@1000 01/19/18 Azathioprine [Imuran 50 mg Tablet] 50 mg PO MOWEFR@1000 01/19/18 Calcium Carbonate [Os-Matheus 500 mg Tablet (Oyster-Shell)] 500 mg PO DAILY Cholecalciferol (Vitamin D3) [Vitamin D3 2000 unit Tablet] 2,000 unit PO DAILY 01/19/18 Clopidogrel Bisulfate [Plavix 75 mg Tablet] 75 mg PO DAILY 01/19/18 Famotidine [Pepcid 20 mg Tablet] 20 mg PO Q12 01/19/18 Furosemide [Lasix 20 mg Tablet] 20 mg PO DAILY 01/19/18 Hydrocodone/Acetaminophen [[place] 5-325 mg Tablet] 1 tab PO Q4HP PRN 01/19/18 Isosorbide Mononitrate [Imdur 30 mg Tablet.er] 30 mg PO DAILY 01/19/18 Metoprolol Tartrate [Lopressor 25 mg Tablet] 50 mg PO Q12 01/19/18 Omeprazole 40 mg PO DAILY 01/19/18 Pravastatin Sodium [Pravachol] 40 mg PO DAILY 01/19/18 Prednisone [Deltasone 1 mg Tablet] 2 mg PO DAILY 01/19/18 Primidone [Mysoline 50 mg Tablet] 100 mg PO BID 01/19/18 Sulfamethoxazole/Trimethoprim [Bactrim 400-80 mg Tablet] 1 tab PO BID 01/19/18 Vit A/Vit C/Vit E/Zinc/Copper [Preservision Areds Softgel] 1 tab PO Q12 Allergies/Adverse Reactions: morphine Allergy (Verified 08/19/17 16:16) phenobarbital Allergy (Verified 08/19/17 16:16) Review of Systems ROS unobtainable: Due to mental status Physical Exam Vital Signs: Temp Pulse Resp BP Pulse Ox 97.5 F 79 16 118/70 95 01/23/18 08:00 01/23/18 08:00 01/23/18 08:00 01/23/18 08:00 01/23/18 08:00 Intake & Output 01/22/18 01/23/18 01/24/18 06:59 06:59 06:59 Intake Total 1395 1855 Output Total 1650 1850 Balance -255 5 Weight 49.2 kg 48.6 kg General appearance: PRESENT: no acute distress, cooperative, disheveled, hard of hearing, thin Head exam: PRESENT: atraumatic, normocephalic Eye exam: PRESENT: conjunctiva pale, EOMI. ABSENT: nystagmus, periorbital swelling, scleral icterus Mouth exam: PRESENT: dry mucosa, neck supple, tongue midline Neck exam: ABSENT: carotid bruit, JVD, lymphadenopathy, thyromegaly, tracheal deviation, tracheostomy Respiratory exam: PRESENT: decreased breath sounds, prolonged expiratory phas, rhonchi, unlabored. ABSENT: rales, retraction, stridor, tachypnea Cardiovascular exam: PRESENT: RRR, +S1, +S2 Pulses: PRESENT: normal radial pulses GI/Abdominal exam: PRESENT: normal bowel sounds, soft Extremities exam: ABSENT: calf tenderness, clubbing, joint swelling Musculoskeletal exam: ABSENT: deformity, dislocation Neurological exam: PRESENT: awake, oriented to person, oriented to place. ABSENT: alert, oriented to time, oriented to situation Psychiatric exam: PRESENT: flat affect Skin exam: PRESENT: dry, warm Results Laboratory Results: 01/20/18 04:29 01/23/18 05:55 01/23/18 05:55 Sodium 138.2 Potassium 4.2 Chloride 93 L Carbon Dioxide 38 H Anion Gap 7 BUN 50 H Creatinine 0.75 Est GFR ( Amer) > 60 Est GFR (Non-Af Amer) > 60 Glucose 91 Calcium 9.7 01/19/18 01/21/18 19:50 04:58 Troponin I 0.014 NT-Pro-B Natriuret Pep 4430 H Impressions: Chest CT 01/21/18 06:00 IMPRESSION: INTERVAL IMPROVEMENT OF PREVIOUS IDENTIFIED PULMONARY EDEMA WITH MODERATE RIGHT-SIDED PLEURAL EFFUSION AND TRACE LEFT PLEURAL EFFUSION. ADDITIONAL CHRONIC CHANGES ABOVE. Chest X-Ray 01/22/18 00:00 IMPRESSION: STABLE APPEARANCE OF THE CHEST WITH PLEURAL EFFUSIONS AND AIRSPACE DISEASE. Assessment & Plan - Diagnosis (1) Atrial fibrillation with rapid ventricular response Is this a current diagnosis for this admission?: Yes Plan: Ventricular rate stable at this time (2) CHF (congestive heart failure) Qualifiers: Heart failure type: diastolic Heart failure chronicity: acute on chronic Qualified Code(s): I50.33 - Acute on chronic diastolic (congestive) heart failure Is this a current diagnosis for this admission?: Yes Plan: Continue gentle diuresis (3) Pleural effusion Is this a current diagnosis for this admission?: Yes Plan: Patient is clinically stable with no leukocytosis left shift or temperature with follow hoping that it would resolve a CHF resolves (4) History of renal transplant Is this a current diagnosis for this admission?: Yes
--- NOTE | 2018-01-23 18:51 | PDOC PROGRESS REPORT ---
Subjective Progress Note for:: 01/23/18 Subjective:: Patient seems to be doing better with gradual improvement. Pt is denying any chest arm or neck discomfort. Patient denying any PND, orthopnea. Patient denied any sustained palpitations, dizziness, syncope, near syncope. Patient denying any fever chills. Patient denying any other significant discomfort. Patient's telemetry strips were reviewed. Patient had an episode of wide- complex tachycardia but on closer analysis, this was felt to be artifactual. Otherwise no significant tacky or bradycardia arrhythmias noted. Patient does have history of atrial fibrillation. Review of systems: Rest review of systems negative. Medications: Medications have been reviewed. Reason For Visit: HEART FAILURE Physical Exam Vital Signs: Temp Pulse Resp BP Pulse Ox 97.5 F 84 16 118/70 95 01/23/18 08:00 01/23/18 14:00 01/23/18 08:00 01/23/18 08:00 01/23/18 08:00 Intake & Output 01/22/18 01/23/18 01/24/18 06:59 06:59 06:59 Intake Total 1395 1855 Output Total 1650 1850 Balance -255 5 Weight 49.2 kg 48.6 kg Exam: GENERAL: Thin built and in no acute distress. Alert and oriented x3. Patient looks debilitated. HEAD: Atraumatic, normocephalic. EYES: Pupils equal round and reactive to light, extraocular movements intact, sclera anicteric, conjunctiva are normal. ENT: TMs normal, nares patent, oropharynx clear without exudates. Moist mucous membranes. No oral ulcerations or bleeding gums noted NECK: supple without lymphadenopathy. Trachea is central. No cervical or axillary lymphadenopathy noted. Carotids are 2+, JVD WNL LUNGS: Respiration seems nonlabored, no significant accessory muscle action noted. Breath sounds clear to auscultation bilaterally and equal noted. No wheezes rales or rhonchi noted. No significant dullness noted on percussion. CHEST: Palpation of the chest wall shows no significant chest wall tenderness. 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 ABDOMEN: Soft, no significant tenderness appreciated, normoactive bowel sounds. No guarding, no rebound. No rigidity noted . No masses appreciated. EXTREMITIES: Pedal pulses are 1-2+, no calf tenderness noted. No clubbing or cyanosis. negative pedal edema noted NEUROLOGICAL: Focused neurological exam showed no significant neurologic deficit. Normal speech, no focal weakness appreciated. PSYCH: Normal mood, normal affect. Judgment and insight within normal limits. SKIN: No significant ecchymosis, skin is noted to be warm. MUSCULOSKELETAL EXAM: No significant acute joint swelling noted. Results Laboratory Results: 01/20/18 04:29 01/23/18 05:55 01/23/18 05:55 Sodium 138.2 Potassium 4.2 Chloride 93 L Carbon Dioxide 38 H Anion Gap 7 BUN 50 H Creatinine 0.75 Est GFR ( Amer) > 60 Est GFR (Non-Af Amer) > 60 Glucose 91 Calcium 9.7 01/19/18 01/21/18 19:50 04:58 Troponin I 0.014 NT-Pro-B Natriuret Pep 4430 H Impressions: Chest CT 01/21/18 06:00 IMPRESSION: INTERVAL IMPROVEMENT OF PREVIOUS IDENTIFIED PULMONARY EDEMA WITH MODERATE RIGHT-SIDED PLEURAL EFFUSION AND TRACE LEFT PLEURAL EFFUSION. ADDITIONAL CHRONIC CHANGES ABOVE. Chest X-Ray 01/22/18 00:00 IMPRESSION: STABLE APPEARANCE OF THE CHEST WITH PLEURAL EFFUSIONS AND AIRSPACE DISEASE. Assessment & Plan - Diagnosis (1) Atrial fibrillation with rapid ventricular response Is this a current diagnosis for this admission?: Yes (2) CHF (congestive heart failure) Qualifiers: Heart failure type: diastolic Heart failure chronicity: acute on chronic Qualified Code(s): I50.33 - Acute on chronic diastolic (congestive) heart failure Is this a current diagnosis for this admission?: Yes (3) Moderate mitral regurgitation Is this a current diagnosis for this admission?: Yes (4) Moderate tricuspid regurgitation Is this a current diagnosis for this admission?: Yes (5) Pleural effusion Is this a current diagnosis for this admission?: Yes - Notes Notes: Atrial fibrillation with rapid ventricular response: This was noted on admission. Currently ventricular response is well controlled. CHF: Patient still has mild CHF with small bilateral pleural effusion. Do not see much evidence of fluid overload. However recommend continuing current dose of diuretics. Valvular heart disease: Currently is stable. No need for operative intervention. Pleural effusion: This seems improving General debility: Patient has significant general debility. Patient will benefit from physical therapy and general strengthening exercises. - Time Time with patient: 15-25 minutes - CODE STATUS was discussed, patient remains full code. Surrogate decision-maker unchanged. Multiple medical problems were addressed. More than 50% of the time spent coordinating care, discussing management plans with involved caregivers. Management plans discussed with involved personnels. Medical decision making was of moderate to high complexity , patient's has multiple comorbidities. Medications reviewed and adjusted accordingly: Yes
[2018-01-23] MEDS: ATORVASTATIN CALCIUM 10 MG TABLET PO SCH (20:38)
[2018-01-23] MEDS: ISOSORBIDE MONONITRATE 30 MG TAB.ER.24H PO SCH (20:39)
[2018-01-24] MEDS: LANSOPRAZOLE 30 MG TAB.RAP.DR PO SCH (04:59)
[2018-01-24 07:44] LABS: ANION GAP 8 (5-19); BLOOD UREA NITROGEN 47 mg/dL (7-20); CALCIUM 9.7 mg/dL (8.4-10.2); CARBON DIOXIDE 34 mmol/L (22-30); CHLORIDE 96 mmol/L (98-107); GLUCOSE 92 mg/dL (75-110); POTASSIUM 4.3 mmol/L (3.6-5.0); SODIUM 137.6 mmol/L (137-145)
[2018-01-24 09:38] LABS: PHOSPHORUS 3.2 mg/dL (2.5-4.5)
--- NOTE | 2018-01-24 10:33 | PDOC PROGRESS REPORT ---
Subjective Progress Note for:: 01/24/18 Subjective:: denies problem with breathing Reason For Visit: HEART FAILURE Physical Exam Vital Signs: Temp Pulse Resp BP Pulse Ox 98.1 F 85 13 114/67 91 L 01/24/18 03:59 01/24/18 07:00 01/24/18 03:59 01/24/18 03:59 01/24/18 03:59 Intake & Output 01/23/18 01/24/18 01/25/18 06:59 06:59 06:59 Intake Total 1855 680 Output Total 1850 700 Balance 5 -20 Weight 48.6 kg 48.2 kg General appearance: PRESENT: no acute distress, cooperative, disheveled, hard of hearing, thin Head exam: PRESENT: atraumatic, normocephalic Eye exam: PRESENT: conjunctiva pale, EOMI. ABSENT: nystagmus, periorbital swelling, scleral icterus Mouth exam: PRESENT: dry mucosa, neck supple, tongue midline Neck exam: ABSENT: carotid bruit, JVD, lymphadenopathy, thyromegaly, tracheal deviation, tracheostomy Respiratory exam: PRESENT: decreased breath sounds, prolonged expiratory phas, rhonchi, symmetrical - ibasilar decrease breath sound improved slightly last 24 hrs. ABSENT: retraction, stridor Cardiovascular exam: PRESENT: irregular rhythm. ABSENT: tachycardia Pulses: PRESENT: normal radial pulses GI/Abdominal exam: PRESENT: normal bowel sounds, soft Extremities exam: ABSENT: calf tenderness, clubbing, joint swelling Musculoskeletal exam: ABSENT: deformity, dislocation Neurological exam: PRESENT: awake, oriented to person, oriented to place Psychiatric exam: PRESENT: flat affect Skin exam: PRESENT: dry, warm Results Laboratory Results: 01/20/18 04:29 01/24/18 06:35 01/24/18 01/24/18 06:35 06:35 Sodium 137.6 Potassium 4.3 Chloride 96 L Carbon Dioxide 34 H Anion Gap 8 BUN 47 H Creatinine 0.62 Est GFR ( Amer) > 60 Est GFR (Non-Af Amer) > 60 Glucose 92 Calcium 9.7 Phosphorus 3.2 Magnesium 2.6 H 01/19/18 01/21/18 01/24/18 19:50 04:58 06:35 Troponin I 0.014 NT-Pro-B Natriuret Pep 4430 H 2680 H Impressions: Chest CT 01/21/18 06:00 IMPRESSION: INTERVAL IMPROVEMENT OF PREVIOUS IDENTIFIED PULMONARY EDEMA WITH MODERATE RIGHT-SIDED PLEURAL EFFUSION AND TRACE LEFT PLEURAL EFFUSION. ADDITIONAL CHRONIC CHANGES ABOVE. Chest X-Ray 01/22/18 00:00 IMPRESSION: STABLE APPEARANCE OF THE CHEST WITH PLEURAL EFFUSIONS AND AIRSPACE DISEASE. Assessment & Plan - Diagnosis (1) Atrial fibrillation with rapid ventricular response Is this a current diagnosis for this admission?: Yes Plan: stable at this time (2) CHF (congestive heart failure) Qualifiers: Heart failure type: diastolic Heart failure chronicity: acute on chronic Qualified Code(s): I50.33 - Acute on chronic diastolic (congestive) heart failure Is this a current diagnosis for this admission?: Yes Plan: as per cardiology (3) Pleural effusion Is this a current diagnosis for this admission?: Yes Plan: Patient is clinically stable and appears to have slight improvement (4) History of renal transplant Is this a current diagnosis for this admission?: Yes
[2018-01-24] MEDS: CHOLECALCIFEROL (D3) 1,000 UNIT TABLET PO SCH (10:37)
[2018-01-24] MEDS: ENOXAPARIN SODIUM INJ 40 MG/0.4 ML DISP.SYRIN SUBCUT SCH (10:37)
[2018-01-24] MEDS: LACTOBACILLUS ACIDOPHILUS 250 MG TAB PO SCH ×2 (10:37→17:48)
[2018-01-24] MEDS: CLOPIDOGREL BISULFATE 75 MG TABLET PO SCH (10:37)
[2018-01-24] MEDS: ASPIRIN 325 MG TABLET PO SCH (10:38)
[2018-01-24] MEDS: METOPROLOL TARTRATE 50 MG TABLET PO SCH ×2 (10:38→22:04)
[2018-01-24] MEDS: DIGOXIN 0.125 MG TABLET PO SCH (10:39)
[2018-01-24] MEDS: LOSARTAN POTASSIUM 25 MG TABLET PO SCH ×2 (10:39→22:05)
[2018-01-24] MEDS: FUROSEMIDE 20 MG TABLET PO SCH (10:39)
[2018-01-24] MEDS: CALCIUM CARBONATE 500 MG TABLET PO SCH (10:39)
[2018-01-24] MEDS: MAGNESIUM OXIDE 400 MG TABLET PO SCH (10:39)
[2018-01-24] MEDS: FAMOTIDINE 20 MG TABLET PO SCH ×2 (10:39→22:04)
[2018-01-24] MEDS: SULFAMETHOXAZOLE/TRIMETHOPRIM 800-160 MG TABLET PO SCH ×2 (10:39→17:48)
[2018-01-24] MEDS: PREDNISONE 1 MG TABLET PO SCH (10:41)
[2018-01-24] MEDS: PRIMIDONE 50 MG TABLET PO SCH ×2 (10:41→22:05)
[2018-01-24] MEDS: AZATHIOPRINE 50 MG TABLET PO SCH (10:44)
--- NOTE | 2018-01-24 12:56 | PDOC DISCHARGE SUMMARY ---
General - Admit/Disc Date/PCP Admission Date/Primary Care Provider: 01/19/18 17:[address] care [address] Micah Tovar Discharge Date: 01/24/18 - Discharge Diagnosis (1) Diastolic CHF, acute on chronic Is this a current diagnosis for this admission?: Yes Summary: Due to Afib RVR (2) Atrial fibrillation with rapid ventricular response Is this a current diagnosis for this admission?: Yes (3) Acute superficial venous thrombosis of left lower extremity Is this a current diagnosis for this admission?: Yes (4) History of renal transplant Is this a current diagnosis for this admission?: Yes (5) Pleural effusion Is this a current diagnosis for this admission?: Yes Summary: Secondary to diastolic CHF (6) DVT prophylaxis Is this a current diagnosis for this admission?: Yes (7) Full code status Is this a current diagnosis for this admission?: Yes (8) Moderate mitral regurgitation Is this a current diagnosis for this admission?: Yes (9) Moderate tricuspid regurgitation Is this a current diagnosis for this admission?: Yes - Additional Information Resuscitation Status: Full Code Discharge Diet: Cardiac Discharge Activity: Activity As Tolerated, Balance Activity w/Rest, Weigh Daily Prescriptions: Digoxin [Lanoxin 0.125 mg Tablet] 0.125 mg PO DAILY 30 Days #30 tablet Losartan Potassium [Cozaar 25 mg Tablet] 25 mg PO Q12 15 Days #30 tablet Home Medications: Aspirin [Aspirin 325 mg Tablet] 325 mg PO DAILY 01/19/18 Azathioprine [Imuran 50 mg Tablet] 25 mg PO SUTUTHSA@1000 01/19/18 Azathioprine [Imuran 50 mg Tablet] 50 mg PO MOWEFR@1000 01/19/18 Calcium Carbonate [Os-Matheus 500 mg Tablet (Oyster-Shell)] 500 mg PO DAILY Cholecalciferol (Vitamin D3) [Vitamin D3 2000 unit Tablet] 2,000 unit PO DAILY 01/19/18 Clopidogrel Bisulfate [Plavix 75 mg Tablet] 75 mg PO DAILY 01/19/18 Famotidine [Pepcid 20 mg Tablet] 20 mg PO Q12 01/19/18 Furosemide [Lasix 20 mg Tablet] 20 mg PO DAILY 01/19/18 Hydrocodone/Acetaminophen [[place] 5-325 mg Tablet] 1 tab PO Q4HP PRN 01/19/18 Isosorbide Mononitrate [Imdur 30 mg Tablet.er] 30 mg PO DAILY 01/19/18 Metoprolol Tartrate [Lopressor 25 mg Tablet] 50 mg PO Q12 01/19/18 Omeprazole 40 mg PO DAILY 01/19/18 Pravastatin Sodium [Pravachol] 40 mg PO DAILY 01/19/18 Prednisone [Deltasone 1 mg Tablet] 2 mg PO DAILY 01/19/18 Primidone [Mysoline 50 mg Tablet] 100 mg PO BID 01/19/18 Sulfamethoxazole/Trimethoprim [Bactrim 400-80 mg Tablet] 1 tab PO BID 01/19/18 Vit A/Vit C/Vit E/Zinc/Copper [Preservision Areds Softgel] 1 tab PO Q12 Digoxin [Lanoxin 0.125 mg Tablet] 0.125 mg PO DAILY 30 Days #30 tablet 01/24/18 Furosemide [Lasix 20 mg Tablet] 20 mg PO DAILY tablet 01/24/18 Lactobacillus Acidophilus [Bacid 250 mg Tablet] 500 mg PO BID tab 01/24/18 Losartan Potassium [Cozaar 25 mg Tablet] 25 mg PO Q12 15 Days #30 tablet Metoprolol Tartrate [Lopressor 50 mg Tablet] 50 mg PO Q12 tablet 01/24/18 History of Present Illness History of Present Illness: The patient is a very pleasant 87 year old female with past medical history of Kidney transplant History of [place], CAD A fib on Plavix and Aspirin Gonzalez's palsy Intentional tremor Dementia The patient lives at home with her daughter and was recently discharge home after being treated for dehydration and Afib RVR. She presented to the hospital on 01/19/18 for generalized weakness, nausea and dyspnea and was found to have Afib with RVR. and bilateral pleural effusions most likely due to diastolic CHF exacerbation secondary to uncontrolled A fib. This was managed by Dr. Byrd from the Cardiology service HR well controlled with Dig and Lopressor Not a candidate for anticoagulation due to advanced age and comorbidities. Doing much better and stable for discharge home. Had a recently diagnosed superficial R LE thrombus. BMP on 01/27/18 to monitor renal function on ARB+Bactrim. Follow up PCP, Cardiology and Nephrology in 1 week. Home health and Home PT will be ordered Hospital Course Hospital Course: As above Physical Exam Vital Signs: Temp Pulse Resp BP Pulse Ox 98.1 F 85 13 114/67 91 L 01/24/18 03:59 01/24/18 07:00 01/24/18 03:59 01/24/18 03:59 01/24/18 03:59 Intake & Output 01/23/18 01/24/18 01/25/18 06:59 06:59 06:59 Intake Total 1855 680 Output Total 1850 700 Balance 5 -20 Weight 48.6 kg 48.2 kg General appearance: PRESENT: no acute distress Respiratory exam: PRESENT: symmetrical, unlabored. ABSENT: wheezes Results Laboratory Results: 01/20/18 04:29 01/24/18 06:35 01/24/18 01/24/18 06:35 06:35 Sodium 137.6 Potassium 4.3 Chloride 96 L Carbon Dioxide 34 H Anion Gap 8 BUN 47 H Creatinine 0.62 Est GFR ( Amer) > 60 Est GFR (Non-Af Amer) > 60 Glucose 92 Calcium 9.7 Phosphorus 3.2 Magnesium 2.6 H 01/19/18 01/21/18 01/24/18 19:50 04:58 06:35 Troponin I 0.014 NT-Pro-B Natriuret Pep 4430 H 2680 H Impressions: Chest CT 01/21/18 06:00 IMPRESSION: INTERVAL IMPROVEMENT OF PREVIOUS IDENTIFIED PULMONARY EDEMA WITH MODERATE RIGHT-SIDED PLEURAL EFFUSION AND TRACE LEFT PLEURAL EFFUSION. ADDITIONAL CHRONIC CHANGES ABOVE. Chest X-Ray 01/22/18 00:00 IMPRESSION: STABLE APPEARANCE OF THE CHEST WITH PLEURAL EFFUSIONS AND AIRSPACE DISEASE. Qualifiers - * PATIENT BEING DISCHARGED WITH ANY OF THE FOLLOWING DIAGNOSIS: Heart Failure AK Pt discharged ACEI/ARBS?: Yes HF Pt being discharged on ACEI for LVEF less than 40%?: Yes HF Pt being discharged on ARBS for LVEF less than 40%?: Yes HF Pt with Afib discharged with Warfarin?: No Reason(s) for not prescribing Warfarin:: Medical Contraindication HF Pt discharged on evidence-based Beta Anmol:: Yes Plan Time Spent: Greater than 30 Minutes
--- NOTE | 2018-01-24 17:05 | PDOC PROGRESS REPORT ---
Subjective Progress Note for:: 01/24/18 Subjective:: 87 yr old female with Kidney transplant History of [place], CAD A fib on Plavix and Aspirin Gonzalez's palsy Intentional tremor Dementia the patient lives at home with her daughter and was recently discharge home after being treated for dehydration and Afib RVR. She presented to the hospital on 01/19/18 for generalized weakness, nausea and dyspnea and was found to have Afib with RVR and bilateral pleural effusions most likely due to diastolic CHF exacerbation secondary to uncontrolled A fib. Improved with diuretics and HR control. Ready and stable for discharge with home health and home PT and to follow up with PCP Nephrology and Cardiology as outpatient. The family were agreeable with discharge and we discussed plan of care and outpatient follow up this am. Later the nurse told does not agree with discharge because they state that on a prior admission they feel she was released too early and ended up back in the hospital. They have appealed the discharge. Reason For Visit: HEART FAILURE Physical Exam Vital Signs: Temp Pulse Resp BP Pulse Ox 98.1 F 78 13 114/67 91 L 01/24/18 03:59 01/24/18 14:00 01/24/18 03:59 01/24/18 03:59 01/24/18 03:59 Intake & Output 01/23/18 01/24/18 01/25/18 06:59 06:59 06:59 Intake Total 1855 680 Output Total 1850 700 Balance 5 -20 Weight 48.6 kg 48.2 kg General appearance: PRESENT: no acute distress Mouth exam: PRESENT: moist Respiratory exam: PRESENT: symmetrical, unlabored. ABSENT: crackles, wheezes Cardiovascular exam: PRESENT: irregular rhythm, systolic murmur GI/Abdominal exam: PRESENT: normal bowel sounds, soft. ABSENT: tenderness Rectal exam: PRESENT: deferred Neurological exam: PRESENT: alert, awake, oriented to person, oriented to place Results Laboratory Results: 01/20/18 04:29 01/24/18 06:35 01/24/18 01/24/18 06:35 06:35 Sodium 137.6 Potassium 4.3 Chloride 96 L Carbon Dioxide 34 H Anion Gap 8 BUN 47 H Creatinine 0.62 Est GFR ( Amer) > 60 Est GFR (Non-Af Amer) > 60 Glucose 92 Calcium 9.7 Phosphorus 3.2 Magnesium 2.6 H 01/19/18 01/21/1801/24/18 19:50 04:58 06:35 Troponin I 0.014 NT-Pro-B Natriuret Pep 4430 H 2680 H Impressions: Chest CT 01/21/18 06:00 IMPRESSION: INTERVAL IMPROVEMENT OF PREVIOUS IDENTIFIED PULMONARY EDEMA WITH MODERATE RIGHT-SIDED PLEURAL EFFUSION AND TRACE LEFT PLEURAL EFFUSION. ADDITIONAL CHRONIC CHANGES ABOVE. Chest X-Ray 01/22/18 00:00 IMPRESSION: STABLE APPEARANCE OF THE CHEST WITH PLEURAL EFFUSIONS AND AIRSPACE DISEASE. Assessment & Plan - Diagnosis (1) Diastolic CHF, acute on chronic Is this a current diagnosis for this admission?: Yes Plan: Continue Lasix, monitor kidney function and intake and output. (2) Atrial fibrillation with rapid ventricular response Is this a current diagnosis for this admission?: Yes Plan: Continue Metoprolol, Digoxin, ASA and Plavix Continue to monitor. Not on anticoagulation due to advanced age and fall risk. (3) Acute superficial venous thrombosis of left lower extremity Is this a current diagnosis for this admission?: Yes Plan: Seen on recent admission, no indication for anticoagulation. No pain or swelling of lower extremity (4) History of renal transplant Is this a current diagnosis for this admission?: Yes Plan: Continue outpatient meds. Monitor renal function. (5) Pleural effusion Is this a current diagnosis for this admission?: Yes Plan: Likely transudative given CHF exacerbation. Pulmonology consult requested for possible thoracentesis. (6) DVT prophylaxis Is this a current diagnosis for this admission?: Yes Plan: Lovenox s/c (7) Full code status Is this a current diagnosis for this admission?: Yes (8) Moderate mitral regurgitation Is this a current diagnosis for this admission?: Yes Plan: Continue medical management (9) Moderate tricuspid regurgitation Is this a current diagnosis for this admission?: Yes Plan: medical management - Time Time Spent with patient: 35 or more minutes
[2018-01-24] MEDS: ATORVASTATIN CALCIUM 10 MG TABLET PO SCH (22:05)
[2018-01-24] MEDS: ISOSORBIDE MONONITRATE 30 MG TAB.ER.24H PO SCH (22:05)
[2018-01-25] MEDS: LANSOPRAZOLE 30 MG TAB.RAP.DR PO SCH (05:47)
[2018-01-25] MEDS: FAMOTIDINE 20 MG TABLET PO SCH ×2 (09:33→23:14)
[2018-01-25] MEDS: CLOPIDOGREL BISULFATE 75 MG TABLET PO SCH (09:33)
[2018-01-25] MEDS: LACTOBACILLUS ACIDOPHILUS 250 MG TAB PO SCH ×2 (09:33→17:49)
[2018-01-25] MEDS: MAGNESIUM OXIDE 400 MG TABLET PO SCH (09:33)
[2018-01-25] MEDS: CALCIUM CARBONATE 500 MG TABLET PO SCH (09:34)
[2018-01-25] MEDS: ASPIRIN 325 MG TABLET PO SCH (09:34)
[2018-01-25] MEDS: CHOLECALCIFEROL (D3) 1,000 UNIT TABLET PO SCH (09:34)
[2018-01-25] MEDS: ENOXAPARIN SODIUM INJ 40 MG/0.4 ML DISP.SYRIN SUBCUT SCH (09:36)
[2018-01-25] MEDS: FUROSEMIDE 20 MG TABLET PO SCH (09:37)
[2018-01-25] MEDS: AZATHIOPRINE 50 MG TABLET PO SCH (09:37)
[2018-01-25] MEDS: METOPROLOL TARTRATE 50 MG TABLET PO SCH ×2 (09:38→23:15)
[2018-01-25] MEDS: DIGOXIN 0.125 MG TABLET PO SCH (09:38)
[2018-01-25] MEDS: LOSARTAN POTASSIUM 25 MG TABLET PO SCH ×2 (09:38→23:15)
[2018-01-25] MEDS: PRIMIDONE 50 MG TABLET PO SCH ×2 (09:39→23:17)
[2018-01-25] MEDS: PREDNISONE 1 MG TABLET PO SCH (09:39)
[2018-01-25] MEDS: SULFAMETHOXAZOLE/TRIMETHOPRIM 800-160 MG TABLET PO SCH ×2 (09:39→17:49)
--- NOTE | 2018-01-25 12:19 | PDOC PROGRESS REPORT ---
Subjective Progress Note for:: 01/24/18 Subjective:: Patient was seen on morning rounds but somehow dictation was missed. Patient is denying any specific complaints. Patient seems to be doing better with gradual improvement. Pt is denying any chest arm or neck discomfort. Patient denying any PND, orthopnea. Patient denied any sustained palpitations, dizziness, syncope, near syncope. Patient denying any fever chills. Patient denying any other significant discomfort. Patient's telemetry strips were reviewed. Patient is maintaining atrial fibrillation without any ventricular dysrhythmias. Heart rate under reasonable control. Review of systems: Rest review of systems negative. Medications: Medications have been reviewed. Reason For Visit: HEART FAILURE Physical Exam Vital Signs: Temp Pulse Resp BP Pulse Ox 97.6 F 72 12 126/69 H 96 01/25/18 07:56 01/25/18 07:56 01/25/18 07:56 01/25/18 07:56 01/25/18 07:56 Intake & Output 01/24/18 01/25/18 01/26/18 06:59 06:59 06:59 Intake Total 680 930 Output Total 700 1000 Balance -20 -70 Weight 48.2 kg 48.2 kg Exam: GENERAL: Thin built and in no acute distress. Alert and oriented x3 HEAD: Atraumatic, normocephalic. EYES: Pupils equal round and reactive to light, extraocular movements intact, sclera anicteric, conjunctiva are normal. ENT: TMs normal, nares patent, oropharynx clear without exudates. Moist mucous membranes. No oral ulcerations or bleeding gums noted NECK: supple without lymphadenopathy. Trachea is central. No cervical or axillary lymphadenopathy noted. Carotids are 2+, JVD WNL LUNGS: Respiration seems nonlabored, no significant accessory muscle action noted. Few bibasilar fine crackles are noted. No wheezes rales or rhonchi noted. No significant dullness noted on percussion. CHEST: Palpation of the chest wall shows no significant chest wall tenderness. 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 ABDOMEN: Soft, no significant tenderness appreciated, normoactive bowel sounds. No guarding, no rebound. No rigidity noted . No masses appreciated. EXTREMITIES: Pedal pulses are 1-2+, no calf tenderness noted. No clubbing or cyanosis. Trace to 1+ pedal edema noted NEUROLOGICAL: Focused neurological exam showed no significant neurologic deficit. Normal speech, no focal weakness appreciated. PSYCH: Normal mood, normal affect. Judgment and insight within normal limits. SKIN: No significant ecchymosis, skin is noted to be warm. MUSCULOSKELETAL EXAM: No significant acute joint swelling noted. Results Laboratory Results: 01/20/18 04:29 01/24/18 06:35 01/19/18 01/21/18 01/24/18 19:50 04:58 06:35 Troponin I 0.014 NT-Pro-B Natriuret Pep 4430 H 2680 H EKG Comments: Telemetry strip shows atrial fibrillation with controlled ventricular response. Impressions: Chest CT 01/21/18 06:00 IMPRESSION: INTERVAL IMPROVEMENT OF PREVIOUS IDENTIFIED PULMONARY EDEMA WITH MODERATE RIGHT-SIDED PLEURAL EFFUSION AND TRACE LEFT PLEURAL EFFUSION. ADDITIONAL CHRONIC CHANGES ABOVE. Chest X-Ray 01/22/18 00:00 IMPRESSION: STABLE APPEARANCE OF THE CHEST WITH PLEURAL EFFUSIONS AND AIRSPACE DISEASE. Assessment & Plan - Diagnosis (1) Atrial fibrillation with rapid ventricular response Is this a current diagnosis for this admission?: Yes (2) CHF (congestive heart failure) Qualifiers: Heart failure type: diastolic Heart failure chronicity: acute on chronic Qualified Code(s): I50.33 - Acute on chronic diastolic (congestive) heart failure Is this a current diagnosis for this admission?: Yes (3) Moderate mitral regurgitation Is this a current diagnosis for this admission?: Yes (4) Moderate tricuspid regurgitation Is this a current diagnosis for this admission?: Yes (5) Pleural effusion Is this a current diagnosis for this admission?: Yes - Notes Notes: Atrial fibrillation with rapid ventricular response: This was noted on admission. Currently ventricular response is well controlled. No evidence of ventricular dysrhythmia noted. CHF: Chest x-ray from third reviewed. It shows mild CHF with small bilateral pleural effusion. Clinically however do not see much evidence of fluid overload. However recommend continuing current dose of diuretics. Valvular heart disease: Currently is stable. No need for operative intervention. Pleural effusion: This seems improving General debility: Patient has significant general debility. Patient will benefit from physical therapy and general strengthening exercises. - Time Time with patient: 15-25 minutes - CODE STATUS was discussed, patient remains full code. Multiple medical problems were addressed. More than 50% of the time spent coordinating care, discussing management plans with involved caregivers. Management plans discussed with involved personnels. Medical decision making was of moderate to high complexity, patient's has multiple comorbidities. Medications reviewed and adjusted accordingly: Yes
--- NOTE | 2018-01-25 12:24 | PDOC PROGRESS REPORT ---
Subjective Progress Note for:: 01/25/18 Subjective:: Patient claims to have ambulated in the hallway. Patient is denying any specific complaints. Patient seems to be doing better with gradual improvement. Pt is denying any chest arm or neck discomfort. Patient denying any PND, orthopnea. Patient denied any sustained palpitations, dizziness, syncope, near syncope. Patient denying any fever chills. Patient denying any other significant discomfort. Patient's telemetry strips were reviewed. Patient is maintaining atrial fibrillation without any ventricular dysrhythmias. Heart rate under reasonable control. Review of systems: Rest review of systems negative. Medications: Medications have been reviewed. Reason For Visit: HEART FAILURE Physical Exam Vital Signs: Temp Pulse Resp BP Pulse Ox 97.6 F 72 12 126/69 H 96 01/25/18 07:56 01/25/18 07:56 01/25/18 07:56 01/25/18 07:56 01/25/18 07:56 Intake & Output 01/24/18 01/25/18 01/26/18 06:59 06:59 06:59 Intake Total 680 930 Output Total 700 1000 Balance -20 -70 Weight 48.2 kg 48.2 kg Exam: GENERAL: well-nourished and in no acute distress. Alert and oriented x3 HEAD: Atraumatic, normocephalic. EYES: Pupils equal round and reactive to light, extraocular movements intact, sclera anicteric, conjunctiva are normal. ENT: TMs normal, nares patent, oropharynx clear without exudates. Moist mucous membranes. No oral ulcerations or bleeding gums noted NECK: supple without lymphadenopathy. Trachea is central. No cervical or axillary lymphadenopathy noted. Carotids are 2+, JVD WNL LUNGS: Respiration seems nonlabored, no significant accessory muscle action noted. Few bibasilar crackles are noted. No wheezes rales or rhonchi noted. No significant dullness noted on percussion. CHEST: Palpation of the chest wall shows no significant chest wall tenderness. HEART: [place] [employer]IC[employer] DECK, No PSH, 2/6 PAPA aortic area, 1/6 ocasio systolic murmur mitral area , no rubs, no gallops. ABDOMEN: Soft, no significant tenderness appreciated, normoactive bowel sounds. No guarding, no rebound. No rigidity noted . No masses appreciated. EXTREMITIES: Pedal pulses are 1-2+, no calf tenderness noted. No clubbing or cyanosis. Trace pedal edema noted NEUROLOGICAL: Focused neurological exam showed no significant neurologic deficit. Normal speech, no focal weakness appreciated. PSYCH: Normal mood, normal affect. Judgment and insight within normal limits. SKIN: No significant ecchymosis, skin is noted to be warm. MUSCULOSKELETAL EXAM: No significant acute joint swelling noted. Results Laboratory Results: 01/20/18 04:29 01/24/18 06:35 01/19/18 01/21/18 01/24/18 19:50 04:58 06:35 Troponin I 0.014 NT-Pro-B Natriuret Pep 4430 H 2680 H EKG Comments: Telemetry strips were reviewed. Shows patient in chronic atrial fibrillation with controlled heart rate response. Impressions: Chest CT 01/21/18 06:00 IMPRESSION: INTERVAL IMPROVEMENT OF PREVIOUS IDENTIFIED PULMONARY EDEMA WITH MODERATE RIGHT-SIDED PLEURAL EFFUSION AND TRACE LEFT PLEURAL EFFUSION. ADDITIONAL CHRONIC CHANGES ABOVE. Chest X-Ray 01/22/18 00:00 IMPRESSION: STABLE APPEARANCE OF THE CHEST WITH PLEURAL EFFUSIONS AND AIRSPACE DISEASE. Assessment & Plan - Diagnosis (1) Atrial fibrillation with rapid ventricular response Is this a current diagnosis for this admission?: Yes (2) CHF (congestive heart failure) Qualifiers: Heart failure type: diastolic Heart failure chronicity: acute on chronic Qualified Code(s): I50.33 - Acute on chronic diastolic (congestive) heart failure Is this a current diagnosis for this admission?: Yes (3) Moderate mitral regurgitation Is this a current diagnosis for this admission?: Yes (4) Moderate tricuspid regurgitation Is this a current diagnosis for this admission?: Yes (5) Pleural effusion Is this a current diagnosis for this admission?: Yes - Notes Notes: Patient's medical regimen was reviewed. She is noted to be on very good medical regimen. I feel that she is stable from cardiac standpoint. Therefore will sign off. Please reconsult if needed. Will be happy to follow her as an outpatient. Patient may benefit from home health nurse visits. Atrial fibrillation with rapid ventricular response: This was noted on admission. Currently ventricular response is well controlled. All telemetry strips reviewed. No significant ventricular dysrhythmias noted. CHF: Clinically do not see much evidence of fluid overload. However recommend continuing current dose of diuretics. Valvular heart disease: Currently is stable. No need for operative intervention. Pleural effusion: This seems improving General debility: Patient has significant general debility. Patient will benefit from physical therapy and general strengthening exercises. - Time Time with patient: 15-25 minutes - CODE STATUS was discussed, patient remains full code. Multiple medical problems were addressed. More than 50% of the time spent coordinating care, discussing management plans with involved caregivers. Management plans discussed with involved personnels. Medical decision making was of moderate to high complexity, patient's has multiple comorbidities. Medications reviewed and adjusted accordingly: Yes
--- NOTE | 2018-01-25 15:18 | PDOC PROGRESS REPORT ---
Subjective Progress Note for:: 01/25/18 Subjective:: denies problem with breathing Reason For Visit: HEART FAILURE Physical Exam Vital Signs: Temp Pulse Resp BP Pulse Ox 97.6 F 72 12 126/69 H 96 01/25/18 07:56 01/25/18 07:56 01/25/18 07:56 01/25/18 07:56 01/25/18 07:56 Intake & Output 01/24/18 01/25/18 01/26/18 06:59 06:59 06:59 Intake Total 680 930 Output Total 700 1000 Balance -20 -70 Weight 48.2 kg 48.2 kg General appearance: PRESENT: no acute distress, cooperative, disheveled, thin Head exam: PRESENT: atraumatic, normocephalic Eye exam: PRESENT: conjunctiva pale, EOMI. ABSENT: nystagmus, periorbital swelling, scleral icterus Mouth exam: PRESENT: dry mucosa, neck supple, tongue midline Neck exam: ABSENT: carotid bruit, JVD, lymphadenopathy, thyromegaly, tracheal deviation, tracheostomy Respiratory exam: PRESENT: decreased breath sounds, prolonged expiratory phas, rales, rhonchi. ABSENT: retraction, stridor Cardiovascular exam: PRESENT: RRR, +S1, +S2 Pulses: PRESENT: normal radial pulses GI/Abdominal exam: PRESENT: normal bowel sounds, soft Extremities exam: ABSENT: calf tenderness, clubbing, joint swelling Musculoskeletal exam: ABSENT: deformity, dislocation Neurological exam: PRESENT: awake, oriented to person, oriented to place Psychiatric exam: PRESENT: flat affect Skin exam: PRESENT: dry, warm Results Laboratory Results: 01/20/18 04:29 01/24/18 06:35 01/19/18 01/21/18 01/24/18 19:50 04:58 06:35 Troponin I 0.014 NT-Pro-B Natriuret Pep 4430 H 2680 H Impressions: Chest CT 01/21/18 06:00 IMPRESSION: INTERVAL IMPROVEMENT OF PREVIOUS IDENTIFIED PULMONARY EDEMA WITH MODERATE RIGHT-SIDED PLEURAL EFFUSION AND TRACE LEFT PLEURAL EFFUSION. ADDITIONAL CHRONIC CHANGES ABOVE. Chest X-Ray 01/22/18 00:00 IMPRESSION: STABLE APPEARANCE OF THE CHEST WITH PLEURAL EFFUSIONS AND AIRSPACE DISEASE. Assessment & Plan - Diagnosis (1) Atrial fibrillation with rapid ventricular response Is this a current diagnosis for this admission?: Yes Plan: stable at this time (2) CHF (congestive heart failure) Qualifiers: Heart failure type: diastolic Heart failure chronicity: acute on chronic Qualified Code(s): I50.33 - Acute on chronic diastolic (congestive) heart failure Is this a current diagnosis for this admission?: Yes Plan: as per cardiology (3) Pleural effusion Is this a current diagnosis for this admission?: Yes Plan: Patient is clinically stable and appears to have slight improvement (4) History of renal transplant Is this a current diagnosis for this admission?: Yes
--- NOTE | 2018-01-25 15:39 | PDOC PROGRESS REPORT ---
Subjective Progress Note for:: 01/25/18 Subjective:: 87 yr old female with Kidney transplant History of [place], CAD A fib on Plavix and Aspirin Gonzalez's palsy Intentional tremor Dementia The patient lives at home with her daughter and was recently discharge home after being treated for dehydration and Afib RVR. She presented to the hospital on 01/19/18 for generalized weakness, nausea and dyspnea and was found to have Afib with RVR and bilateral pleural effusions most likely due to diastolic CHF exacerbation secondary to uncontrolled A fib. Improved with diuretics and HR control. Ready and stable for discharge with home health and home PT and to follow up with PCP Nephrology and Cardiology as outpatient. The family were agreeable with discharge and we discussed plan of care and outpatient follow on 01/24/18 am Later that day the nurse reported that they not agree with discharge because they state that on a prior admission they feel she was released too early and ended up back in the hospital. They have appealed the discharge and we are awaiting the final decision. Sats on room air at rest were 95% and on room air with ambulation were 96% on January 25, 2018. The patient has no complaints and feels well. She is sitting up in the chair. Reason For Visit: HEART FAILURE Physical Exam Vital Signs: Temp Pulse Resp BP Pulse Ox 97.6 F 69 12 126/69 H 96 01/25/18 07:56 01/25/18 14:00 01/25/18 07:56 01/25/18 07:56 01/25/18 07:56 Intake & Output 01/24/18 01/25/18 01/26/18 06:59 06:59 06:59 Intake Total 680 930 Output Total 700 1000 Balance -20 -70 Weight 48.2 kg 48.2 kg General appearance: PRESENT: no acute distress Ear exam: PRESENT: normal external ear exam Mouth exam: PRESENT: moist Neck exam: ABSENT: tracheal deviation Respiratory exam: PRESENT: symmetrical, unlabored. ABSENT: wheezes Cardiovascular exam: PRESENT: RRR GI/Abdominal exam: PRESENT: normal bowel sounds, soft. ABSENT: tenderness Rectal exam: PRESENT: deferred Extremities exam: ABSENT: pedal edema Neurological exam: PRESENT: alert, awake, oriented to person, oriented to place , oriented to time, oriented to situation Psychiatric exam: PRESENT: appropriate affect Results Laboratory Results: 01/20/18 04:29 01/24/18 06:35 01/19/18 01/21/18 01/24/18 19:50 04:58 06:35 Troponin I 0.014 NT-Pro-B Natriuret Pep 4430 H 2680 H Impressions: Chest CT 01/21/18 06:00 IMPRESSION: INTERVAL IMPROVEMENT OF PREVIOUS IDENTIFIED PULMONARY EDEMA WITH MODERATE RIGHT-SIDED PLEURAL EFFUSION AND TRACE LEFT PLEURAL EFFUSION. ADDITIONAL CHRONIC CHANGES ABOVE. Chest X-Ray 01/22/18 00:00 IMPRESSION: STABLE APPEARANCE OF THE CHEST WITH PLEURAL EFFUSIONS AND AIRSPACE DISEASE. Assessment & Plan - Diagnosis (1) Diastolic CHF, acute on chronic Is this a current diagnosis for this admission?: Yes Plan: Continue Lasix, monitor kidney function and intake and output. (2) Atrial fibrillation with rapid ventricular response Is this a current diagnosis for this admission?: Yes Plan: Continue Metoprolol, Digoxin, ASA and Plavix Not on anticoagulation due to advanced age and fall risk. (3) Acute superficial venous thrombosis of left lower extremity Is this a current diagnosis for this admission?: Yes Plan: Seen on recent admission, no indication for anticoagulation. No pain or swelling of lower extremity (4) History of renal transplant Is this a current diagnosis for this admission?: Yes Plan: Continue outpatient meds. (5) Pleural effusion Is this a current diagnosis for this admission?: Yes Plan: Resolved with diuresis. (6) DVT prophylaxis Is this a current diagnosis for this admission?: Yes Plan: Lovenox s/c (7) Full code status Is this a current diagnosis for this admission?: Yes (8) Moderate mitral regurgitation Is this a current diagnosis for this admission?: Yes Plan: Continue medical management (9) Moderate tricuspid regurgitation Is this a current diagnosis for this admission?: Yes Plan: medical management - Time Time Spent with patient: 25-34 minutes
[2018-01-25] MEDS: ATORVASTATIN CALCIUM 10 MG TABLET PO SCH (23:14)
[2018-01-25] MEDS: ISOSORBIDE MONONITRATE 30 MG TAB.ER.24H PO SCH (23:15)
[2018-01-26] MEDS: LANSOPRAZOLE 30 MG TAB.RAP.DR PO SCH (05:15)
[2018-01-26] MEDS: ENOXAPARIN SODIUM INJ 40 MG/0.4 ML DISP.SYRIN SUBCUT SCH (10:06)
[2018-01-26] MEDS: MAGNESIUM OXIDE 400 MG TABLET PO SCH (10:06)
[2018-01-26] MEDS: CLOPIDOGREL BISULFATE 75 MG TABLET PO SCH (10:32)
[2018-01-26] MEDS: FUROSEMIDE 20 MG TABLET PO SCH (10:32)
[2018-01-26] MEDS: ASPIRIN 325 MG TABLET PO SCH (10:32)
[2018-01-26] MEDS: CALCIUM CARBONATE 500 MG TABLET PO SCH (10:32)
[2018-01-26] MEDS: LACTOBACILLUS ACIDOPHILUS 250 MG TAB PO SCH ×2 (10:32→18:05)
[2018-01-26] MEDS: PREDNISONE 1 MG TABLET PO SCH (10:33)
[2018-01-26] MEDS: SULFAMETHOXAZOLE/TRIMETHOPRIM 800-160 MG TABLET PO SCH ×2 (10:33→18:05)
[2018-01-26] MEDS: CHOLECALCIFEROL (D3) 1,000 UNIT TABLET PO SCH (10:33)
[2018-01-26] MEDS: FAMOTIDINE 20 MG TABLET PO SCH ×2 (10:33→21:20)
[2018-01-26] MEDS: PRIMIDONE 50 MG TABLET PO SCH ×2 (10:33→21:20)
[2018-01-26] MEDS: AZATHIOPRINE 50 MG TABLET PO SCH (10:33)
[2018-01-26] MEDS: LOSARTAN POTASSIUM 25 MG TABLET PO SCH ×2 (10:33→21:21)
[2018-01-26] MEDS: DIGOXIN 0.125 MG TABLET PO SCH (10:34)
[2018-01-26] MEDS: METOPROLOL TARTRATE 50 MG TABLET PO SCH ×2 (10:34→21:21)
--- NOTE | 2018-01-26 11:57 | PDOC PROGRESS REPORT ---
Subjective Progress Note for:: 01/26/18 Subjective:: denies problem with breathing Reason For Visit: HEART FAILURE Physical Exam Vital Signs: Temp Pulse Resp BP Pulse Ox 97.7 F 78 20 115/61 100 01/25/18 23:00 01/26/18 07:00 01/25/18 23:00 01/25/18 23:00 01/25/18 23:00 Intake & Output 01/25/18 01/26/18 01/27/18 06:59 06:59 06:59 Intake Total 930 844 Output Total 1000 950 Balance -70 -106 Weight 48.2 kg 49.5 kg General appearance: PRESENT: no acute distress, cooperative, disheveled, thin Head exam: PRESENT: atraumatic, normocephalic Eye exam: PRESENT: conjunctiva pale, EOMI. ABSENT: nystagmus, periorbital swelling, scleral icterus Mouth exam: PRESENT: dry mucosa, neck supple, tongue midline Neck exam: ABSENT: carotid bruit, JVD, lymphadenopathy, thyromegaly, tracheal deviation, tracheostomy Respiratory exam: PRESENT: decreased breath sounds, prolonged expiratory phas, rhonchi, unlabored. ABSENT: rales, retraction, stridor Cardiovascular exam: PRESENT: RRR, +S1, +S2 Pulses: PRESENT: normal radial pulses GI/Abdominal exam: PRESENT: normal bowel sounds, soft Extremities exam: ABSENT: calf tenderness, clubbing, joint swelling Musculoskeletal exam: ABSENT: deformity, dislocation Neurological exam: PRESENT: awake, oriented to person, oriented to place Psychiatric exam: PRESENT: normal mood Skin exam: PRESENT: dry, warm Results Laboratory Results: 01/20/18 04:29 01/24/18 06:35 01/19/18 01/21/18 01/24/18 19:50 04:58 06:35 Troponin I 0.014 NT-Pro-B Natriuret Pep 4430 H 2680 H Impressions: Chest CT 01/21/18 06:00 IMPRESSION: INTERVAL IMPROVEMENT OF PREVIOUS IDENTIFIED PULMONARY EDEMA WITH MODERATE RIGHT-SIDED PLEURAL EFFUSION AND TRACE LEFT PLEURAL EFFUSION. ADDITIONAL CHRONIC CHANGES ABOVE. Chest X-Ray 01/22/18 00:00 IMPRESSION: STABLE APPEARANCE OF THE CHEST WITH PLEURAL EFFUSIONS AND AIRSPACE DISEASE. Assessment & Plan - Diagnosis (1) Atrial fibrillation with rapid ventricular response Is this a current diagnosis for this admission?: Yes Plan: stable (2) CHF (congestive heart failure) Qualifiers: Heart failure type: diastolic Heart failure chronicity: acute on chronic Qualified Code(s): I50.33 - Acute on chronic diastolic (congestive) heart failure Is this a current diagnosis for this admission?: Yes Plan: as per cardiology (3) Pleural effusion Is this a current diagnosis for this admission?: Yes Plan: Patient is clinically stable and appears to have slight improvement (4) History of renal transplant Is this a current diagnosis for this admission?: Yes
[2018-01-26] MEDS ORDERED: POLYETHYLENE GLYCOL 3350 POWDER 17 GM/1 PACKET PO PRN (12:46)
[2018-01-26] MEDS ORDERED: BISACODYL 10 MG SUPP.RECT PR ONE (13:30)
--- NOTE | 2018-01-26 14:14 | PDOC PROGRESS REPORT ---
Subjective Progress Note for:: 01/26/18 Subjective:: Patient seen resting in bed. Her grandson is at the bedside. She denies any chest pain, shortness of breath or dyspnea. She denies any nausea, vomiting or abdominal pain. She denies any fever or chills overnight. She denies any significant arthralgias or myalgias. Remaining review of systems are negative. Reason For Visit: HEART FAILURE Physical Exam Vital Signs: Temp Pulse Resp BP Pulse Ox 97.3 F 87 20 106/59 L 96 01/26/18 11:33 01/26/18 11:33 01/26/18 11:33 01/26/18 11:33 01/26/18 11:33 Intake & Output 01/25/18 01/26/18 01/27/18 06:59 06:59 06:59 Intake Total 930 844 Output Total 1000 950 Balance -70 -106 Weight 48.2 kg 49.5 kg General appearance: PRESENT: no acute distress, thin, well-developed Head exam: PRESENT: atraumatic, normocephalic Eye exam: PRESENT: conjunctiva pink, EOMI, PERRLA. ABSENT: scleral icterus Ear exam: PRESENT: normal external ear exam Mouth exam: PRESENT: moist, neck supple, tongue midline Teeth exam: PRESENT: edentulous Neck exam: ABSENT: carotid bruit, JVD, lymphadenopathy, thyromegaly Respiratory exam: PRESENT: clear to auscultation funmi, symmetrical, unlabored Cardiovascular exam: PRESENT: RRR. ABSENT: diastolic murmur, rubs, systolic murmur Pulses: PRESENT: normal dorsalis pedis pul Vascular exam: PRESENT: normal capillary refill GI/Abdominal exam: PRESENT: normal bowel sounds, soft. ABSENT: distended, guarding, mass, organolmegaly, rebound, tenderness Rectal exam: PRESENT: deferred Extremities exam: PRESENT: full ROM. ABSENT: calf tenderness, clubbing, pedal edema Musculoskeletal exam: PRESENT: ambulatory, full ROM, normal inspection Neurological exam: PRESENT: alert, awake, oriented to person, oriented to place , oriented to time, oriented to situation, CN II-XII grossly intact. ABSENT: motor sensory deficit Psychiatric exam: PRESENT: appropriate affect, normal mood. ABSENT: homicidal ideation, suicidal ideation Skin exam: PRESENT: dry, intact, warm. ABSENT: cyanosis, rash Results Laboratory Results: 01/20/18 04:29 01/24/18 06:35 01/19/18 01/21/18 01/24/18 19:50 04:58 06:35 Troponin I 0.014 NT-Pro-B Natriuret Pep 4430 H 2680 H Impressions: Chest CT 01/21/18 06:00 IMPRESSION: INTERVAL IMPROVEMENT OF PREVIOUS IDENTIFIED PULMONARY EDEMA WITH MODERATE RIGHT-SIDED PLEURAL EFFUSION AND TRACE LEFT PLEURAL EFFUSION. ADDITIONAL CHRONIC CHANGES ABOVE. Chest X-Ray 01/22/18 00:00 IMPRESSION: STABLE APPEARANCE OF THE CHEST WITH PLEURAL EFFUSIONS AND AIRSPACE DISEASE. Assessment & Plan - Diagnosis (1) Diastolic CHF, acute on chronic Is this a current diagnosis for this admission?: Yes Plan: Patient appears to be euvolemic at the present time. (2) Moderate mitral regurgitation Is this a current diagnosis for this admission?: Yes (3) Moderate tricuspid regurgitation Is this a current diagnosis for this admission?: Yes (4) Underweight Is this a current diagnosis for this admission?: Yes Plan: Continue nutritional supplements. (5) Atrial fibrillation with rapid ventricular response Is this a current diagnosis for this admission?: Yes Plan: Resolved. She is sinus rhythm the present time. She is intermittently A. fib but not on anticoagulation due to advanced age and fall risk (6) Pleural effusion Is this a current diagnosis for this admission?: Yes Plan: Chest x-ray improved with diuresis continue current medication (7) History of renal transplant Is this a current diagnosis for this admission?: Yes Plan: Continue home - Time Time Spent with patient: 25-34 minutes Total Critical Time (Minutes): 20 Anticipated discharge: Home with Homehealth
[2018-01-26] MEDS: DOCUSATE SODIUM 100 MG CAPSULE PO SCH (18:05)
[2018-01-26] MEDS: ATORVASTATIN CALCIUM 10 MG TABLET PO SCH (21:21)
[2018-01-26] MEDS: ISOSORBIDE MONONITRATE 30 MG TAB.ER.24H PO SCH (21:21)
[2018-01-27] MEDS: LANSOPRAZOLE 30 MG TAB.RAP.DR PO SCH (05:45)
[2018-01-27] MEDS: MAGNESIUM OXIDE 400 MG TABLET PO SCH (09:35)
[2018-01-27] MEDS: SULFAMETHOXAZOLE/TRIMETHOPRIM 800-160 MG TABLET PO SCH (09:52)
[2018-01-27] MEDS: ASPIRIN 325 MG TABLET PO SCH (09:52)
[2018-01-27] MEDS: CALCIUM CARBONATE 500 MG TABLET PO SCH (09:53)
[2018-01-27] MEDS: CLOPIDOGREL BISULFATE 75 MG TABLET PO SCH (09:53)
[2018-01-27] MEDS: FUROSEMIDE 20 MG TABLET PO SCH (09:53)
[2018-01-27] MEDS: PREDNISONE 1 MG TABLET PO SCH (09:53)
[2018-01-27] MEDS: METOPROLOL TARTRATE 50 MG TABLET PO SCH (09:53)
[2018-01-27] MEDS: DOCUSATE SODIUM 100 MG CAPSULE PO SCH (09:53)
[2018-01-27] MEDS: PRIMIDONE 50 MG TABLET PO SCH (09:53)
[2018-01-27] MEDS: AZATHIOPRINE 50 MG TABLET PO SCH (09:53)
[2018-01-27] MEDS: LACTOBACILLUS ACIDOPHILUS 250 MG TAB PO SCH (09:53)
[2018-01-27] MEDS: FAMOTIDINE 20 MG TABLET PO SCH (09:53)
[2018-01-27] MEDS: CHOLECALCIFEROL (D3) 1,000 UNIT TABLET PO SCH (09:53)
[2018-01-27] MEDS: DIGOXIN 0.125 MG TABLET PO SCH (09:53)
[2018-01-27] MEDS: ENOXAPARIN SODIUM INJ 40 MG/0.4 ML DISP.SYRIN SUBCUT SCH (09:54)
--- NOTE | 2018-01-27 10:54 | PDOC PROGRESS REPORT ---
Subjective Progress Note for:: 01/27/18 Subjective:: denies problem with breathing Reason For Visit: HEART FAILURE Physical Exam Vital Signs: Temp Pulse Resp BP Pulse Ox 97.5 F 76 18 118/70 94 01/27/18 07:36 01/27/18 07:36 01/27/18 07:36 01/27/18 07:36 01/27/18 07:36 Intake & Output 01/26/18 01/27/18 01/28/18 06:59 06:59 06:59 Intake Total 844 1041 Output Total 950 Balance -106 1041 Weight 49.5 kg 49 kg General appearance: PRESENT: no acute distress, cooperative, disheveled, hard of hearing Head exam: PRESENT: atraumatic, normocephalic Eye exam: PRESENT: conjunctiva pale, EOMI. ABSENT: nystagmus, periorbital swelling, scleral icterus Mouth exam: PRESENT: moist, neck supple, tongue midline Neck exam: ABSENT: carotid bruit, JVD, lymphadenopathy, thyromegaly, tracheal deviation, tracheostomy Respiratory exam: PRESENT: decreased breath sounds, prolonged expiratory phas, rhonchi, unlabored. ABSENT: rales, retraction, stridor, tachypnea Cardiovascular exam: PRESENT: irregular rhythm Pulses: PRESENT: normal radial pulses GI/Abdominal exam: PRESENT: normal bowel sounds, soft Extremities exam: ABSENT: calf tenderness, clubbing Musculoskeletal exam: ABSENT: deformity, dislocation Neurological exam: PRESENT: alert, awake Psychiatric exam: PRESENT: normal mood Skin exam: PRESENT: dry, warm Results Laboratory Results: 01/20/18 04:29 01/24/18 06:35 01/19/18 01/21/18 01/24/18 19:50 04:58 06:35 Troponin I 0.014 NT-Pro-B Natriuret Pep 4430 H 2680 H Impressions: Chest CT 01/21/18 06:00 IMPRESSION: INTERVAL IMPROVEMENT OF PREVIOUS IDENTIFIED PULMONARY EDEMA WITH MODERATE RIGHT-SIDED PLEURAL EFFUSION AND TRACE LEFT PLEURAL EFFUSION. ADDITIONAL CHRONIC CHANGES ABOVE. Chest X-Ray 01/22/18 00:00 IMPRESSION: STABLE APPEARANCE OF THE CHEST WITH PLEURAL EFFUSIONS AND AIRSPACE DISEASE. Assessment & Plan - Diagnosis (1) Atrial fibrillation with rapid ventricular response Is this a current diagnosis for this admission?: Yes Plan: stable (2) CHF (congestive heart failure) Qualifiers: Heart failure type: diastolic Heart failure chronicity: acute on chronic Qualified Code(s): I50.33 - Acute on chronic diastolic (congestive) heart failure Is this a current diagnosis for this admission?: Yes Plan: as per cardiology (3) Pleural effusion Is this a current diagnosis for this admission?: Yes Plan: Patient is clinically stable and appears to have slight improvement (4) History of renal transplant Is this a current diagnosis for this admission?: Yes
[2018-01-27] MEDS: LOSARTAN POTASSIUM 25 MG TABLET PO SCH (12:54)
[2018-01-27 15:22] VITALS: BP 107/66
--- NOTE | 2018-01-27 21:15 | PDOC DISCHARGE SUMMARY ---
General - Admit/Disc Date/PCP Admission Date/Primary Care Provider: 01/19/18 17:18 Discharge Date: 01/27/18 - Discharge Diagnosis (1) Diastolic CHF, acute on chronic Is this a current diagnosis for this admission?: Yes (2) Acute superficial venous thrombosis of left lower extremity Is this a current diagnosis for this admission?: Yes (3) Atrial fibrillation with rapid ventricular response Is this a current diagnosis for this admission?: Yes (4) History of renal transplant Is this a current diagnosis for this admission?: Yes (5) Moderate mitral regurgitation Is this a current diagnosis for this admission?: Yes (6) Moderate tricuspid regurgitation Is this a current diagnosis for this admission?: Yes (7) Pleural effusion Is this a current diagnosis for this admission?: Yes - Additional Information Resuscitation Status: Full Code Discharge Diet: Cardiac Discharge Activity: Activity As Tolerated, Balance Activity w/Rest, Weigh Daily Prescriptions: Digoxin [Lanoxin 0.125 mg Tablet] 0.125 mg PO DAILY 30 Days #30 tablet Losartan Potassium [Cozaar 25 mg Tablet] 25 mg PO Q12 15 Days #30 tablet Home Medications: Aspirin [Aspirin 325 mg Tablet] 325 mg PO DAILY 01/19/18 Azathioprine [Imuran 50 mg Tablet] 25 mg PO SUTUTHSA@1000 01/19/18 Azathioprine [Imuran 50 mg Tablet] 50 mg PO MOWEFR@1000 01/19/18 Calcium Carbonate [Os-Matheus 500 mg Tablet (Oyster-Shell)] 500 mg PO DAILY Cholecalciferol (Vitamin D3) [Vitamin D3 2000 unit Tablet] 2,000 unit PO DAILY 01/19/18 Clopidogrel Bisulfate [Plavix 75 mg Tablet] 75 mg PO DAILY 01/19/18 Famotidine [Pepcid 20 mg Tablet] 20 mg PO Q12 01/19/18 Furosemide [Lasix 20 mg Tablet] 20 mg PO DAILY 01/19/18 Hydrocodone/Acetaminophen [[place] 5-325 mg Tablet] 1 tab PO Q4HP PRN 01/19/18 Isosorbide Mononitrate [Imdur 30 mg Tablet.er] 30 mg PO DAILY 01/19/18 Metoprolol Tartrate [Lopressor 25 mg Tablet] 50 mg PO Q12 01/19/18 Omeprazole 40 mg PO DAILY 01/19/18 Pravastatin Sodium [Pravachol] 40 mg PO DAILY 01/19/18 Prednisone [Deltasone 1 mg Tablet] 2 mg PO DAILY 01/19/18 Primidone [Mysoline 50 mg Tablet] 100 mg PO BID 01/19/18 Sulfamethoxazole/Trimethoprim [Bactrim 400-80 mg Tablet] 1 tab PO BID 01/19/18 Vit A/Vit C/Vit E/Zinc/Copper [Preservision Areds Softgel] 1 tab PO Q12 Digoxin [Lanoxin 0.125 mg Tablet] 0.125 mg PO DAILY 30 Days #30 tablet 01/24/18 Furosemide [Lasix 20 mg Tablet] 20 mg PO DAILY tablet 01/24/18 Lactobacillus Acidophilus [Bacid 250 mg Tablet] 500 mg PO BID tab 01/24/18 Losartan Potassium [Cozaar 25 mg Tablet] 25 mg PO Q12 15 Days #30 tablet Metoprolol Tartrate [Lopressor 50 mg Tablet] 50 mg PO Q12 tablet 01/24/18 History of Present Illness History of Present Illness: YAHIR MERAZ is a 87 year old female Hospital Course Hospital Course: Pleasant 87 year old female with past medical history of Kidney transplant History of AK, CAD A fib on Plavix and Aspirin Gonzalez's palsy Intentional tremor Dementia The patient lives at home with her daughter and was recently discharge home after being treated for dehydration and Afib RVR. She presented to the hospital on 01/19/18 for generalized weakness, nausea and dyspnea and was found to have Afib with RVR. and bilateral pleural effusions most likely due to diastolic CHF exacerbation secondary to uncontrolled A fib. This was managed by Dr. Byrd from the Cardiology service HR well controlled with Dig and Lopressor Not a candidate for anticoagulation due to advanced age and comorbidities. Doing much better and stable for discharge home. She was actually initially discharged on 01/24/18, and apparently the family were agreeable with discharge. However, the nurse later called to say they did not agree with the discharge because they stated that on a prior admission they felt she was released too early and ended up back in the hospital. They been appealed the discharge. The pale has been overturned today. Patient continues to do well. Patient and daughter are ready for patient to go home. Had a recently diagnosed superficial R LE thrombus. Follow up PCP, Cardiology and Nephrology in 1 week. Home health and Home PT Physical Exam Vital Signs: Temp Pulse Resp BP Pulse Ox 98.0 F 79 20 107/66 94 01/27/18 15:20 01/27/18 15:20 01/27/18 15:20 01/27/18 15:20 01/27/18 15:20 Intake & Output 01/26/18 01/27/18 01/28/18 06:59 06:59 06:59 Intake Total 844 1041 Output Total 950 Balance -106 1041 Weight 49.5 kg 49 kg General appearance: PRESENT: no acute distress Mouth exam: PRESENT: moist Respiratory exam: PRESENT: symmetrical, unlabored. ABSENT: crackles, wheezes Cardiovascular exam: PRESENT: irregular rhythm, systolic murmur GI/Abdominal exam: PRESENT: normal bowel sounds, soft. ABSENT: tenderness Neurological exam: PRESENT: alert, awake, oriented to person, oriented to place Results Laboratory Results: 01/20/18 04:29 01/24/18 06:35 01/19/18 01/21/18 01/24/18 19:50 04:58 06:35 Troponin I 0.014 NT-Pro-B Natriuret Pep 4430 H 2680 H Impressions: Chest CT 01/21/18 06:00 IMPRESSION: INTERVAL IMPROVEMENT OF PREVIOUS IDENTIFIED PULMONARY EDEMA WITH MODERATE RIGHT-SIDED PLEURAL EFFUSION AND TRACE LEFT PLEURAL EFFUSION. ADDITIONAL CHRONIC CHANGES ABOVE. Chest X-Ray 01/22/18 00:00 IMPRESSION: STABLE APPEARANCE OF THE CHEST WITH PLEURAL EFFUSIONS AND AIRSPACE DISEASE. Qualifiers - * PATIENT BEING DISCHARGED WITH ANY OF THE FOLLOWING DIAGNOSIS: Heart Failure AK Pt discharged ACEI/ARBS?: Yes HF Pt being discharged on ACEI for LVEF less than 40%?: Yes HF Pt being discharged on ARBS for LVEF less than 40%?: Yes HF Pt with Afib discharged with Warfarin?: No Reason(s) for not prescribing Warfarin:: Medical Contraindication HF Pt discharged on evidence-based Beta Anmol:: Yes
== END 2018-01-27 18:03 | disposition home health service (06) | DRG 292 ==
LOC: ER 14:11 → EH 17:18 → 5 19:41
PROVIDERS: ADMIT Emergency Medicine; ATTEND Emergency Medicine
DX: I11.0 Hypertensive heart disease with heart failure (principal); Z94.0 Kidney transplant status; I82.812 Embolism and thrombosis of superficial veins of left lower extremity; I48.91 Unspecified atrial fibrillation; I50.33 Acute on chronic diastolic (congestive) heart failure; I08.1 Rheumatic disorders of both mitral and tricuspid valves; I73.89 Other specified peripheral vascular diseases; F03.90 Unspecified dementia, unspecified severity, without behavioral disturbance, psychotic disturbance, mood disturbance, and anxiety; E78.5 Hyperlipidemia, unspecified; G51.0 Bell's palsy; G25.2 Other specified forms of tremor; I27.20 Pulmonary hypertension, unspecified; I25.2 Old myocardial infarction; Z79.01 Long term (current) use of anticoagulants; Z79.82 Long term (current) use of aspirin; Z86.73 Personal history of transient ischemic attack (TIA), and cerebral infarction without residual deficits; Z79.02 Long term (current) use of antithrombotics/antiplatelets; Z79.52 Long term (current) use of systemic steroids; Z82.3 Family history of stroke; Z82.49 Family history of ischemic heart disease and other diseases of the circulatory system; Z88.6 Allergy status to analgesic agent; Z79.899 Other long term (current) drug therapy
CPT/HCPCS: 36415; 71045; 71250; 80048; 80053; 80162; 81001; 82550; 82553; 82607; 82728; 82746; 82803; 83540; 83550; 83605; 83735; 83880; 84100; 84484; 85025; 85027; 85045; 87040; 93005; 93010; 99291; G8978-GP; G8979-GP; J1160; J1650; J1940; J3490; J7500; J7512

== ENCOUNTER 2018-03-05 14:27 | Inpatient (IN) | payer MEDICARE ==
[2018-03-05] MEDS ORDERED: NORMAL SALINE 500 ML IV ONE (14:46)
--- NOTE | 2018-03-05 14:48 | ER Document Report ---
ED General - General Stated Complaint: WEAKNESS Time Seen by Provider: 03/05/18 14:39 Mode of Arrival: Medic Information source: Patient Notes: 87-year-old female brought to the emergency department by EMS for complaints of nausea, vomiting, generalized weakness. This all started yesterday. Patient denies any chest pain, shortness of breath, abdominal pain, vision changes, speech changes, numbness, tingling. TRAVEL OUTSIDE OF THE [place] IN LAST 30 DAYS: No - HPI Onset: Yesterday Onset/Duration: Gradual Quality of pain: No pain Severity: None Associated symptoms: Nausea, Vomiting Exacerbated by: Denies Relieved by: Denies Similar symptoms previously: No Recently seen / treated by doctor: No - Related Data Allergies/Adverse Reactions: morphine Allergy (Verified 08/19/17 16:16) phenobarbital Allergy (Verified 08/19/17 16:16) Past Medical History - Social History Smoking Status: Never Smoker Family History: CVA, Hypertension - Past Medical History Cardiac Medical History: Reports: Hx Atrial Fibrillation, Hx Congestive Heart Failure, Hx Heart Attack, Hx Hypercholesterolemia, Hx Hypertension Neurological Medical History: Denies: Hx Seizures Renal/ Medical History: Denies: Hx Peritoneal Dialysis Skin Medical History: Denies Hx Psoriasis Psychiatric Medical History: Reports: Hx Dementia Traumatic Medical History: Denies: Hx Traumatic Brain Injury Infectious Medical History: Denies: Hx HIV Past Surgical History: Reports: Hx Kidney (Renal Surgery) - transplant in 1975. Denies: Hx Internal Defibrillator, Hx Pacemaker Review of Systems - Review of Systems Constitutional: Weakness EENT: No symptoms reported Cardiovascular: No symptoms reported Respiratory: No symptoms reported Gastrointestinal: Nausea, Vomiting Female Genitourinary: No symptoms reported Musculoskeletal: No symptoms reported Skin: No symptoms reported Hematologic/Lymphatic: No symptoms reported Neurological/Psychological: No symptoms reported -: Yes All other systems reviewed and negative Physical Exam - Vital signs Vitals: Temp Pulse Resp BP Pulse Ox 98.2 F 115 H 22 H 139/92 H 93 03/05/18 14:35 03/05/18 14:35 03/05/18 14:35 03/05/18 14:35 03/05/18 14:35 - Notes Notes: PHYSICAL EXAMINATION: GENERAL: Cachetic HEAD: Atraumatic, normocephalic. EYES: Pupils equal round and reactive to light, extraocular movements intact, conjunctiva are normal. ENT: Nares patent, oropharynx clear without exudates. Moist mucous membranes. NECK: Normal range of motion, supple without lymphadenopathy LUNGS: Breath sounds clear to auscultation bilaterally and equal. No wheezes rales or rhonchi. HEART: Irregularly irregular rhythm. ABDOMEN: Soft, nontender, nondistended abdomen. No guarding, no rebound. No masses appreciated. Female : deferred Musculoskeletal: Normal range of motion, no pitting or edema. No cyanosis. NEUROLOGICAL: Cranial nerves grossly intact. Normal speech. Normal sensory, motor exams PSYCH: Normal mood, normal affect. SKIN: Warm, Dry, normal turgor, no rashes or lesions noted. Course - Re-evaluation Re-evalutation: 03/05/18 18:56 Patient in atrial fibrillation. Given a dose of Cardizem and started on Cardizem drip. Urinalysis shows signs of infection. Blood cultures obtained. Patient started on Rocephin. I contacted Dr. Collazo for admission. He is agreeable with admitting the patient. Patient is currently stable. - Vital Signs Vital signs: Temp Pulse Resp BP Pulse Ox 98.2 F 115 H 21 H 147/89 H 93 03/05/18 14:35 03/05/18 14:35 03/05/18 17:01 03/05/18 16:01 03/05/18 16:01 - Laboratory Result Diagrams: 03/05/18 14:41 03/05/18 14:41 Laboratory results interpreted by me: 03/05/18 03/05/18 03/05/18 14:41 14:41 17:07 RBC 3.42 L Hgb 11.9 L Hct 34.7 L MCV 102 H MCH 34.9 H RDW 15.7 H Seg Neutrophils % 83.4 H Lymphocytes % 11.2 L BUN 22 H Creatinine 0.51 L Glucose 147 H Urine Protein 30 H Urine Ketones TRACE H Ur Leukocyte Esterase LARGE H Urine Ascorbic Acid 40 H - EKG Interpretation by Me Additional EKG results interpreted by me: 03/05/18 16:11 EKG: Ventricular rate 119, QRS duration 68, QTc 439, atrial fibrillation. EKG similar to that done on 01/19/2018. Discharge - Discharge Clinical Impression: Generalized weakness Urinary tract infection Qualifiers: Urinary tract infection type: site unspecified Hematuria presence: without hematuria Qualified Code(s): N39.0 - Urinary tract infection, site not specified Atrial fibrillation Qualifiers: Atrial fibrillation type: unspecified Qualified Code(s): I48.91 - Unspecified atrial fibrillation Condition: Stable Disposition: ADMITTED INPATIENT Admitting Provider: [facility] Admitted: [facility]
[2018-03-05 14:56] LABS: ABSOLUTE LYMPHOCYTES (AUTO) 0.6 10^3/uL (0.5-4.7); ABSOLUTE MONOCYTES (AUTO) 0.2 10^3/uL (0.1-1.4); ABSOLUTE NEUT (AUTO) 4.3 10^3/uL (1.7-8.2); BASOPHILS % (AUTO) 0.8 % (0-2); EOSINOPHILS % (AUTO) 0.1 % (0-6); HEMATOCRIT 34.7 % (36.0-47.0); HEMOGLOBIN 11.9 g/dL (12.0-15.5); LYMPHOCYTES % (AUTO) 11.2 % (13-45); MEAN CORPUSCULAR HEMOGLOBIN 34.9 pg (27.0-33.4); MEAN CORPUSCULAR HGB CONC 34.4 g/dL (32.0-36.0); MEAN CORPUSCULAR VOLUME 102 fl (80-97); MONOCYTES % (AUTO) 4.5 % (3-13); PLATELET COUNT 153 10^3/uL (150-450); RED BLOOD COUNT 3.42 10^6/uL (3.72-5.28); RED CELL DISTRIBUTION WIDTH 15.7 % (11.5-14.0); SEGMENTED NEUTROPHILS % (AUTO) 83.4 % (42-78); TOTAL CELLS COUNTED % (AUTO) 100 %; WHITE BLOOD COUNT 5.1 10^3/uL (4.0-10.5)
[2018-03-05 15:11] LABS: ALANINE AMINOTRANSFERASE 24 U/L (9-52); ALBUMIN 3.5 g/dL (3.5-5.0); ALKALINE PHOSPHATASE 77 U/L (38-126); ANION GAP 9 (5-19); ASPARTATE AMINO TRANSFERASE 30 U/L (14-36); BILIRUBIN,DIRECT 0.3 mg/dL (0.0-0.4); BILIRUBIN,TOTAL 0.4 mg/dL (0.2-1.3); BLOOD UREA NITROGEN 22 mg/dL (7-20); CALCIUM 9.4 mg/dL (8.4-10.2); CARBON DIOXIDE 30 mmol/L (22-30); CHLORIDE 103 mmol/L (98-107); GLUCOSE 147 mg/dL (75-110); LIPASE 44.5 U/L (23-300); POTASSIUM 4.2 mmol/L (3.6-5.0); SODIUM 141.7 mmol/L (137-145); TOTAL PROTEIN 6.4 g/dL (6.3-8.2)
--- NOTE | 2018-03-05 15:18 | RADIOLOGY REPORT (SQ) ---
EXAM DESCRIPTION: CHEST SINGLE VIEW COMPLETED DATE/TIME: 03/05/2018 3:08 pm REASON FOR STUDY: weakness COMPARISON: 01/22/2018 and 01/21/2018 NUMBER OF VIEWS: One view. TECHNIQUE: Single frontal radiographic view of the chest acquired. LIMITATIONS: Motion artifact. FINDINGS: LUNGS AND PLEURA: No opacities, masses or pneumothorax. Small right-sided pleural effusio n. Attenuated blood vessels and flattened jamal-diaphragms. MEDIASTINUM AND HILAR STRUCTURES: No masses. Contour normal. HEART AND VASCULAR STRUCTURES: Heart normal in size. Normal vasculature. BONES: No acute findings. HARDWARE: None in the chest. OTHER: No other significant finding. IMPRESSION: Improved radiographic appearance of the chest noting a small residual right-sided pleura l effusion. No evidence of acute cardiopulmonary abnormality. TECHNICAL DOCUMENTATION: JOB ID: [id number] [employer]- All Rights Reserved Reading location - IP/workstation name: [email or web address]
[2018-03-05] MEDS ORDERED: METOPROLOL TARTRATE PF/INJ 5 MG/5 ML SDV IV ONE (16:15)
[2018-03-05 17:25] LABS: APPEARANCE,URINE SLIGHTLY-CLOUDY; BILIRUBIN,URINE NEGATIVE (NEGATIVE); COLOR,URINE YELLOW; GLUCOSE, URINE NEGATIVE (NEGATIVE); KETONES,URINE TRACE mg/dL (NEGATIVE); LEUKOCYTE ESTERASE,URINE LARGE (NEGATIVE); NITRITE,URINE NEGATIVE (NEGATIVE); PROTEIN,URINE 30 mg/dL (NEGATIVE); URINE SPECIFIC GRAVITY 1.014; UROBILINOGEN,URINE NEGATIVE mg/dL (<2.0)
[2018-03-05] MEDS ORDERED: DILTIAZEM HCL INJ 25 MG/5 ML VIAL IV ONE (18:46)
[2018-03-05] MEDS ORDERED: CEFTRIAXONE INJ 1000 MG VIAL IV ONE (18:47)
[2018-03-05] MEDS ORDERED: DILTIAZEM HCL/D5W 125 MG/125 ML RTUINJ IV PRN ×2 (18:47→19:48)
[2018-03-05] MEDS ORDERED: DILTIAZEM HCL/D5W 125 MG/125 ML RTUINJ IV ONE (18:55)
[2018-03-05 20:22] LABS: INTERNATIONAL RATION (INR) 1.16; PROTHROMBIN TIME 15.4 SEC (11.4-15.4)
[2018-03-05 20:23] LABS: PARTIAL THROMBOPLASTIN TIME 30.4 SEC (23.5-35.8)
[2018-03-05 20:36] LABS: LIPASE 48.1 U/L (23-300)
[2018-03-05 20:50] LABS: CREATINE KINASE MB 0.94 ng/mL (<4.55); TROPONIN I 0.023 ng/mL
[2018-03-05 21:06] LABS: FREE T4 (FREE THYROXINE) 1.04 ng/dL (0.78-2.19)
[2018-03-05 21:20] LABS: THYROID STIMULATING HORMONE 0.76 uIU/mL (0.47-4.68)
--- NOTE | 2018-03-06 00:49 | EKG REPORT ---
SEVERITY:- ABNORMAL ECG - ATRIAL FIBRILLATION ABERRANT COMPLEX, POSSIBLY SUPRAVENTRICULAR : Confirmed by: Isabella Byrd MD 06-Mar-2018 00:48:19
[2018-03-06 02:46] LABS: CREATINE KINASE MB 1.5 ng/mL (<4.55); TROPONIN I 0.03 ng/mL
[2018-03-06] MEDS ORDERED: DILTIAZEM HCL INJ 25 MG/5 ML VIAL ONE ×2 (03:53→03:55)
[2018-03-06] MEDS ORDERED: DILTIAZEM HCL/D5W 125 MG/125 ML RTUINJ IV PRN ×2 (03:54→04:16)
[2018-03-06 05:57] LABS: HEMATOCRIT 36.4 % (36.0-47.0); HEMOGLOBIN 12.3 g/dL (12.0-15.5); MEAN CORPUSCULAR HEMOGLOBIN 34.5 pg (27.0-33.4); MEAN CORPUSCULAR HGB CONC 33.7 g/dL (32.0-36.0); MEAN CORPUSCULAR VOLUME 103 fl (80-97); PLATELET COUNT 131 10^3/uL (150-450); RED BLOOD COUNT 3.55 10^6/uL (3.72-5.28); RED CELL DISTRIBUTION WIDTH 15.6 % (11.5-14.0); WHITE BLOOD COUNT 6.5 10^3/uL (4.0-10.5)
[2018-03-06 06:26] LABS: ALANINE AMINOTRANSFERASE 25 U/L (9-52); ALBUMIN 3.4 g/dL (3.5-5.0); ALKALINE PHOSPHATASE 86 U/L (38-126); ANION GAP 10 (5-19); ASPARTATE AMINO TRANSFERASE 28 U/L (14-36); BILIRUBIN,DIRECT 0.2 mg/dL (0.0-0.4); BILIRUBIN,TOTAL 0.4 mg/dL (0.2-1.3); BLOOD UREA NITROGEN 22 mg/dL (7-20); CALCIUM 9.1 mg/dL (8.4-10.2); CARBON DIOXIDE 28 mmol/L (22-30); CHLORIDE 106 mmol/L (98-107); CHOLESTEROL 176.85 mg/dL (0-200); GLUCOSE 91 mg/dL (75-110); POTASSIUM 4.7 mmol/L (3.6-5.0); SODIUM 143.8 mmol/L (137-145); TOTAL PROTEIN 6.1 g/dL (6.3-8.2); TRIGLYCERIDES 111 mg/dL (<150)
[2018-03-06 06:35] LABS: ABSOLUTE LYMPHOCYTES# (MANUAL) 0.5 10^3/uL (0.5-4.7); ABSOLUTE MONOCYTES # (MANUAL) 0.3 10^3/uL (0.1-1.4); ABSOLUTE NEUTROPHILS# (MANUAL) 5.6 10^3/uL (1.7-8.2); BAND NEUTROPHILS % (MANUAL) 1 % (3-5); BASOPHILS % (MANUAL) 0 % (0-2); EOSINOPHILS % (MANUAL) 1 % (0-6); LYMPHOCYTES % (MANUAL) 8 % (13-45); MONOCYTES % (MANUAL) 5 % (3-13); SEGMENTED NEUTROPHILS % (MAN) 85 % (42-78); TOTAL CELLS COUNTED 100
[2018-03-06 06:37] LABS: ANISOCYTOSIS SLIGHT; DIRECT LDL 110 mg/dL (<100); OVALOCYTES 2+; PLATELET COMMENT DECREASED
[2018-03-06] MEDS ORDERED: HYDROCODONE/ACETAMINOPHEN 5-325 MG TABLET PO PRN (08:28)
[2018-03-06] MEDS ORDERED: LANSOPRAZOLE 30 MG TAB.RAP.DR PO ONE (09:00)
[2018-03-06 09:08] LABS: CREATINE KINASE MB 1.73 ng/mL (<4.55); TROPONIN I 0.026 ng/mL
[2018-03-06] MEDS ORDERED: VIT A PO SCH (10:00)
[2018-03-06] MEDS ORDERED: [UNRECOGNIZED DRUG - OTHER] PO SCH (10:00)
[2018-03-06] MEDS ORDERED: VIT E PO SCH (10:00)
[2018-03-06] MEDS ORDERED: CEFTRIAXONE 1 GM/D5W RTU 1 GM/50 ML RTUPB IV SCH (10:00)
[2018-03-06] MEDS ORDERED: ZINC PO SCH (10:00)
[2018-03-06] MEDS ORDERED: (PENDING PHARMACY ID) (Pravastatin Sodium [Pravachol] 40 MG) PO SCH (10:00)
[2018-03-06] MEDS ORDERED: FUROSEMIDE 20 MG TABLET PO SCH (10:00)
[2018-03-06] MEDS ORDERED: COPPER PO SCH (10:00)
[2018-03-06] MEDS ORDERED: VIT C PO SCH (10:00)
[2018-03-06] MEDS: DIGOXIN 0.125 MG TABLET PO SCH (10:44)
[2018-03-06] MEDS: ASPIRIN 325 MG TABLET PO SCH (10:45)
[2018-03-06] MEDS: ISOSORBIDE MONONITRATE 30 MG TAB.ER.24H PO SCH (10:45)
[2018-03-06] MEDS: CLOPIDOGREL BISULFATE 75 MG TABLET PO SCH (10:45)
[2018-03-06] MEDS: METOPROLOL TARTRATE 25 MG TABLET PO SCH ×2 (10:45→21:51)
[2018-03-06] MEDS: AMLODIPINE BESYLATE 5 MG TABLET PO SCH (10:45)
[2018-03-06] MEDS: CHOLECALCIFEROL (D3) 1,000 UNIT TABLET PO SCH (10:45)
[2018-03-06] MEDS: LACTOBACILLUS ACIDOPHILUS 250 MG TAB PO SCH ×2 (10:45→18:00)
[2018-03-06] MEDS: LOSARTAN POTASSIUM 25 MG TABLET PO SCH ×2 (10:46→21:50)
[2018-03-06] MEDS: PRIMIDONE 50 MG TABLET PO SCH ×2 (10:46→18:00)
[2018-03-06] MEDS: AZATHIOPRINE 50 MG TABLET PO SCH (10:46)
[2018-03-06] MEDS: ENOXAPARIN SODIUM INJ 40 MG/0.4 ML DISP.SYRIN SUBCUT SCH (10:47)
[2018-03-06] MEDS: PREDNISONE 1 MG TABLET PO SCH (10:47)
[2018-03-06] MEDS: CEFTRIAXONE SODIUM 1,000 MG in DEXTROSE 5%-WATER 50 ML IV SCH (11:14)
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
--- NOTE | 2018-03-06 13:07 | Physician Advisory Note ---
Physician Advisor ProgressNote .: Pursuant to the plan for Dayanna Ball, I have reviewed the medical record for this patient. Physician Advisor Statement: Nice documentation of chronic diastolic CHF. Please consider documenting, if you agree: 1. Findings that support dx of Acute diastolic CHF, or state if that dx has been ruled out. 2. "immunosuppression from post-transplant meds" 3. Info about pt's abdominal pain - acute or chronic?, location? associated sx? , most likely cause? Is is new on 03/06, or was it present 03/05 too?, ... status: Afib, UTI, acute CHF, weakness/N/V, are all dx.s most consistent with Obs status initially per CMS, to change to Inpt after proving not safe for d/c after 1 MN in hospital. - This Medicare pt, here w/weakness/N/V, has spent 1 MN in hospital w/tx, but still needing hospitalization for a 2nd MN to monitor as she is transitioned off Cardizem drip to just her usual Dig & metoprolol, evaluating heart further given underlying chronic CHF & MR, clarifying appropriate abx, & evaluating for abd pain that appears to have developed since coming in, so appears appropriate for Inpatient status as of today. Thanks! CK
[2018-03-06 14:41] LABS: URINE AMPHETAMINES SCREEN NEGATIVE; URINE BENZODIAZEPINES SCREEN NEGATIVE; URINE COCAINE SCREEN NEGATIVE; URINE MARIJUANA (THC) SCREEN NEGATIVE; URINE METHADONE SCREEN NEGATIVE; URINE PHENCYCLIDINE SCREEN NEGATIVE
[2018-03-06 14:45] LABS: URINE BARBITURATES SCREEN UNCONFIRMED POSITIVE
--- NOTE | 2018-03-06 16:50 | RADIOLOGY REPORT (SQ) ---
EXAM DESCRIPTION: CT ABD/PELVIS ORAL ONLY COMPLETED DATE/TIME: 03/06/2018 3:58 pm REASON FOR STUDY: ABD pain COMPARISON: CT chest examination dated 01/21/2018 TECHNIQUE: CT scan of the abdomen and pelvis performed without intravenous or oral contrast. Images reviewed with lung, soft tissue, and bone windows. Reconstructed coronal and sagittal MPR images revi ewed. All images stored on PACS. All CT scanners at this facility use dose modulation, iterative reconstruction, and/or weight based d osing when appropriate to reduce radiation dose to as low as reasonably achievable (ALARA). [facility]: Dose Right [facility]: CareDose [facility]: Dose Right [facility]: Teradose 4D [facility]: [employer] RADIATION DOSE: CT Rad equipment meets quality standard of care and radiation dose reduction techniq ues were employed. CTDIvol: 5.0 mGy. DLP: 232 mGy-cm.mGy. LIMITATIONS: The patient's arms obscure detail somewhat producing artifact. FINDINGS: LOWER CHEST: Moderate to large right pleural effusion with compressive atelectatic change s in the lower lobe. Increasing mild atelectasis and small pleural effusion on the left. NON-CONTRASTED LIVER, SPLEEN, ADRENALS: Evaluation limited by lack of IV contrast. No identified sign ificant masses. PANCREAS: No masses. No peripancreatic inflammatory changes. GALLBLADDER: The gallbladder is distended. Gallstones. No christen cholecystic fluid. RIGHT KIDNEY AND URETER: Marked atrophic appearing [place] kidney. There appears to be dilatation of the right renal pelvis and the right ureter. Nonobstructing renal calculus. Assessment limited by lack of IV contrast. LEFT KIDNEY AND URETER: Marked atrophy of the left [place] kidney. Intrarenal vascular and nonobstru cting calculi suggested. Transplanted left renal pelvic kidney. Assessment limited by lack of IV co ntrast. AORTA AND RETROPERITONEUM: Atherosclerotic changes involving the abdominal aorta and branch vessels. Small infrarenal 3.0-3.1 cm abdominal aortic aneurysm. The common iliac arteries are ectatic in ap pearance. No retroperitoneal masses or adenopathy. BOWEL AND PERITONEAL CAVITY: Constipation. Colonic diverticulosis without evidence of diverticuliti s. No free fluid. APPENDIX: Normal. PELVIS, BLADDER, AND ABDOMINAL WALL: Fibroid uterus suggested. Multiple urinary bladder diverticula e. No free fluid. BONES: Dextroconvex scoliosis and multilevel degenerative changes. Stable compression deformity inv olving the T12 vertebra. OTHER: No other significant finding. IMPRESSION: 1 Stable moderate to large right pleural effusion with right lower lobe compressive atel ectatic changes. Increasing mild compressive atelectasis and small left pleural effusion, since the previous CT chest study dated 01/21/2018. 2. Cholelithiasis. The gallbladder is mildly distended. 3 Atherosclerotic changes involving the abdominal aorta and branch vessels. Small infrarenal abdomin al aortic 3.0-3.1 cm aneurysm. 4. Fibroid uterus suggested. 5 Multiple urinary bladder diverticulae. 6. Marked atrophy of the [place] kidneys. Left transplanted renal pelvic kidney. 7. The right renal pelvis and ureter appear dilated. Correlation with ultrasound may be helpful. 8. Additional findings as above. COMMENT: Quality ID # [id number]: Final reports with documentation of one or more dose reduction techniques (e.g., Automated exposure control, adjustment of the mA and/or kV according to patient size, use of iterative reconstruction technique) TECHNICAL DOCUMENTATION: JOB ID: [id number] [employer]- All Rights Reserved Reading location - IP/workstation name: [email or web address]
--- NOTE | 2018-03-06 18:26 | PDOC CONSULTATION ---
Consultation Consult Date: 03/06/18 Consult reason:: abdominal pains History of Present Illness Admission Date/PCP: 03/05/18 19:18 History of Present Illness: YAHIR MERAZ is a 87 year old female has been c/o left sided abdominal pains. Had left kidney transplant left side/flank in 1975. Past Medical History Cardiac Medical History: Reports: Atrial Fibrillation, Congestive Heart Failure , Coronary Artery Disease, Myocardial Infarction, Hyperlipidema, Hypertension, Peripheral Vascular Disease Neurological Medical History: Denies: Seizures Renal/ Medical History: Reports: Chronic Kidney Disease GI Medical History: Reports: Gastroesophageal Reflux Disease Musculoskeltal Medical History: Reports: Arthritis Skin Medical History: Denies: Psoriasis Psychiatric Medical History: Reports: Dementia Traumatic Medical History: Denies: Traumatic Brain Injury Hematology: Denies: Hemophilia, Sickle Cell Disease Infectious Medical History: Denies: HIV Past Surgical History Past Surgical History: Denies: Internal Defibrillator, Pacemaker Social History Smoking Status: Never Smoker Frequency of Alcohol Use: None Hx Recreational Drug Use: No Drugs: None Hx Prescription Drug Abuse: No Family History Family History: Reviewed & Not Pertinent, CVA, Hypertension Parental Family History Reviewed: Yes Children Family History Reviewed: No Sibling(s) Family History Reviewed.: No Medication/Allergy Home Medications: Aspirin [Aspirin 325 mg Tablet] 325 mg PO DAILY 01/19/18 Azathioprine [Imuran 50 mg Tablet] 50 mg PO MOWEFR@1000 01/19/18 Cholecalciferol (Vitamin D3) [Vitamin D3 2000 unit Tablet] 2,000 unit PO DAILY 01/19/18 Clopidogrel Bisulfate [Plavix 75 mg Tablet] 75 mg PO DAILY 01/19/18 Furosemide [Lasix 20 mg Tablet] 20 mg PO DAILY 01/19/18 Hydrocodone/Acetaminophen [[place] 5-325 mg Tablet] 1 tab PO Q4HP PRN 01/19/18 Isosorbide Mononitrate [Imdur 30 mg Tablet.er] 30 mg PO DAILY 01/19/18 Metoprolol Tartrate [Lopressor 25 mg Tablet] 50 mg PO Q12 01/19/18 Omeprazole 40 mg PO DAILY 01/19/18 Pravastatin Sodium [Pravachol] 40 mg PO DAILY 01/19/18 Prednisone [Deltasone 1 mg Tablet] 2 mg PO DAILY 01/19/18 Primidone [Mysoline 50 mg Tablet] 100 mg PO BID 01/19/18 Sulfamethoxazole/Trimethoprim [Bactrim 400-80 mg Tablet] 1 tab PO BID 01/19/18 Vit A/Vit C/Vit E/Zinc/Copper [Preservision Areds Softgel] 1 tab PO Q12 Digoxin [Lanoxin 0.125 mg Tablet] 0.125 mg PO DAILY 30 Days #30 tablet 01/24/18 Lactobacillus Acidophilus [Bacid 250 mg Tablet] 500 mg PO BID tab 01/24/18 Losartan Potassium [Cozaar 25 mg Tablet] 25 mg PO Q12 15 Days #30 tablet Amlodipine Besylate 2.5 mg PO QHS 03/05/18 Amlodipine Besylate 5 mg PO DAILY 03/05/18 Allergies/Adverse Reactions: morphine Allergy (Verified 08/19/17 16:16) phenobarbital Allergy (Verified 08/19/17 16:16) Review of Systems Constitutional: PRESENT: other - no fever/chills Ears: PRESENT: other - no visual/hearing changes Cardiovascular: PRESENT: other - no chest pains/cough Gastrointestinal: PRESENT: abdominal pain Genitourinary: PRESENT: other - no dysuria Neurological: PRESENT: other - no seizures Hematologic/Lymphatic: PRESENT: other - no easy bruising Physical Exam Vital Signs: Temp Pulse Resp BP Pulse Ox 97.6 F 64 16 133/92 H 92 03/06/18 15:33 03/06/18 15:33 03/06/18 15:33 03/06/18 15:33 03/06/18 15:33 Intake & Output 03/05/18 03/06/18 03/07/18 06:59 06:59 06:59 Intake Total 10 Output Total 0 Balance 10 Weight 53 kg General appearance: PRESENT: no acute distress Eye exam: PRESENT: conjunctiva pink Mouth exam: PRESENT: moist Neck exam: PRESENT: full ROM Respiratory exam: PRESENT: clear to auscultation funmi Cardiovascular exam: PRESENT: RRR Pulses: PRESENT: normal radial pulses Vascular exam: PRESENT: normal capillary refill GI/Abdominal exam: PRESENT: tenderness - mild tenderness Left flank/abdomen Rectal exam: PRESENT: deferred Extremities exam: PRESENT: full ROM Musculoskeletal exam: PRESENT: ambulatory Neurological exam: PRESENT: alert, oriented to person, oriented to place, oriented to time, oriented to situation Psychiatric exam: PRESENT: appropriate affect Skin exam: PRESENT: normal color, warm Results Laboratory Results: 03/06/18 04:59 03/06/18 04:59 03/05/18 03/05/18 03/05/18 19:55 19:55 19:55 WBC RBC Hgb Hct MCV MCH MCHC RDW Plt Count Seg Neutrophils % Lymphocytes % Monocytes % Eosinophils % Basophils % Absolute Neutrophils Absolute Lymphocytes Absolute Monocytes Absolute Eosinophils Absolute Basophils Sodium Potassium Chloride Carbon Dioxide Anion Gap BUN Creatinine Est GFR ( Amer) Est GFR (Non-Af Amer) Glucose Calcium Phosphorus 3.0 Magnesium 1.9 Total Bilirubin AST ALT Alkaline Phosphatase Ammonia < 8.7 L Total Protein Albumin Triglycerides Cholesterol LDL Cholesterol Direct VLDL Cholesterol HDL Cholesterol Amylase 36 Lipase 48.1 TSH 0.76 Free T4 1.04 03/06/18 03/06/18 04:59 04:59 WBC 6.5 RBC 3.55 L Hgb 12.3 Hct 36.4 MCV 103 H MCH 34.5 H MCHC 33.7 RDW 15.6 H Plt Count 131 L Seg Neutrophils % Not Reportable Lymphocytes % Not Reportable Monocytes % Not Reportable Eosinophils % Not Reportable Basophils % Not Reportable Absolute Neutrophils Not Reportable Absolute Lymphocytes Not Reportable Absolute Monocytes Not Reportable Absolute Eosinophils Not Reportable Absolute Basophils Not Reportable Sodium 143.8 Potassium 4.7 Chloride 106 Carbon Dioxide 28 Anion Gap 10 BUN 22 H Creatinine 0.47 L Est GFR ( Amer) > 60 Est GFR (Non-Af Amer) > 60 Glucose 91 Calcium 9.1 Phosphorus Magnesium Total Bilirubin 0.4 AST 28 ALT 25 Alkaline Phosphatase 86 Ammonia Total Protein 6.1 L Albumin 3.4 L Triglycerides 111 Cholesterol 176.85 LDL Cholesterol Direct 110 H VLDL Cholesterol 22.0 HDL Cholesterol 49 Amylase Lipase TSH Free T4 03/05/18 03/05/18 03/06/18 19:55 19:55 02:00 Creatine Kinase < 20 L 24 L CK-MB (CK-2) 0.94 Troponin I 0.023 03/06/18 03/06/18 03/06/18 02:00 08:25 08:25 Creatine Kinase 29 L CK-MB (CK-2) 1.50 1.73 Troponin I 0.030 0.026 Impressions: Chest X-Ray 03/05/18 14:46 IMPRESSION: Improved radiographic appearance of the chest noting a small residual right-sided pleural effusion. No evidence of acute cardiopulmonary abnormality. Abdomen/Pelvis CT 03/06/18 00:00 IMPRESSION: 1 Stable moderate to large right pleural effusion with right lower lobe compressive atelectatic changes. Increasing mild compressive atelectasis and small left pleural effusion, since the previous CT chest study dated 2017. 2. Cholelithiasis. The gallbladder is mildly distended. 3 Atherosclerotic changes involving the abdominal aorta and branch vessels. Small infrarenal abdominal aortic 3.0-3.1 cm aneurysm. 4. Fibroid uterus suggested. 5 Multiple urinary bladder diverticulae. 6. Marked atrophy of the [place] kidneys. Left transplanted renal pelvic kidney. 7. The right renal pelvis and ureter appear dilated. Correlation with ultrasound may be helpful. 8. Additional findings as above. Assessment & Plan - Time Time Spent: 30 to 50 Minutes - Plan Summary Plan Summary: No bowel obstruction or any collection caution patient's pain. Has a large hernia left flank/abdomen. No surgical abdomen at this time
[2018-03-06] MEDS: ATORVASTATIN CALCIUM 10 MG TABLET PO SCH (21:50)
[2018-03-06] MEDS: AMLODIPINE BESYLATE 2.5 MG TABLET PO SCH (21:50)
[2018-03-07 05:06] LABS: ABSOLUTE LYMPHOCYTES (AUTO) 0.9 10^3/uL (0.5-4.7); ABSOLUTE MONOCYTES (AUTO) 0.4 10^3/uL (0.1-1.4); ABSOLUTE NEUT (AUTO) 3.8 10^3/uL (1.7-8.2); BASOPHILS % (AUTO) 0.5 % (0-2); EOSINOPHILS % (AUTO) 0.7 % (0-6); HEMATOCRIT 34.8 % (36.0-47.0); HEMOGLOBIN 12.2 g/dL (12.0-15.5); MEAN CORPUSCULAR VOLUME 100 fl (80-97); MONOCYTES % (AUTO) 8.3 % (3-13); PLATELET COUNT 142 10^3/uL (150-450); RED BLOOD COUNT 3.49 10^6/uL (3.72-5.28); RED CELL DISTRIBUTION WIDTH 15.1 % (11.5-14.0); SEGMENTED NEUTROPHILS % (AUTO) 72.5 % (42-78); TOTAL CELLS COUNTED % (AUTO) 100 %; WHITE BLOOD COUNT 5.3 10^3/uL (4.0-10.5)
[2018-03-07] MEDS: LANSOPRAZOLE 30 MG TAB.RAP.DR PO SCH (05:16)
[2018-03-07 05:26] LABS: ALANINE AMINOTRANSFERASE 24 U/L (9-52); ALBUMIN 3.3 g/dL (3.5-5.0); ALKALINE PHOSPHATASE 88 U/L (38-126); ANION GAP 10 (5-19); ASPARTATE AMINO TRANSFERASE 25 U/L (14-36); BILIRUBIN,DIRECT 0.2 mg/dL (0.0-0.4); BILIRUBIN,TOTAL 0.5 mg/dL (0.2-1.3); BLOOD UREA NITROGEN 14 mg/dL (7-20); CALCIUM 9.1 mg/dL (8.4-10.2); CARBON DIOXIDE 30 mmol/L (22-30); CHLORIDE 101 mmol/L (98-107); DIGOXIN 0.44 ng/mL (0.8-2.0); GLUCOSE 104 mg/dL (75-110); POTASSIUM 4.2 mmol/L (3.6-5.0); SODIUM 140.8 mmol/L (137-145); TOTAL PROTEIN 5.8 g/dL (6.3-8.2)
--- NOTE | 2018-03-07 08:42 | PDOC PROGRESS REPORT ---
Subjective Progress Note for:: 03/07/18 Subjective:: Patient is currently doing well Since denied any abdominal pain no nausea no vomiting Off the Cardizem drips Seen by the general surgery yesterday because of a questionable some abdominal pain flank pain and a CT scan of the abdomen and pelvis was done which is all stable Patient's otherwise alert awake and oriented Reason For Visit: URINARY TRACT INFECTION,ATRIAL FIBRILLATION, Physical Exam Vital Signs: Temp Pulse Resp BP Pulse Ox 97.4 F 122 H 18 140/84 H 95 03/07/18 07:38 03/07/18 07:38 03/07/18 07:38 03/07/18 07:38 03/07/18 08:20 Intake & Output 03/06/18 03/07/18 03/08/18 06:59 06:59 06:59 Intake Total 10 1429 Output Total 0 350 Balance 10 1079 Weight 53 kg 49.9 kg General appearance: PRESENT: no acute distress, well-developed, well-nourished Head exam: PRESENT: atraumatic, normocephalic Eye exam: PRESENT: conjunctiva pink, EOMI, PERRLA. ABSENT: scleral icterus Ear exam: PRESENT: normal external ear exam Mouth exam: PRESENT: moist, tongue midline Neck exam: PRESENT: full ROM. ABSENT: carotid bruit, JVD, lymphadenopathy, thyromegaly Respiratory exam: PRESENT: clear to auscultation funmi Cardiovascular exam: PRESENT: RRR. ABSENT: diastolic murmur, rubs, systolic murmur Pulses: PRESENT: normal dorsalis pedis pul, +2 pedal pulses bilateral Vascular exam: PRESENT: normal capillary refill GI/Abdominal exam: PRESENT: normal bowel sounds, soft. ABSENT: distended, guarding, mass, organolmegaly, rebound, tenderness Rectal exam: PRESENT: deferred Musculoskeletal exam: PRESENT: ambulatory Neurological exam: PRESENT: alert, awake, oriented to person, oriented to place , oriented to time, oriented to situation, CN II-XII grossly intact. ABSENT: motor sensory deficit Psychiatric exam: PRESENT: appropriate affect, normal mood. ABSENT: homicidal ideation, suicidal ideation Skin exam: PRESENT: dry, intact, warm. ABSENT: cyanosis, rash Results Laboratory Results: 03/07/18 04:47 03/07/18 04:47 07/17/18 07/17/18 04:47 04:47 WBC 5.3 RBC 3.49 L Hgb 12.2 Hct 34.8 L MCV 100 H MCH 35.0 H MCHC 35.0 RDW 15.1 H Plt Count 142 L Seg Neutrophils % 72.5 Lymphocytes % 18.0 Monocytes % 8.3 Eosinophils % 0.7 Basophils % 0.5 Absolute Neutrophils 3.8 Absolute Lymphocytes 0.9 Absolute Monocytes 0.4 Absolute Eosinophils 0.0 Absolute Basophils 0.0 Sodium 140.8 Potassium 4.2 Chloride 101 Carbon Dioxide 30 Anion Gap 10 BUN 14 Creatinine 0.46 L Est GFR ( Amer) > 60 Est GFR (Non-Af Amer) > 60 Glucose 104 Calcium 9.1 Total Bilirubin 0.5 AST 25 ALT 24 Alkaline Phosphatase 88 Total Protein 5.8 L Albumin 3.3 L 03/05/18 03/05/18 03/06/18 19:55 19:55 02:00 Creatine Kinase < 20 L 24 L CK-MB (CK-2) 0.94 Troponin I 0.023 03/06/18 03/06/18 03/06/18 02:00 08:25 08:25 Creatine Kinase 29 L CK-MB (CK-2) 1.50 1.73 Troponin I 0.030 0.026 Impressions: Chest X-Ray 03/05/18 14:46 IMPRESSION: Improved radiographic appearance of the chest noting a small residual right-sided pleural effusion. No evidence of acute cardiopulmonary abnormality. Abdomen/Pelvis CT 03/06/18 00:00 IMPRESSION: 1 Stable moderate to large right pleural effusion with right lower lobe compressive atelectatic changes. Increasing mild compressive atelectasis and small left pleural effusion, since the previous CT chest study dated 2017. 2. Cholelithiasis. The gallbladder is mildly distended. 3 Atherosclerotic changes involving the abdominal aorta and branch vessels. Small infrarenal abdominal aortic 3.0-3.1 cm aneurysm. 4. Fibroid uterus suggested. 5 Multiple urinary bladder diverticulae. 6. Marked atrophy of the [place] kidneys. Left transplanted renal pelvic kidney. 7. The right renal pelvis and ureter appear dilated. Correlation with ultrasound may be helpful. 8. Additional findings as above. Assessment & Plan - Diagnosis (1) Atrial fibrillation with rapid ventricular response Is this a current diagnosis for this admission?: Yes Plan: Currently off the Cardizem drip is currently follow with the cardiology (2) Generalized weakness Is this a current diagnosis for this admission?: Yes Plan: Get the physical therapy evaluations (3) Intention tremor Is this a current diagnosis for this admission?: Yes Plan: Continues to current medications (4) Urinary tract infection Qualifiers: Urinary tract infection type: site unspecified Hematuria presence: without hematuria Qualified Code(s): N39.0 - Urinary tract infection, site not specified Is this a current diagnosis for this admission?: Yes Plan: Wait for the urine culture and start the patient on IV Rocephin (5) CHF (congestive heart failure) Qualifiers: Heart failure type: diastolic Heart failure chronicity: acute on chronic Qualified Code(s): I50.33 - Acute on chronic diastolic (congestive) heart failure Is this a current diagnosis for this admission?: Yes Plan: Continues to Lasix and follow with the cardiology (6) History of renal transplant Is this a current diagnosis for this admission?: Yes Plan: Continues to current medications and follow with the nephrology as outpatient (7) Impaired circulation of left lower extremity Is this a current diagnosis for this admission?: Yes (8) Moderate mitral regurgitation Is this a current diagnosis for this admission?: Yes (9) Pleural effusion Is this a current diagnosis for this admission?: Yes Plan: Episode of a moderate right-sided pleural effusions patient seen by Dr. 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
[2018-03-07] MEDS: METOPROLOL TARTRATE 25 MG TABLET PO SCH (09:16)
[2018-03-07] MEDS: LOSARTAN POTASSIUM 25 MG TABLET PO SCH (09:16)
[2018-03-07] MEDS: CHOLECALCIFEROL (D3) 1,000 UNIT TABLET PO SCH (09:16)
[2018-03-07] MEDS: ASPIRIN 325 MG TABLET PO SCH (09:17)
[2018-03-07] MEDS: PREDNISONE 1 MG TABLET PO SCH (09:17)
[2018-03-07] MEDS: AMLODIPINE BESYLATE 5 MG TABLET PO SCH (09:18)
[2018-03-07] MEDS: CLOPIDOGREL BISULFATE 75 MG TABLET PO SCH (09:18)
[2018-03-07] MEDS: DIGOXIN 0.125 MG TABLET PO SCH (09:18)
[2018-03-07] MEDS: ISOSORBIDE MONONITRATE 30 MG TAB.ER.24H PO SCH (09:18)
[2018-03-07] MEDS: PRIMIDONE 50 MG TABLET PO SCH ×2 (09:18→17:29)
[2018-03-07] MEDS: LACTOBACILLUS ACIDOPHILUS 250 MG TAB PO SCH ×2 (09:19→17:29)
[2018-03-07] MEDS: ENOXAPARIN SODIUM INJ 40 MG/0.4 ML DISP.SYRIN SUBCUT SCH (09:19)
[2018-03-07] MEDS: CEFTRIAXONE SODIUM 1,000 MG in DEXTROSE 5%-WATER 50 ML IV SCH (09:29)
--- NOTE | 2018-03-07 11:41 | PDOC PROGRESS REPORT ---
Subjective Progress Note for:: 03/07/18 Subjective:: Patient seems to be doing better with gradual improvement. Pt is denying any chest arm or neck discomfort. Patient denying any PND, orthopnea. Patient denied any sustained palpitations, dizziness, syncope, near syncope. Patient denying any fever chills. Patient denying any other significant discomfort. Review of systems: Rest review of systems negative. Medications: Medications have been reviewed. Telemetry strips reviewed. Shows atrial fibrillation with somewhat of a rapid ventricular response. Twelve-lead EKG confirms this. Reason For Visit: URINARY TRACT INFECTION,ATRIAL FIBRILLATION, Physical Exam Vital Signs: Temp Pulse Resp BP Pulse Ox 97.4 F 122 H 18 140/84 H 95 03/07/18 07:38 03/07/18 07:38 03/07/18 07:38 03/07/18 07:38 03/07/18 08:20 Intake & Output 03/06/18 03/07/18 03/08/18 06:59 06:59 06:59 Intake Total 10 1429 Output Total 0 350 Balance 10 1079 Weight 53 kg 49.9 kg Exam: GENERAL: well-nourished and in no acute distress. Alert and oriented x3 HEAD: Atraumatic, normocephalic. EYES: Pupils equal round and reactive to light, extraocular movements intact, sclera anicteric, conjunctiva are normal. ENT: TMs normal, nares patent, oropharynx clear without exudates. Moist mucous membranes. No oral ulcerations or bleeding gums noted NECK: supple without lymphadenopathy. Trachea is central. No cervical or axillary lymphadenopathy noted. Carotids are 2+, JVD WNL LUNGS: Respiration seems nonlabored, no significant accessory muscle action noted. Few bibasilar crackles and scattered wheezing noted. No significant dullness noted on percussion. CHEST: Palpation of the chest wall shows no significant chest wall tenderness. 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 ABDOMEN: Soft, no significant tenderness appreciated, normoactive bowel sounds. No guarding, no rebound. No rigidity noted . No masses appreciated. EXTREMITIES: Pedal pulses are 1-2+, no calf tenderness noted. No clubbing or cyanosis. negative pedal edema noted NEUROLOGICAL: Focused neurological exam showed no significant neurologic deficit. Normal speech, no focal weakness appreciated. PSYCH: Normal mood, normal affect. Judgment and insight within normal limits. SKIN: No significant ecchymosis, skin is noted to be warm. MUSCULOSKELETAL EXAM: No significant acute joint swelling noted. Results Laboratory Results: 03/07/18 04:47 03/07/18 04:47 03/07/18 03/07/18 04:47 04:47 WBC 5.3 RBC 3.49 L Hgb 12.2 Hct 34.8 L MCV 100 H MCH 35.0 H MCHC 35.0 RDW 15.1 H Plt Count 142 L Seg Neutrophils % 72.5 Lymphocytes % 18.0 Monocytes % 8.3 Eosinophils % 0.7 Basophils % 0.5 Absolute Neutrophils 3.8 Absolute Lymphocytes 0.9 Absolute Monocytes 0.4 Absolute Eosinophils 0.0 Absolute Basophils 0.0 Sodium 140.8 Potassium 4.2 Chloride 101 Carbon Dioxide 30 Anion Gap 10 BUN 14 Creatinine 0.46 L Est GFR ( Amer) > 60 Est GFR (Non-Af Amer) > 60 Glucose 104 Calcium 9.1 Total Bilirubin 0.5 AST 25 ALT 24 Alkaline Phosphatase 88 Total Protein 5.8 L Albumin 3.3 L 03/05/18 03/05/18 03/06/18 19:55 19:55 02:00 Creatine Kinase < 20 L 24 L CK-MB (CK-2) 0.94 Troponin I 0.023 03/06/18 03/06/18 03/06/18 02:00 08:25 08:25 Creatine Kinase 29 L CK-MB (CK-2) 1.50 1.73 Troponin I 0.030 0.026 EKG Comments: Atrial fibrillation with rapid ventricular response. No acute ST-T wave changes are noted. Impressions: Chest X-Ray 03/05/18 14:46 IMPRESSION: Improved radiographic appearance of the chest noting a small residual right-sided pleural effusion. No evidence of acute cardiopulmonary abnormality. Abdomen/Pelvis CT 03/06/18 00:00 IMPRESSION: 1 Stable moderate to large right pleural effusion with right lower lobe compressive atelectatic changes. Increasing mild compressive atelectasis and small left pleural effusion, since the previous CT chest study dated 2017. 2. Cholelithiasis. The gallbladder is mildly distended. 3 Atherosclerotic changes involving the abdominal aorta and branch vessels. Small infrarenal abdominal aortic 3.0-3.1 cm aneurysm. 4. Fibroid uterus suggested. 5 Multiple urinary bladder diverticulae. 6. Marked atrophy of the [place] kidneys. Left transplanted renal pelvic kidney. 7. The right renal pelvis and ureter appear dilated. Correlation with ultrasound may be helpful. 8. Additional findings as above. Assessment & Plan - Diagnosis (1) Atrial fibrillation Qualifiers: Atrial fibrillation type: unspecified Qualified Code(s): I48.91 - Unspecified atrial fibrillation Is this a current diagnosis for this admission?: Yes (2) Pleural effusion Is this a current diagnosis for this admission?: Yes (3) CHF (congestive heart failure) Qualifiers: Heart failure type: diastolic Heart failure chronicity: acute on chronic Qualified Code(s): I50.33 - Acute on chronic diastolic (congestive) heart failure Is this a current diagnosis for this admission?: Yes (4) Generalized weakness Is this a current diagnosis for this admission?: Yes - Notes Notes: Atrial fibrillation: Currently heart rate somewhat increased. Have switched patient to metoprolol succinate. Recommend chronic anticoagulation. If patient placed on any chronic anticoagulant will recommend stopping clopidogrel and aspirin. Pleural effusion: Bilateral. Left more than right. Possibly related to diastolic CHF versus right-sided CHF. COPD: Patient seems to have this condition based on review of chest x-ray. Generalized weakness: Possibly related to general debility. - Time Time with patient: Greater than 35 minutes - More than 50% of the time spent coordinating care, discussing management plans with involved caregivers. Management plans discussed with involved personnels. Medical decision making was of moderate to high complexity, patient's has multiple comorbidities. Will discuss with Dr. Tovar. This is to discuss chronic anticoagulation in this patient. Especially as regards risk benefits. Medications reviewed and adjusted accordingly: Yes
--- NOTE | 2018-03-07 22:06 | EKG REPORT ---
SEVERITY:- ABNORMAL ECG - ATRIAL FIBRILLATION, V-RATE [id number] : Confirmed by: Ben Purdy 07-Mar-2018 22:05:09
[2018-03-07] MEDS: METOPROLOL SUCCINATE 50 MG TAB.SR.24H PO SCH (22:22)
[2018-03-07] MEDS: ATORVASTATIN CALCIUM 10 MG TABLET PO SCH (22:24)
[2018-03-08] MEDS: LOSARTAN POTASSIUM 25 MG TABLET PO SCH ×3 (03:32→21:50)
[2018-03-08] MEDS: AMLODIPINE BESYLATE 2.5 MG TABLET PO SCH ×2 (03:32→21:46)
[2018-03-08 05:43] LABS: ABSOLUTE LYMPHOCYTES (AUTO) 1.2 10^3/uL (0.5-4.7); ABSOLUTE MONOCYTES (AUTO) 0.5 10^3/uL (0.1-1.4); ABSOLUTE NEUT (AUTO) 3.4 10^3/uL (1.7-8.2); BASOPHILS % (AUTO) 0.6 % (0-2); EOSINOPHILS % (AUTO) 0.5 % (0-6); HEMATOCRIT 36.8 % (36.0-47.0); HEMOGLOBIN 12.6 g/dL (12.0-15.5); LYMPHOCYTES % (AUTO) 22.4 % (13-45); MEAN CORPUSCULAR HEMOGLOBIN 34.6 pg (27.0-33.4); MEAN CORPUSCULAR HGB CONC 34.4 g/dL (32.0-36.0); MEAN CORPUSCULAR VOLUME 101 fl (80-97); MONOCYTES % (AUTO) 10.4 % (3-13); PLATELET COUNT 147 10^3/uL (150-450); RED BLOOD COUNT 3.65 10^6/uL (3.72-5.28); RED CELL DISTRIBUTION WIDTH 15.5 % (11.5-14.0); SEGMENTED NEUTROPHILS % (AUTO) 66.1 % (42-78); TOTAL CELLS COUNTED % (AUTO) 100 %; WHITE BLOOD COUNT 5.2 10^3/uL (4.0-10.5)
[2018-03-08 06:10] LABS: ALANINE AMINOTRANSFERASE 21 U/L (9-52); ALBUMIN 3.3 g/dL (3.5-5.0); ALKALINE PHOSPHATASE 87 U/L (38-126); ANION GAP 12 (5-19); ASPARTATE AMINO TRANSFERASE 24 U/L (14-36); BILIRUBIN,DIRECT 0.3 mg/dL (0.0-0.4); BILIRUBIN,TOTAL 0.5 mg/dL (0.2-1.3); BLOOD UREA NITROGEN 15 mg/dL (7-20); CALCIUM 9.1 mg/dL (8.4-10.2); CARBON DIOXIDE 26 mmol/L (22-30); CHLORIDE 106 mmol/L (98-107); GLUCOSE 112 mg/dL (75-110); POTASSIUM 4.1 mmol/L (3.6-5.0); SODIUM 143.7 mmol/L (137-145)
[2018-03-08] MEDS: LANSOPRAZOLE 30 MG TAB.RAP.DR PO SCH (06:18)
--- NOTE | 2018-03-08 07:00 | RADIOLOGY REPORT (SQ) ---
Ultrasound chest on 03/08/2018 CLINICAL INDICATION: Quantify right pleural effusion COMPARISON: CT from 03/06/2018 FINDINGS: Limited sonographic imaging is performed throughout bilateral chest. There is a small right pleural effusion that is likely not significantly changed when compared with the recent CT. No left pleural effusion is noted. IMPRESSION: Small right pleural effusion likely stable when compared with the recent CT.
--- NOTE | 2018-03-08 07:17 | RADIOLOGY REPORT (SQ) ---
EXAM DESCRIPTION: U/S ABDOMEN COMPLETE W/O DOP COMPLETED DATE/TIME: 03/08/2018 6:37 am REASON FOR STUDY: abd pain COMPARISON: CT chest 01/21/2018 CT abdomen pelvis 03/06/2018 TECHNIQUE: Dynamic and static grayscale images acquired of the abdomen and recorded on PACS. Additio nal selected color Doppler and spectral images recorded. LIMITATIONS: Midline bowel gas FINDINGS: PANCREAS: Midline pancreas unremarkable LIVER: No masses. Echotexture normal. LIVER VASCULATURE: Normal directional flow of the main portal vein and hepatic veins. GALLBLADDER: Multiple tiny stones layer dependently in the gallbladder. No gallbladder wall thickeni ng or pericholecystic fluid. ULTRASOUND-DETECTED SILVA'S SIGN: Not documented. INTRAHEPATIC DUCTS AND COMMON DUCT: No intrahepatic biliary ductal dilatation. Common bile duct at t he stephane hepatis 7 mm in diameter. Distal most common duct not well seen. INFERIOR VENA CAVA: Normal flow. AORTA: Infrarenal abdominal aorta measures 2.5 cm in greatest diameter RIGHT KIDNEY: [place] right kidney difficult to visualize, very small and echogenic. LEFT KIDNEY: [place] left kidney difficult to visualize, very small and echogenic. There is a left l ower quadrant transplant kidney 10 cm in length. Normal cortical thickness. No hydronephrosis. Nor mal resistive indices on limited transplant renal artery Doppler. SPLEEN: Normal size. No solid masses. PERITONEAL AND PLEURAL SPACES: No ascites or effusions. OTHER: No other significant finding. IMPRESSION: Multiple tiny stones in the gallbladder without definite gallbladder wall thickening or pericholecystic fluid Distal common duct not well seen due to duodenum gas. Distal ductal stone could not be excluded. Normal size left lower quadrant transplant kidney with normal transplant kidney renal artery resistiv e indices. TECHNICAL DOCUMENTATION: JOB ID: [id number]- All Rights Reserved Reading location - IP/workstation name: [email or web address]
[2018-03-08] MEDS: METOPROLOL SUCCINATE 50 MG TAB.SR.24H PO SCH ×2 (09:45→21:47)
[2018-03-08] MEDS: PRIMIDONE 50 MG TABLET PO SCH ×2 (09:45→17:24)
[2018-03-08] MEDS: LACTOBACILLUS ACIDOPHILUS 250 MG TAB PO SCH ×2 (09:45→17:25)
[2018-03-08] MEDS: DIGOXIN 0.125 MG TABLET PO SCH (09:46)
[2018-03-08] MEDS: CLOPIDOGREL BISULFATE 75 MG TABLET PO SCH (09:46)
[2018-03-08] MEDS: ISOSORBIDE MONONITRATE 30 MG TAB.ER.24H PO SCH (09:46)
[2018-03-08] MEDS: CEFTRIAXONE SODIUM 1,000 MG in DEXTROSE 5%-WATER 50 ML IV SCH (09:47)
[2018-03-08] MEDS: AZATHIOPRINE 50 MG TABLET PO SCH (09:47)
[2018-03-08] MEDS: AMLODIPINE BESYLATE 5 MG TABLET PO SCH (09:48)
[2018-03-08] MEDS: ASPIRIN 325 MG TABLET PO SCH (09:48)
[2018-03-08] MEDS: PREDNISONE 1 MG TABLET PO SCH (09:48)
[2018-03-08] MEDS: ENOXAPARIN SODIUM INJ 40 MG/0.4 ML DISP.SYRIN SUBCUT SCH (09:48)
[2018-03-08] MEDS: CHOLECALCIFEROL (D3) 1,000 UNIT TABLET PO SCH (09:49)
--- NOTE | 2018-03-08 12:44 | PDOC PROGRESS REPORT ---
Subjective Progress Note for:: 03/08/18 Subjective:: Patient is currently doing well Patient ultrasound of the abdomen shows a tiny gallstones without any cholecystitis Since denied any abdominal pain no nausea no vomiting Reason For Visit: URINARY TRACT INFECTION,ATRIAL FIBRILLATION, Physical Exam Vital Signs: Temp Pulse Resp BP Pulse Ox 97.8 F 84 15 86/56 L 93 03/08/18 11:40 03/08/18 11:40 03/08/18 11:40 03/08/18 11:40 03/08/18 11:40 Intake & Output 03/07/18 03/08/18 03/09/18 06:59 06:59 06:59 Intake Total 1429 1584 737 Output Total 350 Balance 1079 1584 737 Weight 49.9 kg 52.6 kg General appearance: PRESENT: no acute distress, well-developed, well-nourished Head exam: PRESENT: atraumatic, normocephalic Eye exam: PRESENT: conjunctiva pink, EOMI, PERRLA. ABSENT: scleral icterus Ear exam: PRESENT: normal external ear exam Mouth exam: PRESENT: moist, tongue midline Neck exam: PRESENT: full ROM. ABSENT: carotid bruit, JVD, lymphadenopathy, thyromegaly Respiratory exam: PRESENT: clear to auscultation funmi Cardiovascular exam: PRESENT: RRR. ABSENT: diastolic murmur, rubs, systolic murmur Pulses: PRESENT: normal dorsalis pedis pul, +2 pedal pulses bilateral Vascular exam: PRESENT: normal capillary refill GI/Abdominal exam: PRESENT: normal bowel sounds, soft. ABSENT: distended, guarding, mass, organolmegaly, rebound, tenderness Rectal exam: PRESENT: deferred Extremities exam: ABSENT: pedal edema Neurological exam: PRESENT: alert, awake, oriented to person, oriented to place , oriented to time, oriented to situation, CN II-XII grossly intact. ABSENT: motor sensory deficit Psychiatric exam: PRESENT: appropriate affect, normal mood. ABSENT: homicidal ideation, suicidal ideation Skin exam: PRESENT: dry, intact, warm. ABSENT: cyanosis, rash Results Laboratory Results: 03/08/18 05:34 03/08/18 05:34 03/08/18 03/08/18 05:34 05:34 WBC 5.2 RBC 3.65 L Hgb 12.6 Hct 36.8 MCV 101 H MCH 34.6 H MCHC 34.4 RDW 15.5 H Plt Count 147 L Seg Neutrophils % 66.1 Lymphocytes % 22.4 Monocytes % 10.4 Eosinophils % 0.5 Basophils % 0.6 Absolute Neutrophils 3.4 Absolute Lymphocytes 1.2 Absolute Monocytes 0.5 Absolute Eosinophils 0.0 Absolute Basophils 0.0 Sodium 143.7 Potassium 4.1 Chloride 106 Carbon Dioxide 26 Anion Gap 12 BUN 15 Creatinine 0.49 L Est GFR ( Amer) > 60 Est GFR (Non-Af Amer) > 60 Glucose 112 H Calcium 9.1 Total Bilirubin 0.5 AST 24 ALT 21 Alkaline Phosphatase 87 Total Protein 6.0 L Albumin 3.3 L 03/05/18 03/05/18 03/06/18 19:55 19:55 02:00 Creatine Kinase < 20 L 24 L CK-MB (CK-2) 0.94 Troponin I 0.023 03/06/18 03/06/18 03/06/18 02:00 08:25 08:25 Creatine Kinase 29 L CK-MB (CK-2) 1.50 1.73 Troponin I 0.030 0.026 Impressions: Chest X-Ray 03/05/18 14:46 IMPRESSION: Improved radiographic appearance of the chest noting a small residual right-sided pleural effusion. No evidence of acute cardiopulmonary abnormality. Abdomen/Pelvis CT 03/06/18 00:00 IMPRESSION: 1 Stable moderate to large right pleural effusion with right lower lobe compressive atelectatic changes. Increasing mild compressive atelectasis and small left pleural effusion, since the previous CT chest study dated 2017. 2. Cholelithiasis. The gallbladder is mildly distended. 3 Atherosclerotic changes involving the abdominal aorta and branch vessels. Small infrarenal abdominal aortic 3.0-3.1 cm aneurysm. 4. Fibroid uterus suggested. 5 Multiple urinary bladder diverticulae. 6. Marked atrophy of the [place] kidneys. Left transplanted renal pelvic kidney. 7. The right renal pelvis and ureter appear dilated. Correlation with ultrasound may be helpful. 8. Additional findings as above. Abdomen Ultrasound 03/08/18 00:00 IMPRESSION: Multiple tiny stones in the gallbladder without definite gallbladder wall thickening or pericholecystic fluid Distal common duct not well seen due to duodenum gas. Distal ductal stone could not be excluded. Normal size left lower quadrant transplant kidney with normal transplant kidney renal artery resistive indices. Chest Ultrasound 03/08/18 00:00 IMPRESSION: Small right pleural effusion likely stable when compared with the recent CT. Assessment & Plan - Diagnosis (1) Atrial fibrillation with rapid ventricular response Is this a current diagnosis for this admission?: Yes Plan: Currently off the Cardizem drips (2) Generalized weakness Is this a current diagnosis for this admission?: Yes Plan: Get the physical therapy evaluations (3) Intention tremor Is this a current diagnosis for this admission?: Yes Plan: Continues to current medications (4) Urinary tract infection Qualifiers: Urinary tract infection type: site unspecified Hematuria presence: without hematuria Qualified Code(s): N39.0 - Urinary tract infection, site not specified Is this a current diagnosis for this admission?: Yes Plan: Urine culture is all negative (5) CHF (congestive heart failure) Qualifiers: Heart failure type: diastolic Heart failure chronicity: acute on chronic Qualified Code(s): I50.33 - Acute on chronic diastolic (congestive) heart failure Is this a current diagnosis for this admission?: Yes Plan: Continues to Lasix and follow with the cardiology (6) History of renal transplant Is this a current diagnosis for this admission?: Yes Plan: Continues to current medications and follow with the nephrology as outpatient (7) Impaired circulation of left lower extremity Is this a current diagnosis for this admission?: Yes (8) Moderate mitral regurgitation Is this a current diagnosis for this admission?: Yes (9) Pleural effusion Is this a current diagnosis for this admission?: Yes Plan: Since just ultrasound did not show any significance effusions - Time Time Spent with patient: 15-24 minutes Medications reviewed and adjusted accordingly: Yes Anticipated discharge: Other Within: Other - Inpatient Certification Medical Necessity: Need Close Monitoring Due to Risk of Patient Decompensation 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
--- NOTE | 2018-03-08 13:05 | PDOC PROGRESS REPORT ---
Subjective Progress Note for:: 03/08/18 Subjective:: Patient seems to be doing better. No new complaints. Pt is denying any chest arm or neck discomfort. Patient denying any PND, orthopnea. Patient denied any sustained palpitations, dizziness, syncope, near syncope. Patient denying any fever chills. Patient denying any other significant discomfort. Review of systems: Rest review of systems negative. Medications: Medications have been reviewed. Telemetry strips reviewed. Shows atrial fibrillation with somewhat of a rapid ventricular response. Twelve-lead EKG confirms this. Reason For Visit: URINARY TRACT INFECTION,ATRIAL FIBRILLATION, Physical Exam Vital Signs: Temp Pulse Resp BP Pulse Ox 97.8 F 84 15 86/56 L 93 03/08/18 11:40 03/08/18 11:40 03/08/18 11:40 03/08/18 11:40 03/08/18 11:40 Intake & Output 03/07/18 03/08/18 03/09/18 06:59 06:59 06:59 Intake Total 1429 1584 737 Output Total 350 Balance 1079 1584 737 Weight 49.9 kg 52.6 kg Exam: GENERAL: well-nourished and in no acute distress. Alert and oriented x3 HEAD: Atraumatic, normocephalic. EYES: Pupils equal round and reactive to light, extraocular movements intact, sclera anicteric, conjunctiva are normal. ENT: TMs normal, nares patent, oropharynx clear without exudates. Moist mucous membranes. No oral ulcerations or bleeding gums noted NECK: supple without lymphadenopathy. Trachea is central. No cervical or axillary lymphadenopathy noted. Carotids are 2+, JVD WNL LUNGS: Respiration seems nonlabored, no significant accessory muscle action noted. Few bibasilar crackles and few scattered wheezes rales or rhonchi noted. No significant dullness noted on percussion. CHEST: Palpation of the chest wall shows no significant chest wall tenderness. HEART: [place] [employer]ANT, No PSH, 1/6 PAPA aortic area, 1/6 ocasio systolic murmur mitral area, no rubs, no gallops. ABDOMEN: Soft, no significant tenderness appreciated, normoactive bowel sounds. No guarding, no rebound. No rigidity noted . No masses appreciated. EXTREMITIES: Pedal pulses are 1-2+, no calf tenderness noted. No clubbing or cyanosis. negative pedal edema noted NEUROLOGICAL: Focused neurological exam showed no significant neurologic deficit. Normal speech, no focal weakness appreciated. Parkinsonian tremors noted. PSYCH: Normal mood, normal affect. Judgment and insight within normal limits. SKIN: No significant ecchymosis, skin is noted to be warm. MUSCULOSKELETAL EXAM: No significant acute joint swelling noted. Results Laboratory Results: 03/08/18 05:34 03/08/18 05:34 03/08/18 03/08/18 05:34 05:34 WBC 5.2 RBC 3.65 L Hgb 12.6 Hct 36.8 MCV 101 H MCH 34.6 H MCHC 34.4 RDW 15.5 H Plt Count 147 L Seg Neutrophils % 66.1 Lymphocytes % 22.4 Monocytes % 10.4 Eosinophils % 0.5 Basophils % 0.6 Absolute Neutrophils 3.4 Absolute Lymphocytes 1.2 Absolute Monocytes 0.5 Absolute Eosinophils 0.0 Absolute Basophils 0.0 Sodium 143.7 Potassium 4.1 Chloride 106 Carbon Dioxide 26 Anion Gap 12 BUN 15 Creatinine 0.49 L Est GFR ( Amer) > 60 Est GFR (Non-Af Amer) > 60 Glucose 112 H Calcium 9.1 Total Bilirubin 0.5 AST 24 ALT 21 Alkaline Phosphatase 87 Total Protein 6.0 L Albumin 3.3 L 03/05/18 03/05/18 03/06/18 19:55 19:55 02:00 Creatine Kinase < 20 L 24 L CK-MB (CK-2) 0.94 Troponin I 0.023 03/06/18 03/06/18 03/06/18 02:00 08:25 08:25 Creatine Kinase 29 L CK-MB (CK-2) 1.50 1.73 Troponin I 0.030 0.026 EKG Comments: Telemetry strip shows atrial fibrillation with relatively controlled heart rate response Impressions: Chest X-Ray 03/05/18 14:46 IMPRESSION: Improved radiographic appearance of the chest noting a small residual right-sided pleural effusion. No evidence of acute cardiopulmonary abnormality. Abdomen/Pelvis CT 03/06/18 00:00 IMPRESSION: 1 Stable moderate to large right pleural effusion with right lower lobe compressive atelectatic changes. Increasing mild compressive atelectasis and small left pleural effusion, since the previous CT chest study dated 2017. 2. Cholelithiasis. The gallbladder is mildly distended. 3 Atherosclerotic changes involving the abdominal aorta and branch vessels. Small infrarenal abdominal aortic 3.0-3.1 cm aneurysm. 4. Fibroid uterus suggested. 5 Multiple urinary bladder diverticulae. 6. Marked atrophy of the [place] kidneys. Left transplanted renal pelvic kidney. 7. The right renal pelvis and ureter appear dilated. Correlation with ultrasound may be helpful. 8. Additional findings as above. Abdomen Ultrasound 03/08/18 00:00 IMPRESSION: Multiple tiny stones in the gallbladder without definite gallbladder wall thickening or pericholecystic fluid Distal common duct not well seen due to duodenum gas. Distal ductal stone could not be excluded. Normal size left lower quadrant transplant kidney with normal transplant kidney renal artery resistive indices. Chest Ultrasound 03/08/18 00:00 IMPRESSION: Small right pleural effusion likely stable when compared with the recent CT. Assessment & Plan - Diagnosis (1) Atrial fibrillation Qualifiers: Atrial fibrillation type: unspecified Qualified Code(s): I48.91 - Unspecified atrial fibrillation Is this a current diagnosis for this admission?: Yes (2) Pleural effusion Is this a current diagnosis for this admission?: Yes (3) CHF (congestive heart failure) Qualifiers: Heart failure type: diastolic Heart failure chronicity: acute on chronic Qualified Code(s): I50.33 - Acute on chronic diastolic (congestive) heart failure Is this a current diagnosis for this admission?: Yes (4) Generalized weakness Is this a current diagnosis for this admission?: Yes (5) Moderate to severe pulmonary hypertension Is this a current diagnosis for this admission?: Yes (6) Moderate mitral regurgitation Is this a current diagnosis for this admission?: Yes - Notes Notes: Atrial fibrillation: Currently heart rate somewhat increased. Have switched patient to metoprolol succinate. Recommend chronic anticoagulation. If patient placed on any chronic anticoagulant will recommend stopping clopidogrel and aspirin. Patient currently off Cardizem drip. Pleural effusion: Bilateral. Left more than right. Possibly related to diastolic CHF versus right-sided CHF. Recommend follow-up chest x-rays PA and lateral. Congestive heart failure: [place] to be predominantly right-sided but could well be from diastolic dysfunction and contribution from mitral regurgitation. Continue diuretic therapy, recommend vasodilator therapy. Patient will benefit from evaluation for need for chronic oxygen therapy. This can be done through my office if needed. COPD: Patient seems to have this condition based on review of chest x-ray. Generalized weakness: Possibly related to general debility. - Time Time with patient: 15-25 minutes - CODE STATUS was discussed, patient remains full code. Surrogate decision-maker unchanged. Multiple medical problems were addressed. More than 50% of the time spent coordinating care, discussing management plans with involved caregivers. Management plans discussed with involved personnels. Medical decision making was of moderate to high complexity , patient's has multiple comorbidities. Medications reviewed and adjusted accordingly: Yes
--- NOTE | 2018-03-08 13:09 | CONSULTATION REPORT E ---
Consultation Report NAME: YAHIR MERAZ : 1930 AGE: 87Y DATE: 03/07/2018 323 A TO: MAICO PENDLETON M.D. FROM: KAY TURNER M.D. Requesting Physician The patient is an 87-year-old female who came in with severe respiratory distress, mild to moderate pleural effusion right side. The patient had this pleural effusion on her chest x-ray back on January 21. Had a CT scan of the chest then, showing also moderate amount of pleural effusion. Some pneumonia, right lower lobe and left lower lobe. Currently, the patient is feeling well. Denies any fever. Denies any chills. Denies any increasing cough or purulent sputum. No hemoptysis. No chest pain. PAST MEDICAL HISTORY: History of atrial fibrillation, coronary artery disease, myocardial infarction, hyperlipidemia, hypertension, peripheral vascular disease. Renal/: Chronic kidney disease. GERD. Arthritis. History of dementia. PAST SURGICAL HISTORY: None. SOCIAL HISTORY: The patient has never smoked. Does not drink alcohol. Does not use illicit drugs. Denies any prescription drug abuse. FAMILY HISTORY: Stroke and hypertension. MEDICATIONS: 1. Aspirin. 2. Citalopram. 3. Vitamin D3. 4. Plavix. 5. Lasix. 6. Hydrocodone. 7. Acetaminophen. 8. Imdur. 9. Metoprolol. 10. Omeprazole. 11. Pravastatin. 12. Prednisone. 13. Primidone. 14. Sulfamethoxazole. 15. Digoxin. 16. Lactobacillus. 17. Losartan. 18. Norvasc. ALLERGIES: MORPHINE, PHENOBARBITAL. REVIEW OF SYSTEMS: CONSTITUTIONAL: No fever or chills. No headache, no nausea or vomiting. EYES: No blurry vision. EARS: No hearing changes. CARDIOVASCULAR: No chest pain or worsening dyspnea. RESPIRATORY: dyspnea and chest tightness GI: No nausea, vomiting, diarrhea, or abdominal pain. : No dysuria or hematuria. EXTREMITIES: No joint swelling. SKIN: No rashes or wounds. NEUROLOGIC: no focal weakness or seizure. PHYSICAL EXAMINATION: GENERAL: The patient is awake, oriented x3. Not in apparent respiratory distress. VITAL SIGNS: Temperature 97.9, T-max 97.9. Heart rate 48, blood pressure 117/70, respirations 17. Saturation 94% on 2 liters nasal cannula. EYES: No jaundice or pallor. ENT: No ear drainage noted. No nasal discharge. CHEST AND LUNGS: No wheezing, no rhonchi, no coarse crackles. CARDIOVASCULAR: S1, S2 distinct. Normal rate. ABDOMEN: Flabby, positive bowel sounds, soft, nondistended, nontender. EXTREMITIES: No joint swelling, no cellulitis. LABORATORY: CBC done today showed white count of 5.3, hemoglobin 12.2, hematocrit 34.8, platelet count 542. Bands none. Chemistry done today showed sodium of 140, potassium 4.2, chloride 101, CO2 is 30, BUN 14, creatinine 0.46, hemoglobin A1c is 6.1. Calcium 9.1. Total bilirubin 0.5. Total protein 5.8, albumin 3.3. IMAGING: CT scan of the abdomen and pelvis showed mild to moderate amount of pleural effusion, which seemed to be stable compared to the one 6 weeks ago. ASSESSMENT: 1. PLEURAL EFFUSION, RIGHT SIDE MORE THAN THE LEFT SIDE. Right side appeared to be mild to moderate 2. History of CHF and pulmonary edema. Plan: Will do a chest ultrasound to quantify the pleural effusion. Recommend continuing IV antibiotics. Will reevaluate tomorrow. The patient's pleural effusion on the right side is most likely minimal, and the patient may not require thoracentesis. DICTATING PHYSICIAN: MAICO PENDLETON MD,CINDY.MPH [id number] PHY#: [id number] 1945 ID: [id number] JOB#: [id number] ACCT: [id number] cc:MAICO PENDLETON M.D. > MTDD
--- NOTE | 2018-03-08 13:23 | CONSULTATION REPORT E ---
Consultation Report NAME: YAHIR MERAZ : 1930 AGE: 87Y DATE: 03/06/2018 323 A TO: SABAS JAEGER M.D. FROM: KAY TURNER M.D. Requesting Physician TIME OF CONSULTATION: 3:00 p.m. REASON FOR CONSULTATION: Atrial fibrillation with rapid ventricular response. HISTORY OF PRESENT ILLNESS: Note that the patient is a poor historian. The patient is an 87-year-old female who seems to look older than her stated age and is very cachectic and malnourished, states that since the past few days has been having increasing nausea and vomiting and generalized fatigue and weakness. She appears to be dehydrated and came to the emergency room where she was found to be in atrial fibrillation with rapid ventricular response and she was started on a Cardizem drip. At present, on the Cardizem drip, her heart rate is 64, hence this was stopped by me. The patient denies any shortness of breath, PND, orthopnea, or leg edema. She denies any fever, cough, wheezing, or leg edema. There are no anginal symptoms. There are no TIA or CVA symptoms. There is no leg edema. The patient appears to be dehydrated. PAST MEDICAL HISTORY: Positive for history of hypertension and also history of chronic atrial fibrillation, which is present acute for the last 2-1/2 years. She has not been on any AV salma blocking agents, but her heart rate has been controlled, but now the heart rate has been fast due to the patient's dehydration. She and her daughter in the past have refused anticoagulation due to skin bleeds very easily. Also, the patient looks like she is very high risk for weaning complications of Coumadin and hence this is not being given. She has a history of Gonzalez's palsy many years ago, but no history of CVA. There is no TIA. In 2016, the [id number] and was told that she had pneumonia and also a myocardial infarction. Since the patient had renal transplant, they did not do catheterization and treated her medically with aspirin and Plavix and nitrates. She has a history of renal transplant in 1960 and is on chronic therapy, but is on Bactrim. There is no history of diabetes mellitus. No history of thyroid disease. No history of asthma or COPD. There is no history of sleep apnea. She has no history of coronary artery disease or MD. SOCIAL HISTORY: The patient does not smoke. ALLERGIES: The patient is allergic to: 1. MORPHINE. 2. PHENOBARBITAL. PAST SURGICAL HISTORY: Positive for history of renal transplantation. FAMILY HISTORY: Positive for aneurysms in the lower extremity artery and also coronary artery disease and hypertension. ADVANCED DIRECTIVES: The patient is a FULL CODE. Her daughter is the surrogate healthcare decision maker. The daughter's name is Kathie Lim. MEDICATIONS: 1. Amlodipine 2.5 mg p.o. at bedtime and 2.5 mg p.o. in a.m. 2. Aspirin 325 mg p.o. daily. 3. Atorvastatin 10 mg p.o. at bedtime. 4. Imuran 50 mg p.o. Tuesday, Wednesdays, and Fridays. 5. Ceftriaxone 1000 mg IV daily. 6. Plavix 75 mg p.o. daily. 7. Digoxin 0.125 mg p.o. daily. 8. She was on a Cardizem drip, which has been discontinued. 9. Lovenox 40 mg subcutaneously daily. 10. Lasix 20 mg p.o. daily. 11. Hydrocodone/acetaminophen 1 tablet p.o. q. 4 hours p.r.n. 12. Isosorbide mononitrate 30 mg p.o. daily. 13. Lactobacillus acidophilus 500 mg p.o. b.i.d. 14. Prevacid 30 mg p.o. q. 6 a.m. 15. Losartan 25 mg p.o. q. 12 hours. 16. Metoprolol 50 mg p.o. q. 12 hours. 17. Prednisone 2 mg p.o. daily. 18. Primidone 100 mg p.o. b.i.d. 19. Vitamin A, vitamin C, vitamin E, and zinc 1 tablet p.o. q. 12 hours. REVIEW OF SYSTEMS: CONSTITUTIONAL: Denies any fevers, chills, or rigors. Complains of generalized fatigue and weakness. HEAD: Complains of dizziness, but no headaches. EYES: No history of amblyopia or diplopia. No history of amaurosis fugax. EARS: No history of hearing loss. No history of tinnitus. No history of recurrent ear infections. NOSE: No history of hay fever. No history of rhinitis. No history of nosebleeds. MOUTH: No altered taste sensation. The patient states that the mouth is dry. Tongue is dry. There is no bleeding from the gums. THROAT: There is no odynophagia or dysphagia. There is no recurrent sore throats. SKIN: There are no skin rashes. There is no petechia, ecchymosis. There are no skin lesions. NECK: Denies any neck pain. There is no goiter. LUNGS: No history of asthma, COPD. She has a past history of pneumonia. No history of sleep apnea. No history of pulmonary embolism. History of cough or sputum production. No pleuritic chest pain. No hemoptysis. No history of sleep apnea. No history of pulmonary embolism. No symptoms suggestive of upper or lower respiratory tract infection. CARDIAC: She has a history of presumed coronary artery disease after she sustained a myocardial infarction. Cardiac catheterization on a stress test was not done. She does not want a stress test. There is no prior history of congestive heart failure. She has a history of hypertension. She has a history of chronic atrial fibrillation. She denies any heart failure. There is no PND, orthopnea, leg edema. There is no syncope. GASTROINTESTINAL: History of GERD present. No history of peptic ulcer disease. No history of fatty food intolerance. No history of hepatitis. No history of jaundice. No history of abdominal pain. No history of altered bowel movements. No history of GI bleed. MUSCULOSKELETAL: Has severe arthritis, but no collagen vascular disease. ENDOCRINE: No history of diabetes mellitus or thyroid disease. No history of polydipsia or polyuria. No history of heat or cold intolerance. No history of hirsutism. No history of excessive sweating. RENAL: History of renal transplant. Renal functions have been normal. No symptoms of UTI. No history of hematuria, pyuria, or dysuria. METABOLIC: History of hyperlipidemia present. No history of gout. No history of obesity. The patient appears cachectic and malnourished. CENTRAL NERVOUS SYSTEM: Past history of Gonzalez's palsy. No recurrent . No history of TIA or CVA. No history of headaches, migraines, or seizures. PSYCHIATRIC: No history of anxiety or depression. No history of suicidal or homicidal ideation. VASCULAR: She has a history of peripheral arterial disease, but has no symptoms. There is no history of DVT. HEMATOLOGICAL: No history of bleeding diathesis. No history of clotting disorders. PHYSICAL EXAMINATION: GENERAL: On examination, the patient appears to be chronically ill and cachectic. She is well groomed. She looks older than her stated age. VITAL SIGNS: She is afebrile with a temperature of 97.6 degrees Fahrenheit, pulse is 64 beats per minute, blood pressure is 137/52, respirations are 16 per minute, O2 saturations are 93% on 4 L. HEAD: Atraumatic, normocephalic. EYES: Pupils are equal, round, regular, reactive to light and accommodation. Extraocular movements are normal. There is no conjunctival pallor. There is no scleral icterus. EARS: Tympanic membranes are intact. External auditory canals are clear. NOSE: There is no deviated nasal septum. There is no inflammation of the nasal mucous membrane. MOUTH: Mucous membranes of the mouth are moist. Tongue is moist. There are no ulcers. There is no bleeding from the gums. THROAT: There is no redness of the oropharynx. There are no exudates. SKIN: There are no skin rashes or petechiae. There is some ecchymosis present, but no petechiae. NECK: Supple. There is no JVD. Carotids are equal. There is no bruit. There is no lymphadenopathy. There is no goiter. Trachea is central. LUNGS: A small area of diminished breath sounds in the right base. Lungs are clear without any rhonchi, rales, or wheezing. HEART: S1 and S2 are heard. S1 is of variable intensity. There is no S3 gallop. There is no S4 gallop. There is a systolic murmur in the left sternal border of the apex. There is no rub. ABDOMEN: Soft, nontender. There is no hepatosplenomegaly. Bowel sounds are well heard. There are no tender areas or masses. EXTREMITIES: Femorals are diminished. There are no femoral bruits. Leg pulses are very much diminished. There is no pedal edema. There is no DVT or cellulitis. There is calf tenderness. There is no cyanosis or clubbing. CENTRAL NERVOUS SYSTEM: The patient is conscious, awake, alert, oriented x3 with no focal deficits. PSYCHIATRIC: The patient's judgment and insight seem to be intact and affect is normal. IMAGING: The patient's chest x-ray shows no CHF. There is a small right residual effusion. The patient's EKG shows atrial fibrillation. The patient's abdominal pelvis CT shows: 1. Stable [id number] right pleural effusion with right lower lobe compressive atelectatic changes, increasing mild compressive atelectasis, and small left pleural effusion. 2. Cholelithiasis. Gallbladder is mildly distended. 3. Atherosclerotic changes involving the abdominal aorta and branches with small infrarenal abdominal aortic aneurysm 3 to 3.1 cm aneurysm. 4. Fibroid uterus suggested. 5. Multiple urinary bladder diverticula. 6. 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 Coordination with ultrasound may be helpful. ADDENDUM: Subsequently, after I finished the history, I went back and the patient then complained of left-sided flank pain and being seen by Surgery. LABORATORY: The patient's white count is 6500, hemoglobin is 12.3, hematocrit is 36.4, and the platelet count is 131,000. The patient's pro-time is 15.4, INR is 1.16, PTT is 30.4. The patient's sodium is 143.8, potassium 4.7, chloride 106, CO2 is 28. The patient's BUN is 22, creatinine 0.47. GFR is greater than 60. Glucose is 91. Hemoglobin A1C is 6.1. Her calcium is 9.1. Liver function tests are normal. Her troponin I is negative at 0.00 and 0.026. Her CPK-MB are negative as also the CPK. The patient's HDL cholesterol is good at 49 and LDL cholesterol is 110. Her stridors at 111, albumin is 3.4, total protein is 6.1. The urine opiate, methadone, , amphetamine, benzodiazepine, cocaine, and marijuana are all negative. Barbiturate screen is unconfirmed positive. IMPRESSION: 1. Atrial fibrillation with rapid ventricular response, most likely secondary to dehydration. 2. Dehydration. 3. Left abdominal pain. 4. Right pleural effusion. 5. Hypertension. 6. Hyperlipidemia. 7. Cachexia and malnutrition. 8. History of renal transplant. RECOMMENDATION: Would gently hydrate the patient. Would hold the patient's Lasix. Continue her beta bernadette and digoxin. Check her dig level in the morning since the nausea and vomiting can be caused by dig toxicity. NOTE: Her medications have been reviewed. Medications adjusted. NOTE: Will stop the patient's Lasix. Medical decision making is of high complexity. Sixty minutes spent on this patient with more than 50% of the time spent in direct patient care. Her old records from this hospital admission were also reviewed. I was unable to get a hold of the daughter. Discussed with the patient. Discussed with the attending physician. Dr. Purdy will follow the patient in the a.m. DICTATING PHYSICIAN: SABAS JAEGER M.D. [id number] PHY#: [id number] ID: [id number] JOB#: [id number] ACCT: [id number] cc:SABAS JAEGER M.D. >
[2018-03-08] MEDS: ATORVASTATIN CALCIUM 10 MG TABLET PO SCH (21:47)
[2018-03-09] MEDS: LANSOPRAZOLE 30 MG TAB.RAP.DR PO SCH (05:44)
[2018-03-09 06:02] LABS: ANION GAP 10 (5-19); BLOOD UREA NITROGEN 27 mg/dL (7-20); CALCIUM 9.4 mg/dL (8.4-10.2); CARBON DIOXIDE 30 mmol/L (22-30); CHLORIDE 104 mmol/L (98-107); GLUCOSE 121 mg/dL (75-110); POTASSIUM 4.6 mmol/L (3.6-5.0); SODIUM 143.6 mmol/L (137-145)
[2018-03-09] MEDS: DIGOXIN 0.125 MG TABLET PO SCH (10:10)
[2018-03-09] MEDS: AMLODIPINE BESYLATE 5 MG TABLET PO SCH (10:12)
[2018-03-09] MEDS: LACTOBACILLUS ACIDOPHILUS 250 MG TAB PO SCH ×2 (10:12→17:31)
[2018-03-09] MEDS: ISOSORBIDE MONONITRATE 30 MG TAB.ER.24H PO SCH (10:12)
[2018-03-09] MEDS: METOPROLOL SUCCINATE 50 MG TAB.SR.24H PO SCH ×2 (10:13→22:35)
[2018-03-09] MEDS: CLOPIDOGREL BISULFATE 75 MG TABLET PO SCH (10:13)
[2018-03-09] MEDS: PRIMIDONE 50 MG TABLET PO SCH ×2 (10:13→17:30)
[2018-03-09] MEDS: ASPIRIN 325 MG TABLET PO SCH (10:13)
[2018-03-09] MEDS: CHOLECALCIFEROL (D3) 1,000 UNIT TABLET PO SCH (10:13)
[2018-03-09] MEDS: ENOXAPARIN SODIUM INJ 40 MG/0.4 ML DISP.SYRIN SUBCUT SCH (10:14)
[2018-03-09] MEDS: LOSARTAN POTASSIUM 25 MG TABLET PO SCH ×2 (10:14→22:35)
[2018-03-09] MEDS: PREDNISONE 1 MG TABLET PO SCH (10:17)
--- NOTE | 2018-03-09 10:52 | PDOC PROGRESS REPORT ---
Subjective Progress Note for:: 03/09/18 Subjective:: Patient is currently doing well Patients is seen by the Dr. spence and suggest no need for any thoracocentesis Patient's also heart rate is around 110 range Reason For Visit: URINARY TRACT INFECTION,ATRIAL FIBRILLATION, Physical Exam Vital Signs: Temp Pulse Resp BP Pulse Ox 98.5 F 79 16 155/106 H 94 03/09/18 08:22 03/09/18 08:22 03/09/18 08:22 03/09/18 08:22 03/09/18 08:22 Intake & Output 03/08/18 03/09/18 03/10/18 06:59 06:59 06:59 Intake Total 1584 1431 Balance 1584 1431 Weight 52.6 kg 43.3 kg General appearance: PRESENT: no acute distress Head exam: PRESENT: atraumatic, normocephalic Eye exam: PRESENT: PERRLA Ear exam: PRESENT: normal external ear exam Mouth exam: PRESENT: moist, tongue midline Neck exam: PRESENT: full ROM. ABSENT: carotid bruit, JVD, lymphadenopathy, thyromegaly Respiratory exam: PRESENT: clear to auscultation funmi Cardiovascular exam: PRESENT: +S1, +S2 Pulses: PRESENT: normal dorsalis pedis pul, +2 pedal pulses bilateral Vascular exam: PRESENT: normal capillary refill GI/Abdominal exam: PRESENT: normal bowel sounds, soft Rectal exam: PRESENT: deferred Musculoskeletal exam: PRESENT: ambulatory Neurological exam: PRESENT: alert, awake, oriented to person, oriented to place Psychiatric exam: PRESENT: appropriate affect, normal mood. ABSENT: homicidal ideation, suicidal ideation Skin exam: PRESENT: dry, intact, warm. ABSENT: cyanosis, rash Results Laboratory Results: 03/08/18 05:34 03/09/18 04:58 03/09/18 04:58 Sodium 143.6 Potassium 4.6 Chloride 104 Carbon Dioxide 30 Anion Gap 10 BUN 27 H Creatinine 0.48 L Est GFR ( Amer) > 60 Est GFR (Non-Af Amer) > 60 Glucose 121 H Calcium 9.4 03/05/18 03/05/18 03/06/18 19:55 19:55 02:00 Creatine Kinase < 20 L 24 L CK-MB (CK-2) 0.94 Troponin I 0.023 03/06/18 03/06/18 03/06/18 02:00 08:25 08:25 Creatine Kinase 29 L CK-MB (CK-2) 1.50 1.73 Troponin I 0.030 0.026 Impressions: Chest X-Ray 03/05/18 14:46 IMPRESSION: Improved radiographic appearance of the chest noting a small residual right-sided pleural effusion. No evidence of acute cardiopulmonary abnormality. Abdomen/Pelvis CT 03/06/18 00:00 IMPRESSION: 1 Stable moderate to large right pleural effusion with right lower lobe compressive atelectatic changes. Increasing mild compressive atelectasis and small left pleural effusion, since the previous CT chest study dated 2017. 2. Cholelithiasis. The gallbladder is mildly distended. 3 Atherosclerotic changes involving the abdominal aorta and branch vessels. Small infrarenal abdominal aortic 3.0-3.1 cm aneurysm. 4. Fibroid uterus suggested. 5 Multiple urinary bladder diverticulae. 6. Marked atrophy of the [place] kidneys. Left transplanted renal pelvic kidney. 7. The right renal pelvis and ureter appear dilated. Correlation with ultrasound may be helpful. 8. Additional findings as above. Abdomen Ultrasound 03/08/18 00:00 IMPRESSION: Multiple tiny stones in the gallbladder without definite gallbladder wall thickening or pericholecystic fluid Distal common duct not well seen due to duodenum gas. Distal ductal stone could not be excluded. Normal size left lower quadrant transplant kidney with normal transplant kidney renal artery resistive indices. Chest Ultrasound 03/08/18 00:00 IMPRESSION: Small right pleural effusion likely stable when compared with the recent CT. Assessment & Plan - Diagnosis (1) Atrial fibrillation with rapid ventricular response Is this a current diagnosis for this admission?: Yes Plan: Currently off the Cardizem drips (2) Generalized weakness Is this a current diagnosis for this admission?: Yes Plan: Get the physical therapy evaluations (3) Intention tremor Is this a current diagnosis for this admission?: Yes Plan: Continues to current medications (4) Urinary tract infection Qualifiers: Urinary tract infection type: site unspecified Hematuria presence: without hematuria Qualified Code(s): N39.0 - Urinary tract infection, site not specified Is this a current diagnosis for this admission?: Yes Plan: Urine culture is all negatives will DC the Rocephin (5) CHF (congestive heart failure) Qualifiers: Heart failure type: diastolic Heart failure chronicity: acute on chronic Qualified Code(s): I50.33 - Acute on chronic diastolic (congestive) heart failure Is this a current diagnosis for this admission?: Yes Plan: Patient had a right-sided heart failure and also continues to current medications (6) History of renal transplant Is this a current diagnosis for this admission?: Yes Plan: Continues to current medications and follow with the nephrology as outpatient (7) Impaired circulation of left lower extremity Is this a current diagnosis for this admission?: Yes (8) Moderate mitral regurgitation Is this a current diagnosis for this admission?: Yes (9) Pleural effusion Is this a current diagnosis for this admission?: Yes Plan: Since just ultrasound did not show any significance effusions - Time Time Spent with patient: 15-24 minutes Medications reviewed and adjusted accordingly: Yes Anticipated discharge: Home Within: Other - Inpatient Certification Medical Necessity: Need Close Monitoring Due to Risk of Patient Decompensation 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
--- NOTE | 2018-03-09 11:36 | PROGRESS NOTE E ---
Progress Note NAME: YAHIR MERAZ : 1930 AGE: 87Y DATE: 03/08/2018 ROOM: 323 SUBJECTIVE: The patient is an 87-year-old female who came in with pleural effusion, right lung. Consulted because of right lung pleural effusion. Denies any fever, chills, increasing cough or purulent sputum or hemoptysis, chest pain today. Had a chest ultrasound today showing a small amount of pleural effusion. Appears to be nonloculated. OBJECTIVE: GENERAL: The patient appears weak, afebrile, not in acute respiratory distress. VITAL SIGNS: Temperature 98.3 with T-max 98.3. Heart rate 106, blood pressure 130/81, respirations 20. Saturation 98% oxygen saturation on room air. EYES: No jaundice or pallor. EAR, NOSE AND THROAT: No ear drainage. No nasal discharge. HEAD AND NECK: No neck swelling. No history of swelling. Neck supple. CHEST AND LUNGS: No wheezing, no rhonchi, no coarse crackles. CARDIOVASCULAR: S1, S2 distinct. Normal rate. ABDOMEN: Flabby. Positive bowel sounds. Soft, nondistended, nontender. EXTREMITIES: No joint swelling. No cellulitis. LABORATORY: Today, CBC done today showed white count of 5.3, hemoglobin is 12.6, hematocrit is 36.8, platelet count is 147,000. Chemistry today showed sodium of 143, potassium 4.1, chloride 106, carbon dioxide 36, BUN is 15, creatinine is 0.49 and glucose is 112 and calcium is 9.1. Chest ultrasound today showed small amount of pleural effusion. ASSESSMENT: 1. PLEURAL EFFUSION, RIGHT APPEARED TO BE STABLE AND SMALL AND PATIENT DOES NOT NEED THORACENTESIS AT THIS TIME. 2. HISTORY OF CONGESTIVE HEART FAILURE. 3. HISTORY OF ATRIAL FIBRILLATION. 4. CHRONIC KIDNEY DISEASE. PLAN AND RECOMMENDATION: Optimize CHF therapy. Recommend Pulmonary Clinic followup in 2 months following hospital discharge. Will sign off tonight. If you have any questions, please feel free to call me. DICTATING PHYSICIAN: MAICO PENDLETON MD,CINDY,MPH [id number] PHY#: [id number] ID: [id number] JOB#: [id number] ACCT: [id number] cc: > MTDD
[2018-03-09] MEDS ORDERED: APIXABAN 2.5 MG TABLET PO SCH (18:00)
--- NOTE | 2018-03-09 20:11 | PDOC PROGRESS REPORT ---
Subjective Progress Note for:: 03/09/18 Subjective:: Patient seems to be doing better. No new complaints. Pt is denying any chest arm or neck discomfort. Patient denying any PND, orthopnea. Patient denied any sustained palpitations, dizziness, syncope, near syncope. Patient denying any fever chills. Patient denying any other significant discomfort. Review of systems: Rest review of systems negative. Medications: Medications have been reviewed. Telemetry strips reviewed. Shows atrial fibrillation with somewhat of a rapid ventricular response. Reason For Visit: URINARY TRACT INFECTION,ATRIAL FIBRILLATION, Physical Exam Vital Signs: Temp Pulse Resp BP Pulse Ox 97.9 F 81 20 128/88 H 97 03/09/18 19:25 03/09/18 19:25 03/09/18 19:25 03/09/18 19:25 03/09/18 19:25 Intake & Output 03/08/18 03/09/18 03/10/18 06:59 06:59 06:59 Intake Total 1584 1431 855 Balance 1584 1431 855 Weight 52.6 kg 43.3 kg Exam: GENERAL: well-nourished and in no acute distress. Alert and oriented x3 HEAD: Atraumatic, normocephalic. EYES: Pupils equal round and reactive to light, extraocular movements intact, sclera anicteric, conjunctiva are normal. ENT: TMs normal, nares patent, oropharynx clear without exudates. Moist mucous membranes. No oral ulcerations or bleeding gums noted NECK: supple without lymphadenopathy. Trachea is central. No cervical or axillary lymphadenopathy noted. Carotids are 2+, JVD WNL LUNGS: Respiration seems nonlabored, no significant accessory muscle action noted. Few bibasilar fine crackles and scattered wheezing noted. No significant dullness noted on percussion. CHEST: Palpation of the chest wall shows no significant chest wall tenderness. 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 ABDOMEN: Soft, no significant tenderness appreciated, normoactive bowel sounds. No guarding, no rebound. No rigidity noted . No masses appreciated. EXTREMITIES: Pedal pulses are 1-2+, no calf tenderness noted. No clubbing or cyanosis. negative pedal edema noted NEUROLOGICAL: Focused neurological exam showed no significant neurologic deficit. Normal speech, no focal weakness appreciated. Parkinsonian tremors noted PSYCH: Normal mood, normal affect. Judgment and insight within normal limits. SKIN: No significant ecchymosis, skin is noted to be warm. MUSCULOSKELETAL EXAM: No significant acute joint swelling noted. Results Laboratory Results: 03/08/18 05:34 03/09/18 04:58 03/09/18 04:58 Sodium 143.6 Potassium 4.6 Chloride 104 Carbon Dioxide 30 Anion Gap 10 BUN 27 H Creatinine 0.48 L Est GFR ( Amer) > 60 Est GFR (Non-Af Amer) > 60 Glucose 121 H Calcium 9.4 03/05/18 03/05/18 03/06/18 19:55 19:55 02:00 Creatine Kinase < 20 L 24 L CK-MB (CK-2) 0.94 Troponin I 0.023 03/06/18 03/06/18 03/06/18 02:00 08:25 08:25 Creatine Kinase 29 L CK-MB (CK-2) 1.50 1.73 Troponin I 0.030 0.026 EKG Comments: Atrial fibrillation with intermittent rapid ventricular response but overall well controlled. Impressions: Chest X-Ray 03/05/18 14:46 IMPRESSION: Improved radiographic appearance of the chest noting a small residual right-sided pleural effusion. No evidence of acute cardiopulmonary abnormality. Abdomen/Pelvis CT 03/06/18 00:00 IMPRESSION: 1 Stable moderate to large right pleural effusion with right lower lobe compressive atelectatic changes. Increasing mild compressive atelectasis and small left pleural effusion, since the previous CT chest study dated 2017. 2. Cholelithiasis. The gallbladder is mildly distended. 3 Atherosclerotic changes involving the abdominal aorta and branch vessels. Small infrarenal abdominal aortic 3.0-3.1 cm aneurysm. 4. Fibroid uterus suggested. 5 Multiple urinary bladder diverticulae. 6. Marked atrophy of the [place] kidneys. Left transplanted renal pelvic kidney. 7. The right renal pelvis and ureter appear dilated. Correlation with ultrasound may be helpful. 8. Additional findings as above. Abdomen Ultrasound 03/08/18 00:00 IMPRESSION: Multiple tiny stones in the gallbladder without definite gallbladder wall thickening or pericholecystic fluid Distal common duct not well seen due to duodenum gas. Distal ductal stone could not be excluded. Normal size left lower quadrant transplant kidney with normal transplant kidney renal artery resistive indices. Chest Ultrasound 03/08/18 00:00 IMPRESSION: Small right pleural effusion likely stable when compared with the recent CT. Assessment & Plan - Diagnosis (1) Atrial fibrillation Qualifiers: Atrial fibrillation type: unspecified Qualified Code(s): I48.91 - Unspecified atrial fibrillation Is this a current diagnosis for this admission?: Yes (2) Pleural effusion Is this a current diagnosis for this admission?: Yes (3) CHF (congestive heart failure) Qualifiers: Heart failure type: diastolic Heart failure chronicity: acute on chronic Qualified Code(s): I50.33 - Acute on chronic diastolic (congestive) heart failure Is this a current diagnosis for this admission?: Yes (4) Generalized weakness Is this a current diagnosis for this admission?: Yes (5) Moderate to severe pulmonary hypertension Is this a current diagnosis for this admission?: Yes (6) Moderate mitral regurgitation Is this a current diagnosis for this admission?: Yes - Notes Notes: Atrial fibrillation: Patient noted to be generally stable from cardiac standpoint. Heart rate slightly on the high side but these days we have moved away from tight rate control unless patient has symptomatic palpitations or has history of cardiomyopathy or depressed LVEF. Feel that heart rate is reasonably controlled on current medications. Continue with current strategy of rate control. Chronic anticoagulation is recommended but does have some relative contraindication. Will discuss this further with primary care attending. If Eliquis at 2.5 mg p.o. twice daily is used, would then recommend to stop Plavix and aspirin. Pleural effusion: Currently is stable and minor. Possibly related to pulmonary hypertension and CHF. CHF: Currently seems compensated. Continue with current therapeutic regimen. Generalized weakness: Improved. Moderate to severe pulmonary hypertension: Possibly related to underlying COPD, CHF, diastolic dysfunction. Moderate mitral regurgitation: Will recommend follow-up echocardiogram in about 4-6 months to assess this further. - Time Time with patient: 15-25 minutes - CODE STATUS was discussed, patient remains full code. Surrogate decision-maker unchanged. Multiple medical problems were addressed. More than 50% of the time spent coordinating care, discussing management plans with involved caregivers. Management plans discussed with involved personnels. Medical decision making was of moderate to high complexity , patient's has multiple comorbidities. Medications reviewed and adjusted accordingly: Yes
[2018-03-09] MEDS: ATORVASTATIN CALCIUM 10 MG TABLET PO SCH (22:35)
[2018-03-09] MEDS: AMLODIPINE BESYLATE 2.5 MG TABLET PO SCH (22:35)
[2018-03-10] MEDS: LANSOPRAZOLE 30 MG TAB.RAP.DR PO SCH (05:46)
[2018-03-10 06:20] LABS: ABSOLUTE EOSINOPHILS # (AUTO) 0.1 10^3/uL (0.0-0.6); ABSOLUTE LYMPHOCYTES (AUTO) 0.9 10^3/uL (0.5-4.7); ABSOLUTE MONOCYTES (AUTO) 0.4 10^3/uL (0.1-1.4); ABSOLUTE NEUT (AUTO) 3.3 10^3/uL (1.7-8.2); BASOPHILS % (AUTO) 0.4 % (0-2); EOSINOPHILS % (AUTO) 1.8 % (0-6); HEMATOCRIT 35.3 % (36.0-47.0); LYMPHOCYTES % (AUTO) 18.7 % (13-45); MEAN CORPUSCULAR HEMOGLOBIN 34.4 pg (27.0-33.4); MEAN CORPUSCULAR VOLUME 101 fl (80-97); MONOCYTES % (AUTO) 8.7 % (3-13); PLATELET COUNT 146 10^3/uL (150-450); RED BLOOD COUNT 3.49 10^6/uL (3.72-5.28); RED CELL DISTRIBUTION WIDTH 15.7 % (11.5-14.0); SEGMENTED NEUTROPHILS % (AUTO) 70.4 % (42-78); TOTAL CELLS COUNTED % (AUTO) 100 %; WHITE BLOOD COUNT 4.6 10^3/uL (4.0-10.5)
[2018-03-10 06:36] LABS: ANION GAP 10 (5-19); BLOOD UREA NITROGEN 30 mg/dL (7-20); CALCIUM 9.4 mg/dL (8.4-10.2); CARBON DIOXIDE 29 mmol/L (22-30); CHLORIDE 102 mmol/L (98-107); GLUCOSE 95 mg/dL (75-110); POTASSIUM 4.5 mmol/L (3.6-5.0); SODIUM 140.5 mmol/L (137-145)
[2018-03-10 08:13] VITALS: BP 131/78
--- NOTE | 2018-03-10 12:20 | PDOC PROGRESS REPORT ---
Subjective Progress Note for:: 03/10/18 Subjective:: Patient seems to be doing better. No new complaints. Pt is denying any chest arm or neck discomfort. Patient denying any PND, orthopnea. Patient denied any sustained palpitations, dizziness, syncope, near syncope. Patient denying any fever chills. Patient denying any other significant discomfort. Review of systems: Rest review of systems negative. Medications: Medications have been reviewed. Telemetry strips reviewed. Shows atrial fibrillation with heart rate response now well controlled. Reason For Visit: URINARY TRACT INFECTION,ATRIAL FIBRILLATION, Physical Exam Vital Signs: Temp Pulse Resp BP Pulse Ox 97.5 F 56 L 18 131/78 H 96 03/10/18 09:12 03/10/18 09:12 03/10/18 09:12 03/10/18 09:12 03/10/18 09:12 Intake & Output 03/09/18 03/10/18 03/11/18 06:59 06:59 06:59 Intake Total 1431 858 Balance 1431 858 Weight 43.3 kg 51.3 kg Exam: GENERAL: well-nourished and in no acute distress. Alert and oriented x3 HEAD: Atraumatic, normocephalic. EYES: Pupils equal round and reactive to light, extraocular movements intact, sclera anicteric, conjunctiva are normal. ENT: TMs normal, nares patent, oropharynx clear without exudates. Moist mucous membranes. No oral ulcerations or bleeding gums noted NECK: supple without lymphadenopathy. Trachea is central. No cervical or axillary lymphadenopathy noted. Carotids are 2+, JVD WNL LUNGS: Respiration seems nonlabored, no significant accessory muscle action noted. Breath sounds clear to auscultation bilaterally and equal noted. No wheezes rales or rhonchi noted. No significant dullness noted on percussion. CHEST: Palpation of the chest wall shows no significant chest wall tenderness. 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 ABDOMEN: Soft, no significant tenderness appreciated, normoactive bowel sounds. No guarding, no rebound. No rigidity noted . No masses appreciated. EXTREMITIES: Pedal pulses are 1-2+, no calf tenderness noted. No clubbing or cyanosis. negative pedal edema noted NEUROLOGICAL: Focused neurological exam showed no significant neurologic deficit. Normal speech, no focal weakness appreciated. Parkinsonian tremors noted. PSYCH: Normal mood, normal affect. Judgment and insight within normal limits. SKIN: No significant ecchymosis, skin is noted to be warm. MUSCULOSKELETAL EXAM: No significant acute joint swelling noted. Results Laboratory Results: 03/10/18 05:30 03/10/18 05:30 03/10/18 03/10/18 05:30 05:30 WBC 4.6 RBC 3.49 L Hgb 12.0 Hct 35.3 L MCV 101 H MCH 34.4 H MCHC 34.0 RDW 15.7 H Plt Count 146 L Seg Neutrophils % 70.4 Lymphocytes % 18.7 Monocytes % 8.7 Eosinophils % 1.8 Basophils % 0.4 Absolute Neutrophils 3.3 Absolute Lymphocytes 0.9 Absolute Monocytes 0.4 Absolute Eosinophils 0.1 Absolute Basophils 0.0 Sodium 140.5 Potassium 4.5 Chloride 102 Carbon Dioxide 29 Anion Gap 10 BUN 30 H Creatinine 0.47 L Est GFR ( Amer) > 60 Est GFR (Non-Af Amer) > 60 Glucose 95 Calcium 9.4 03/05/18 03/05/18 03/06/18 19:55 19:55 02:00 Creatine Kinase < 20 L 24 L CK-MB (CK-2) 0.94 Troponin I 0.023 03/06/18 03/06/18 03/06/18 02:00 08:25 08:25 Creatine Kinase 29 L CK-MB (CK-2) 1.50 1.73 Troponin I 0.030 0.026 Impressions: Chest X-Ray 03/05/18 14:46 IMPRESSION: Improved radiographic appearance of the chest noting a small residual right-sided pleural effusion. No evidence of acute cardiopulmonary abnormality. Abdomen/Pelvis CT 03/06/18 00:00 IMPRESSION: 1 Stable moderate to large right pleural effusion with right lower lobe compressive atelectatic changes. Increasing mild compressive atelectasis and small left pleural effusion, since the previous CT chest study dated 2017. 2. Cholelithiasis. The gallbladder is mildly distended. 3 Atherosclerotic changes involving the abdominal aorta and branch vessels. Small infrarenal abdominal aortic 3.0-3.1 cm aneurysm. 4. Fibroid uterus suggested. 5 Multiple urinary bladder diverticulae. 6. Marked atrophy of the [place] kidneys. Left transplanted renal pelvic kidney. 7. The right renal pelvis and ureter appear dilated. Correlation with ultrasound may be helpful. 8. Additional findings as above. Abdomen Ultrasound 03/08/18 00:00 IMPRESSION: Multiple tiny stones in the gallbladder without definite gallbladder wall thickening or pericholecystic fluid Distal common duct not well seen due to duodenum gas. Distal ductal stone could not be excluded. Normal size left lower quadrant transplant kidney with normal transplant kidney renal artery resistive indices. Chest Ultrasound 03/08/18 00:00 IMPRESSION: Small right pleural effusion likely stable when compared with the recent CT. Assessment & Plan - Diagnosis (1) Atrial fibrillation Qualifiers: Atrial fibrillation type: unspecified Qualified Code(s): I48.91 - Unspecified atrial fibrillation Is this a current diagnosis for this admission?: Yes (2) Pleural effusion Is this a current diagnosis for this admission?: Yes (3) CHF (congestive heart failure) Qualifiers: Heart failure type: diastolic Heart failure chronicity: acute on chronic Qualified Code(s): I50.33 - Acute on chronic diastolic (congestive) heart failure Is this a current diagnosis for this admission?: Yes (4) Generalized weakness Is this a current diagnosis for this admission?: Yes (5) Moderate to severe pulmonary hypertension Is this a current diagnosis for this admission?: Yes (6) Moderate mitral regurgitation Is this a current diagnosis for this admission?: Yes - Notes Notes: Atrial fibrillation: Currently rate is well controlled. Continue with current strategy of rate control. Chronic anticoagulation is recommended but does have some relative contraindication. Will discuss this further with primary care attending. If Eliquis at 2.5 mg p.o. twice daily is used, would then recommend to stop Plavix and aspirin. Pleural effusion: Currently is stable and minor. Possibly related to pulmonary hypertension and CHF. CHF: Currently seems compensated. Continue with current therapeutic regimen. Generalized weakness: Improved. Moderate to severe pulmonary hypertension: Possibly related to underlying COPD, CHF, diastolic dysfunction. Moderate mitral regurgitation: Will recommend follow-up echocardiogram in about 4-6 months to assess this further. - Time Time with patient: 15-25 minutes - CODE STATUS was discussed, patient remains full code. Surrogate decision-maker unchanged. Multiple medical problems were addressed. More than 50% of the time spent coordinating care, discussing management plans with involved caregivers. Management plans discussed with involved personnels. Medical decision making was of moderate to high complexity , patient's has multiple comorbidities.
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
== END 2018-03-10 09:55 | disposition home health service (06) | DRG 308 ==
LOC: ER 14:27 → EH 19:18 → 3W 21:41
PROVIDERS: ADMIT Family Medicine; ATTEND Internal Medicine
DX: I48.91 Unspecified atrial fibrillation (principal); I50.33 Acute on chronic diastolic (congestive) heart failure; Z94.0 Kidney transplant status; N39.0 Urinary tract infection, site not specified; I13.0 Hypertensive heart and chronic kidney disease with heart failure and stage 1 through stage 4 chronic kidney disease, or unspecified chronic kidney disease; E46 Unspecified protein-calorie malnutrition; R11.2 Nausea with vomiting, unspecified; N18.9 Chronic kidney disease, unspecified; I34.0 Nonrheumatic mitral (valve) insufficiency; K21.9 Gastro-esophageal reflux disease without esophagitis; I27.20 Pulmonary hypertension, unspecified; E86.0 Dehydration; I73.9 Peripheral vascular disease, unspecified; E78.00 Pure hypercholesterolemia, unspecified; G25.2 Other specified forms of tremor; F03.90 Unspecified dementia, unspecified severity, without behavioral disturbance, psychotic disturbance, mood disturbance, and anxiety; Z79.02 Long term (current) use of antithrombotics/antiplatelets; Z79.82 Long term (current) use of aspirin; Z79.52 Long term (current) use of systemic steroids; Z79.899 Other long term (current) drug therapy; Z68.22 Body mass index [BMI] 22.0-22.9, adult
CPT/HCPCS: 36415; 51701; 71045; 74176; 76604; 76700; 80048; 80053; 80061; 80076; 80162; 80307; 81001; 82140; 82150; 82550; 82553; 83036; 83690; 83735; 84100; 84439; 84443; 84484; 85025; 85610; 85730; 87040; 87086; 93005; 93010; 96360; 99285; G8978-GP; G8979-GP; J0696; J1650; J3490; J7040; J7500; J7512